=== PATIENT | female | born 1980 | race Caucasian/White ===

== ENCOUNTER → 2016-09-21 | Outpatient (CLI) | payer BC | LOC: MW.CHFP 14:59 | PROVIDERS: ATTEND Physician Assistant | DX: R10.9 Unspecified abdominal pain (principal) | CPT/HCPCS: 81001 ==

== ENCOUNTER 2017-01-11 02:44 | Emergency (ER) | payer BC, MEDICAID ==
--- NOTE | 2017-01-11 03:09 | EDM.PDOC ---
ED HPI GENERAL MEDICAL PROBLEM - General Chief Complaint: Chest Pain Stated Complaint: UNK Time Seen by Provider: 01/11/17 03:07 - History of Present Illness INITIAL COMMENTS - FREE TEXT/NARRATIVE: HISTORY AND PHYSICAL: History of present illness: Patient 36-year-old female presents with concern of chest pain and anxiety she denies associated shortness breath palpitations nausea vomiting or other complaints states she's been under a lot of personal stress lately Review of systems: As per history of present illness and below otherwise all systems reviewed and negative. Past medical history: As per history of present illness and as reviewed below otherwise noncontributory. Surgical history: As per history of present illness and as reviewed below otherwise noncontributory. Social history: No reported history of drug or alcohol abuse. Family history: As per history of present illness and as reviewed below otherwise noncontributory. Physical exam: HEENT: Atraumatic, normocephalic, pupils reactive, negative for conjunctival pallor or scleral icterus, mucous membranes moist, throat clear, neck supple, nontender, trachea midline. Lungs: Clear to auscultation, breath sounds equal bilaterally, chest nontender. Heart: S1S2, regular, negative for clicks, rubs, or JVD. Abdomen: Soft, nondistended, nontender. Negative for masses or hepatosplenomegaly. Negative for costovertebral tenderness. Pelvis: Stable nontender. Genitourinary: Deferred. Rectal: Deferred. Extremities: Atraumatic, negative for cords or calf pain. Neurovascular unremarkable. Neuro: Awake, alert, oriented. Cranial nerves II through XII unremarkable. Cerebellum unremarkable. Motor and sensory unremarkable throughout. Exam nonfocal. Diagnostics: CBC CMP troponin PT/INR chest x-ray EKG Therapeutics: IV O2 monitor Impression: #1 atypical chest pain #2 anxiety Definitive disposition and diagnosis as appropriate pending reevaluation and review of above. chest pain Pain Score (Numeric/FACES): 5 - Related Data Allergies Allergy/AdvReac Type Severity Reaction Status Date / Time diphenhydramine Allergy hard time Verified 01/11/17 02:50 [From Benadryl] breathing divalproex sodium Allergy Change Verified 01/11/17 02:50 [From Depakote] Mental Status fluoxetine HCl [From Prozac] Allergy Change Verified 01/11/17 02:50 Mental Status gabapentin [From Neurontin] Allergy Change Verified 01/11/17 02:50 Mental Status Penicillins Allergy Difficulty Verified 01/11/17 02:50 Breathing Dtp Shot Allergy Cannot Uncoded 01/11/17 02:50 Remember Home Meds: Home Meds Ascorbic Acid [Vitamin C] 2 tab PO DAILY 07/24/16 [History] Past Medical History - Past Health History Medical/Surgical History: Denies Medical/Surgical History HEENT History: Reports: None Cardiovascular History: Reports: Other (See Below) Other Cardiovascular History: palpitations Respiratory History: Reports: None, Other (See Below) Other Respiratory History: REports sleep apnea, "but not bad enough for a machine", Current cold symptoms "cough, runny nose, pushing fluids to releave symptoms" Gastrointestinal History: Reports: None Other Gastrointestinal History: REcent abodminal Pain Genitourinary History: Reports: None 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 OB/BYN History: cyst on right ovary Musculoskeletal History: Reports: None, Other (See Below) Other Musculoskeletal History: Raynauds Disease Neurological History: Reports: Seizure Psychiatric History: Reports: Anxiety, Depression Endocrine/Metabolic History: Reports: None Other Endocrine/Metabolic History: Have been checking and watching my Thyroid Hematologic History: Reports: None Immunologic History: Reports: None Oncologic (Cancer) History: Reports: None Dermatologic History: Reports: None, Other (See Below) Other Dermatologic History: Eczema - Infectious Disease History Infectious Disease History: Reports: Chicken Pox - Past Surgical History Head Surgeries/Procedures: Reports: None HEENT Surgical History: Reports: None GI Surgical History: Reports: None Female Surgical History: Reports: Section Neurological Surgical History: Reports: None Oncologic Surgical History: Reports: None Social & Family History - Family History Family Medical History: Unobtainable - Tobacco Use Smoking Status *Q: Current Every Day Smoker Years of Tobacco use: 13 Packs/Tins Daily: 0.5 Used Tobacco, but Quit: No Second Hand Smoke Exposure: Yes - Caffeine Use Caffeine Use: Reports: Energy Drinks - Alcohol Use Days Per Week of Alcohol Use: 0 - Recreational Drug Use Recreational Drug Use: No Drug Use in Last 12 Months: No ED ROS GENERAL - Review of Systems Review Of Systems: ROS reveals no pertinent complaints other than HPI. ED EXAM, GENERAL - Physical Exam Exam: See Below (See dictation) Course - Vital Signs Last Recorded V/S: Last Vital Signs Temp 36.9 C 01/11/17 02:50 Pulse 90 01/11/17 02:50 Resp 18 01/11/17 02:50 BP 130/96 H 01/11/17 02:50 Pulse Ox 100 01/11/17 02:50 - Orders/Labs/Meds Orders: Active Orders 24 hr Category Date Time Status EKG Documentation Completion [RC] STAT Care 01/11/17 03:00 Active Chest 1V Frontal [CR] Stat Exams 01/11/17 03:00 Ordered COMPREHENSIVE METABOLIC PN,CMP [CHEM] Stat Lab 01/11/17 02:50 Received INR,PT,PROTHROMBIN TIME [COAG] Stat Lab 01/11/17 02:50 Received TROPONIN I [CHEM] Stat Lab 01/11/17 02:50 Received Labs: Laboratory Tests 01/11/17 Range/Units 02:50 WBC 12.86 H (4.0-11.0) K/uL RBC 4.56 (4.30-5.90) M/uL Hgb 13.9 (12.0-16.0) g/dL Hct 40.8 (36.0-46.0) % MCV 89.5 (80.0-98.0) fL MCH 30.5 (27.0-32.0) pg MCHC 34.1 (31.0-37.0) g/dL RDW Std Deviation 42.9 (28.0-62.0) fl RDW Coeff of Arpit 13 (11.0-15.0) % Plt Count 446 H (150-400) K/uL MPV 10.30 (7.40-12.00) fL Neut % (Auto) 55.1 (48.0-80.0) % Lymph % (Auto) 34.0 (16.0-40.0) % Bladen % (Auto) 7.2 (0.0-15.0) % Eos % (Auto) 2.8 (0.0-7.0) % Baso % (Auto) 0.9 (0.0-1.5) % Neut # (Auto) 7.1 H (1.4-5.7) K/uL Lymph # (Auto) 4.4 H (0.6-2.4) K/uL Bladen # (Auto) 0.9 H (0.0-0.8) K/uL Eos # (Auto) 0.4 (0.0-0.7) K/uL Baso # (Auto) 0.1 (0.0-0.1) K/uL Nucleated RBC % 0.0 /100WBC Nucleated RBCs # 0 K/uL Departure - Departure Time of Disposition: 03:08 Disposition: Home, Self-Care 01 Condition: Good Clinical Impression: Atypical chest pain, Anxiety - Discharge Information Forms: ED Department Discharge Additional Instructions: The following information is given to patients seen in the emergency department who are being discharged to home. This information is to outline your options for follow-up care. We provide all patients seen in our emergency department with a follow-up referral. The need for follow-up, as well as the timing and circumstances, are variable depending upon the specifics of your emergency department visit. If you don't have a primary care physician on staff, we will provide you with a referral. We always advise you to contact your personal physician following an emergency department visit to inform them of the circumstance of the visit and for follow-up with them and/or the need for any referrals to a consulting specialist. The emergency department will also refer you to a specialist when appropriate. This referral assures that you have the opportunity for followup care with a specialist. All of these measure are taken in an effort to provide you with optimal care, which includes your followup. Under all circumstances we always encourage you to contact your private physician who remains a resource for coordinating your care. When calling for followup care, please make the office aware that this follow-up is from your recent emergency room visit. If for any reason you are refused follow-up, please contact the [facility] emergency department at and asked to speak to the emergency department charge nurse. Follow-up primary medical doctor 1-2 days continue current medications return as needed as discussed - My Orders Last 24 Hours: My Active Orders 01/11/17 02:50 COMPREHENSIVE METABOLIC PN,CMP [CHEM] Stat INR,PT,PROTHROMBIN TIME [COAG] Stat TROPONIN I [CHEM] Stat 01/11/17 03:00 EKG Documentation Completion [RC] STAT Chest 1V Frontal [CR] Stat - Assessment/Plan Last 24 Hours: My Active Orders 01/11/17 02:50 COMPREHENSIVE METABOLIC PN,CMP [CHEM] Stat INR,PT,PROTHROMBIN TIME [COAG] Stat TROPONIN I [CHEM] Stat 01/11/17 03:00 EKG Documentation Completion [RC] STAT Chest 1V Frontal [CR] Stat
[2017-01-11 03:25] LABS: CHLORIDE,CL 112 mmol/L (98-110); SODIUM,NA 143 mmol/L (136-146)
[2017-01-11 04:03] VITALS: BP 122/77
--- NOTE | 2017-01-11 16:52 | CR ---
EXAM DATE: 01/11/17 PATIENT'S AGE: 36 Patient: KULWANT BOWEN Facility: [place], [place] Site . Site : 1980 Study: XRay Chest [id number]/7/2017 3:14:57 AM Ordering Physician: Doctor Perez Final Report: INDICATION: chest pain TECHNIQUE: Chest radiograph 1 view COMPARISON: 11/25/15 FINDINGS: Cardiovascular and mediastinum: The cardiac silhouette is normal in appearance and size. Mediastinum is within normal limits. Lungs and pleural space: Both lungs are unremarkable in appearance. No sign of pleural effusion. No pneumothorax is seen. Bones and soft tissues: No significant findings. IMPRESSION: 1. No acute cardiopulmonary disease seen. Dictated by: Floyd Don MD @ 01/11/2017 03:15:38 (Electronic Signature) Report Signed by Proxy. JOAN
== END 2017-01-11 04:00 | disposition home or self-care (01) ==
LOC: MW.ED 02:44
DX: F41.9 Anxiety disorder, unspecified (principal); F17.210 Nicotine dependence, cigarettes, uncomplicated; Z88.0 Allergy status to penicillin; Z88.8 Allergy status to other drugs, medicaments and biological substances; Z79.899 Other long term (current) drug therapy
CPT/HCPCS: 36415; 71010; 71010-26; 80053; 84484; 85025; 85610; 93005; 99283; 99284-25

== ENCOUNTER 2017-01-21 14:52 | Emergency (ER) | payer SELFPAY ==
--- NOTE | 2017-01-21 15:14 | EDM.PDOC ---
ED HPI GENERAL MEDICAL PROBLEM - General Chief Complaint: General Stated Complaint: SWALLOWED GLASS Time Seen by Provider: 01/21/17 14:56 Source of Information: Reports: Patient History Limitations: Reports: No Limitations - History of Present Illness INITIAL COMMENTS - FREE TEXT/NARRATIVE: History of present illness: []Patient drank out of a glass coffee drink at 10 AM and felt like she swallowed some shards of glass. She's been reading on the Internet all day to see if she should come to the ED and decided to come in after feeling pain in her lower anterior neck and chest. Patient denies coughing up or vomiting any blood since. She normally has abdominal pain and has not had any change in her symptoms. Patient has difficulty focusing as she states when it gets hot her Raynaud's disease prohibits her from concentrating. Review of systems: As per history of present illness and below otherwise all systems reviewed and negative. Past medical history: As per history of present illness and as reviewed below otherwise noncontributory. Surgical history: As per history of present illness and as reviewed below otherwise noncontributory. Social history: No reported history of drug or alcohol abuse. Family history: As per history of present illness and as reviewed below otherwise noncontributory. Physical exam: General: Well developed, well nourished in NAD HEENT: Atraumatic, normocephalic, pupils reactive, negative for conjunctival pallor or scleral icterus, mucous membranes moist, throat clear, neck supple, nontender, trachea midline. Lungs: Clear to auscultation, breath sounds equal bilaterally, chest nontender. Heart: S1S2, regular, negative for clicks, rubs, or JVD. Abdomen: Soft, nondistended, nontender. Negative for masses or hepatosplenomegaly. Negative for costovertebral tenderness. Pelvis: Stable nontender. Genitourinary: Deferred. Rectal: Deferred. Extremities: Atraumatic, negative for cords or calf pain. Neurovascular unremarkable. Neuro: Awake, alert, oriented. Cranial nerves II through XII unremarkable. Cerebellum unremarkable. Motor and sensory unremarkable throughout. Exam nonfocal. Diagnostics: []Chest and soft tissue neck X-rays are negative. Therapeutics: []Discussed with Dr. Thomas from general surgery and since patient is greater than 6 hours post ingestion there is no treatment necessary. Patient is to observe stools for blood or to return to ED immediately if any abdominal pain and bloody stools vomiting fevers or any other concerns occur Impression: []Accidental Ingestion of glass approximately 1 cm. Plan: []Follow-up PMD as needed. Definitive disposition and diagnosis as appropriate pending reevaluation and review of above. - Related Data Allergies Allergy/AdvReac Type Severity Reaction Status Date / Time diphenhydramine Allergy hard time Verified 01/11/17 02:50 [From Benadryl] breathing divalproex sodium Allergy Change Verified 01/11/17 02:50 [From Depakote] Mental Status fluoxetine HCl [From Prozac] Allergy Change Verified 01/11/17 02:50 Mental Status gabapentin [From Neurontin] Allergy Change Verified 01/11/17 02:50 Mental Status Penicillins Allergy Difficulty Verified 01/11/17 02:50 Breathing Dtp Shot Allergy Cannot Uncoded 01/11/17 02:50 Remember Home Meds: Home Meds Ascorbic Acid [Vitamin C] 2 tab PO DAILY 07/24/16 [History] Beta Mini 01/21/17 [History] Past Medical History - Past Health History Medical/Surgical History: Denies Medical/Surgical History HEENT History: Reports: None Cardiovascular History: Reports: Other (See Below) Other Cardiovascular History: palpitations Respiratory History: Reports: None, Other (See Below) Other Respiratory History: REports sleep apnea, "but not bad enough for a machine", Current cold symptoms "cough, runny nose, pushing fluids to releave symptoms" Gastrointestinal History: Reports: None Other Gastrointestinal History: REcent abodminal Pain Genitourinary History: Reports: None 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 OB/BYN History: cyst on right ovary Musculoskeletal History: Reports: None, Other (See Below) Other Musculoskeletal History: Raynauds Disease Neurological History: Reports: Seizure Psychiatric History: Reports: Anxiety, Depression Endocrine/Metabolic History: Reports: None Other Endocrine/Metabolic History: Have been checking and watching my Thyroid Hematologic History: Reports: None Immunologic History: Reports: None Oncologic (Cancer) History: Reports: None Dermatologic History: Reports: None, Other (See Below) Other Dermatologic History: Eczema - Infectious Disease History Infectious Disease History: Reports: Chicken Pox - Past Surgical History Head Surgeries/Procedures: Reports: None HEENT Surgical History: Reports: None GI Surgical History: Reports: None Female Surgical History: Reports: Section Neurological Surgical History: Reports: None Oncologic Surgical History: Reports: None Social & Family History - Family History Family Medical History: Unobtainable - Tobacco Use Smoking Status *Q: Current Every Day Smoker Years of Tobacco use: 13 Packs/Tins Daily: 0.5 Used Tobacco, but Quit: No Second Hand Smoke Exposure: Yes - Caffeine Use Caffeine Use: Reports: Energy Drinks - Alcohol Use Days Per Week of Alcohol Use: 0 - Recreational Drug Use Recreational Drug Use: No Drug Use in Last 12 Months: No ED ROS GENERAL - Review of Systems Review Of Systems: See Below ED EXAM, GENERAL - Physical Exam Exam: See Below (See history of present illness) Course - Vital Signs Last Recorded V/S: Last Vital Signs Temp 36.9 C 01/21/17 15:06 Pulse 93 01/21/17 15:06 Resp 20 01/21/17 15:06 BP 138/66 01/21/17 15:06 Pulse Ox 97 01/21/17 15:06 Departure - Departure Time of Disposition: 16:14 Disposition: Home, Self-Care 01 Condition: Good Clinical Impression: Accidental ingestion of potentially harmful entity - Discharge Information Referrals: PCP,None [Primary Care Provider] - Forms: ED Department Discharge Additional Instructions: The following information is given to patients seen in the emergency department who are being discharged to home. This information is to outline your options for follow-up care. We provide all patients seen in our emergency department with a follow-up referral. The need for follow-up, as well as the timing and circumstances, are variable depending upon the specifics of your emergency department visit. If you don't have a primary care physician on staff, we will provide you with a referral. We always advise you to contact your personal physician following an emergency department visit to inform them of the circumstance of the visit and for follow-up with them and/or the need for any referrals to a consulting specialist. The emergency department will also refer you to a specialist when appropriate. This referral assures that you have the opportunity for follow-up care with a specialist. All of these measure are taken in an effort to provide you with optimal care, which includes your follow-up. Under all circumstances we always encourage you to contact your private physician who remains a resource for coordinating your care. When calling for follow-up care, please make the office aware that this follow-up is from your recent emergency room visit. If for any reason you are refused follow-up, please contact the [facility] Emergency Department at and asked to speak to the emergency department charge nurse. Return to ER if any abdominal pain, fevers, vomiting, bloody stools or abdominal distention occurs. Follow-up with PMD as needed [facility] [address] [place] [id number]
--- NOTE | 2017-01-21 15:57 | CR ---
EXAMINATION: Two-view chest (PA and Lateral views). HISTORY: Shortness of breath. FINDINGS: The trachea is midline. The cardiomediastinal silhouette is within normal limits. No pulmonary infil trates, effusions or pneumothorax. Osseous structures appear unremarkable. IMPRESSION: No acute cardiopulmonary process.
--- NOTE | 2017-01-21 15:58 | CR ---
EXAMINATION: Soft tissue neck HISTORY: Swallowed glass COMPARISON: None TECHNIQUE: AP and lateral views FINDINGS: There is a trace reversal of the normal cervical lordosis with mild marginal osteophyte fo rmation. The osseous structures otherwise appear normal. The epiglottis appears normal. The preverte bral soft tissues are within normal limits. The upper trachea appears normal in caliber. The lung ap ices are clear. IMPRESSION: Unremarkable soft tissue neck.
[2017-01-21 16:31] VITALS: BP 100/61
== END 2017-01-21 16:30 | disposition home or self-care (01) ==
LOC: MW.ED 14:52
DX: T18.0XXA Foreign body in mouth, initial encounter (principal); F17.210 Nicotine dependence, cigarettes, uncomplicated; Z88.0 Allergy status to penicillin; Z88.8 Allergy status to other drugs, medicaments and biological substances
CPT/HCPCS: 70360; 70360-26; 71020; 71020-26; 99283

== ENCOUNTER 2017-08-14 09:40 | Emergency (ER) | payer BC ==
[2017-08-14 10:01] VITALS: BP 138/83
--- NOTE | 2017-08-14 10:06 | EDM.PDOC ---
ED HPI GENERAL MEDICAL PROBLEM - General Chief Complaint: General Stated Complaint: CHEST PAIN Time Seen by Provider: 08/14/17 09:49 Source of Information: Reports: Patient History Limitations: Reports: No Limitations - History of Present Illness INITIAL COMMENTS - FREE TEXT/NARRATIVE: History of present illness: []Patient arrives complaining of feeling dizziness similar to being lightheaded. Patient states she woke up at 3 AM with watery diarrhea and has had 2 episodes. She is not vomiting denies any abdominal pain, fevers, chills or cough. Patient states 30 minutes prior to arrival she developed chest pain that she is unable to describe or locate. She denies being short of breath, sweating having any syncope. 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 Patient states that where she works there is black mold she is concerned that maybe he affecting her. Patient denies drinking much fluids and has decreased urine output. She was diagnosed with Raynauds syndrome and states it makes her feel similar to this when it occurs, however she denies having any Raynaud's episodes today. She denies any alcohol or drug use Review of systems: As per history of present illness and below otherwise all systems reviewed and negative. Past medical history: As per history of present illness and as reviewed below otherwise noncontributory. Surgical history: As per history of present illness and as reviewed below otherwise noncontributory. Social history: No reported history of drug or alcohol abuse. Family history: As per history of present illness and as reviewed below otherwise noncontributory. Physical exam: General: Well developed, well nourished in NAD HEENT: Atraumatic, normocephalic, pupils reactive, negative for conjunctival pallor or scleral icterus, mucous membranes moist, throat clear, neck supple, nontender, trachea midline. Lungs: Clear to auscultation, breath sounds equal bilaterally, chest nontender. Heart: S1S2, regular, negative for clicks, rubs, or JVD. Abdomen: Soft, nondistended, nontender. Negative for masses or hepatosplenomegaly. Negative for costovertebral tenderness. Pelvis: Stable nontender. Genitourinary: Deferred. Rectal: Deferred. Extremities: Atraumatic, negative for cords or calf pain. Neurovascular unremarkable. Neuro: Awake, alert, oriented. Cranial nerves II through XII unremarkable. Cerebellum unremarkable. Motor and sensory unremarkable throughout. Exam nonfocal. Diagnostics: []EKG no change no scheming changes Therapeutics: [] Impression: []Dizziness Plan: []Increase fluids follow-up with PMD Definitive disposition and diagnosis as appropriate pending reevaluation and review of above. - Related Data Allergies Allergy/AdvReac Type Severity Reaction Status Date / Time diphenhydramine Allergy hard time Verified 08/14/17 09:57 [From Benadryl] breathing divalproex sodium Allergy Change Verified 08/14/17 09:57 [From Depakote] Mental Status fluoxetine HCl [From Prozac] Allergy Change Verified 08/14/17 09:57 Mental Status gabapentin [From Neurontin] Allergy Change Verified 08/14/17 09:57 Mental Status Penicillins Allergy Difficulty Verified 08/14/17 09:57 Breathing Dtp Shot Allergy Cannot Uncoded 01/11/17 02:50 Remember Home Meds: Home Meds Ascorbic Acid [Vitamin C] 2 tab PO DAILY 07/24/16 [History] Beta Mini 01/21/17 [History] Past Medical History - Past Health History Medical/Surgical History: Denies Medical/Surgical History HEENT History: Reports: None Cardiovascular History: Reports: Other (See Below) Other Cardiovascular History: palpitations Respiratory History: Reports: None, Other (See Below) Other Respiratory History: REports sleep apnea, "but not bad enough for a machine", Current cold symptoms "cough, runny nose, pushing fluids to releave symptoms" Gastrointestinal History: Reports: None Other Gastrointestinal History: REcent abodminal Pain Genitourinary History: Reports: None 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 OB/BYN History: cyst on right ovary Musculoskeletal History: Reports: None, Other (See Below) Other Musculoskeletal History: Raynauds Disease Neurological History: Reports: Seizure Psychiatric History: Reports: Anxiety, Depression Endocrine/Metabolic History: Reports: None Other Endocrine/Metabolic History: Have been checking and watching my Thyroid Hematologic History: Reports: None Immunologic History: Reports: None Oncologic (Cancer) History: Reports: None Dermatologic History: Reports: None, Other (See Below) Other Dermatologic History: Eczema - Infectious Disease History Infectious Disease History: Reports: Chicken Pox - Past Surgical History Head Surgeries/Procedures: Reports: None HEENT Surgical History: Reports: None GI Surgical History: Reports: None Female Surgical History: Reports: Section Neurological Surgical History: Reports: None Oncologic Surgical History: Reports: None Social & Family History - Family History Family Medical History: Unobtainable - Tobacco Use Smoking Status *Q: Current Every Day Smoker Years of Tobacco use: 13 Packs/Tins Daily: 0.5 Used Tobacco, but Quit: No Second Hand Smoke Exposure: Yes - Caffeine Use Caffeine Use: Reports: Energy Drinks - Alcohol Use Days Per Week of Alcohol Use: 0 - Recreational Drug Use Recreational Drug Use: No Drug Use in Last 12 Months: No ED ROS GENERAL - Review of Systems Review Of Systems: See Below (See history of present illness) ED EXAM, GENERAL - Physical Exam Exam: See Below (See history of present illness) Course - Vital Signs Last Recorded V/S: Last Vital Signs Temp 97.7 F 08/14/17 09:52 Pulse 96 08/14/17 09:52 Resp 18 08/14/17 09:52 BP 138/83 08/14/17 09:52 Pulse Ox 98 08/14/17 09:52 - Orders/Labs/Meds Orders: Active Orders 24 hr Category Date Time Status EKG Documentation Completion [RC] STAT Care 08/14/17 09:59 Active Departure - Departure Time of Disposition: 10:14 Disposition: Home, Self-Care 01 Condition: Good Clinical Impression: Dehydration, Dizziness - Discharge Information Referrals: PCP,Unknown [Primary Care Provider] - Jayesh Lee MD [Resident] - Forms: ED Department Discharge Additional Instructions: The following information is given to patients seen in the emergency department who are being discharged to home. This information is to outline your options for follow-up care. We provide all patients seen in our emergency department with a follow-up referral. The need for follow-up, as well as the timing and circumstances, are variable depending upon the specifics of your emergency department visit. If you don't have a primary care physician on staff, we will provide you with a referral. We always advise you to contact your personal physician following an emergency department visit to inform them of the circumstance of the visit and for follow-up with them and/or the need for any referrals to a consulting specialist. The emergency department will also refer you to a specialist when appropriate. This referral assures that you have the opportunity for follow-up care with a specialist. All of these measure are taken in an effort to provide you with optimal care, which includes your follow-up. Under all circumstances we always encourage you to contact your private physician who remains a resource for coordinating your care. When calling for follow-up care, please make the office aware that this follow-up is from your recent emergency room visit. If for any reason you are refused follow-up, please contact the [facility] Emergency Department at and asked to speak to the emergency department charge nurse. [facility] [address] [place] [address] - My Orders Last 24 Hours: My Active Orders 08/14/17 09:59 EKG Documentation Completion [RC] STAT - Assessment/Plan Last 24 Hours: My Active Orders 08/14/17 09:59 EKG Documentation Completion [RC] STAT
== END 2017-08-14 10:15 | disposition home or self-care (01) ==
LOC: MW.ED 09:40
DX: E86.0 Dehydration (principal); F17.210 Nicotine dependence, cigarettes, uncomplicated; Z88.0 Allergy status to penicillin; Z88.8 Allergy status to other drugs, medicaments and biological substances; Z79.899 Other long term (current) drug therapy
CPT/HCPCS: 93005; 99283; 99283-25

== ENCOUNTER 2017-11-20 21:50 | Emergency (ER) | payer MEDICAID | END 2017-11-20 23:00 | disposition left against medical advice (07) | LOC: MW.ED 21:50 | DX: Z53.21 Procedure and treatment not carried out due to patient leaving prior to being seen by health care provider (principal) ==

== ENCOUNTER 2017-11-28 09:55 | Emergency (ER) | payer MEDICAID ==
[2017-11-28] MEDS ORDERED: Ondansetron 4 MG/2 ML SDV IVPUSH ONE (10:14)
[2017-11-28] MEDS ORDERED: Sodium Chloride 0.9% 1,000 ML IV ONE (10:14)
--- NOTE | 2017-11-28 10:28 | EDM.PDOC ---
ED HPI GENERAL MEDICAL PROBLEM - General Chief Complaint: Chest Pain Stated Complaint: CHEST PAIN Time Seen by Provider: 11/28/17 10:04 Source of Information: Reports: Patient History Limitations: Reports: No Limitations - History of Present Illness INITIAL COMMENTS - FREE TEXT/NARRATIVE: HISTORY AND PHYSICAL: History of present illness: Patient is a 37-year-old female who is brought to the emergency room with complaints of anxiety, nausea, chronic low back pain and epigastric pain that radiates up to her mid sternal chest. She states she tried to call to set up an appointment with her primary care provider but they requested she come here for an evaluation. Patient continues to discuss her symptoms and how she feels that it is all related to her increased anxiety and depression. Has increased stressors as her daughter has multiple mental health issues and she is having to work two jobs to support her family. She states she currently does not take any medications for her anxiety or depression. Denies any complications or problems related to ther Raynauds disease. Patient has a history of Raynaud's disease, chronic back pain, and palpitations. Review of systems: As per history of present illness and below otherwise all systems reviewed and negative. Past medical history: As per history of present illness and as reviewed below otherwise noncontributory. Surgical history: As per history of present illness and as reviewed below otherwise noncontributory. Social history: No reported history of drug or alcohol abuse. Family history: As per history of present illness and as reviewed below otherwise noncontributory. Physical exam: General: Well-developed and well-nourished 37-year-old female. Flat, alert and oriented. Nontoxic appearing and in no acute distress. HEENT: Atraumatic, normocephalic, pupils equal and reactive bilaterally, negative for conjunctival pallor or scleral icterus, mucous membranes moist, throat clear, neck supple, nontender, trachea midline. No drooling or trismus noted. No meningeal signs Lungs: Clear to auscultation, breath sounds equal bilaterally, chest tenderness to midsternum ("makes me feel nauseated"). Heart: S1S2, regular rate and rhythm without overt murmur Abdomen: Soft, nondistended, epigastric tenderness. Negative for masses or hepatosplenomegaly. Negative for costovertebral tenderness. Pelvis: Stable nontender. Genitourinary: Deferred. Rectal: Deferred. Skin: Intact, warm, dry. No lesions or rashes noted. Extremities: Atraumatic, negative for cords or calf pain. Neurovascular unremarkable. Neuro: Awake, alert, oriented. Cranial nerves II through XII unremarkable. Cerebellum unremarkable. Motor and sensory unremarkable throughout. Exam nonfocal. Notes: Initially the patient states that she has not been able to get into the clinic as they would not see her due to her complaints. Our nursing staff did call the clinic to set up a follow-up appointment for her, per the patient's request. Nursing staff found out that she has an appointment today at 10:45 AM, this is shared with the patient. Patient was surprised and did not remember making an appointment. She requested that we cancel her appointment today as she would like to continue to be seen in our emergency room. Patient reports she recently was seen by her PCP. Lab work showed she was deficient in Vitamin D. States she has been taking "overdosed amounts of Vitamin D" due to the research she did online about her chronic "bone pain'. She states, "I know this isn't my heart... but I want to be checked for sepsis... and get to the bottom of why I am deficient in vitamin D". She is aware of the limitations that the ED can offer as far as tests that should be done through PCP. Pain is gone, "I feel so much better" after the GI cocktail. + H.Pylori, otherwise lab work is unremarkable. Her EKG shows a normal sinus rhythm. X-ray shows no infiltrate or evidence of pneumonia. Vital signs are stable. She does voice multiple concerns about anxiety. I encouraged her to follow-up with her primary care provider for further evaluation and management of this. An appointment was made for her for December 09 at 3:15 PM at [facility] clinic. She voices understanding and is agreeable to plan of care. She denies any further questions at this time. Diagnostics: CBC, CMP, UA, troponin, EKG, one view chest x-ray, Heliobacter Pylori Therapeutics: GI cocktail, Zofran Impression: Anxiety H.Pylori Infection Plan: 1. You have an appointment made December 09, at 3:15pm with Rafi Billingsley at [facility]. 2. Decrease your stressors at home. Whether you want to incorporate deep breathing exercises, go for a 10 minute walk, etc... to try to minimize stress 3. + H.pylori infection which will require you to take 3 medications ( Eradication Therapy). Avoid alcohol while taking these medication. 4. Follow up with your primary care provider as you've had arranged for you, or sooner as needed. Return to the ED as needed as discussed. Definitive disposition and diagnosis as appropriate pending reevaluation and review of above. Onset: Today Middle Chest Pain Score (Numeric/FACES): 4 - Related Data Allergies Allergy/AdvReac Type Severity Reaction Status Date / Time diphenhydramine Allergy hard time Verified 11/28/17 10:04 [From Benadryl] breathing divalproex sodium Allergy Change Verified 11/28/17 10:04 [From Depakote] Mental Status fluoxetine HCl [From Prozac] Allergy Change Verified 11/28/17 10:04 Mental Status gabapentin [From Neurontin] Allergy Change Verified 11/28/17 10:04 Mental Status Penicillins Allergy Difficulty Verified 11/28/17 10:04 Breathing Dtp Shot Allergy Cannot Uncoded 11/28/17 10:04 Remember Home Meds: Home Meds Ascorbic Acid [Vitamin C] 2 tab PO DAILY 07/24/16 [History] Beta Mini 01/21/17 [History] Naproxen PO DAILY 11/28/17 [History] Past Medical History - Past Health History Medical/Surgical History: Denies Medical/Surgical History HEENT History: Reports: None Cardiovascular History: Reports: Other (See Below) Other Cardiovascular History: palpitations Respiratory History: Reports: None, Other (See Below) Other Respiratory History: Reports sleep apnea, "but not bad enough for a machine" Gastrointestinal History: Reports: None Other Gastrointestinal History: REcent abodminal Pain Genitourinary History: Reports: None 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 OB/BYN History: cyst on right ovary Musculoskeletal History: Reports: None, Back Pain, Chronic, Other (See Below) Other Musculoskeletal History: Raynauds Disease Neurological History: Reports: Seizure Psychiatric History: Reports: Anxiety, Depression Endocrine/Metabolic History: Reports: None Other Endocrine/Metabolic History: Have been checking and watching my Thyroid, "vitamin D3 deficit" Hematologic History: Reports: None Immunologic History: Reports: None Oncologic (Cancer) History: Reports: None Dermatologic History: Reports: None, Other (See Below) Other Dermatologic History: Eczema - Infectious Disease History Infectious Disease History: Reports: Chicken Pox - Past Surgical History Head Surgeries/Procedures: Reports: None HEENT Surgical History: Reports: None GI Surgical History: Reports: None Female Surgical History: Reports: Section, Other (See Below) Other Female Surgeries/Procedures: x2 Neurological Surgical History: Reports: None Oncologic Surgical History: Reports: None Social & Family History - Family History Family Medical History: Noncontributory - Tobacco Use Smoking Status *Q: Current Every Day Smoker Years of Tobacco use: 15 Packs/Tins Daily: 1 - Caffeine Use Caffeine Use: Reports: Coffee, Energy Drinks, Soda, Tea - Recreational Drug Use Recreational Drug Use: No ED ROS GENERAL - Review of Systems Review Of Systems: ROS reveals no pertinent complaints other than HPI. ED EXAM, GENERAL - Physical Exam Exam: See Below (See dictation) Course - Vital Signs Last Recorded V/S: Last Vital Signs Temp 96.8 F 11/28/17 10:00 Pulse 76 11/28/17 11:44 Resp 16 11/28/17 11:44 BP 132/71 11/28/17 11:44 Pulse Ox 98 11/28/17 11:44 - Orders/Labs/Meds Orders: Active Orders 24 hr Category Date Time Status EKG Documentation Completion [RC] STAT Care 11/28/17 10:05 Active UA W/MICROSCOPIC [URIN] Stat Lab 11/28/17 11:15 Ordered Labs: Laboratory Tests 11/28/17 11/28/17 11/28/17 Range/Units 10:17 10:17 10:17 WBC 9.50 (4.0-11.0) K/uL RBC 4.63 (4.30-5.90) M/uL Hgb 13.5 (12.0-16.0) g/dL Hct 40.2 (36.0-46.0) % MCV 86.8 (80.0-98.0) fL MCH 29.2 (27.0-32.0) pg MCHC 33.6 (31.0-37.0) g/dL RDW Std Deviation 42.9 (28.0-62.0) fl RDW Coeff of Arpit 14 (11.0-15.0) % Plt Count 401 H (150-400) K/uL MPV 10.60 (7.40-12.00) fL Neut % (Auto) 61.7 (48.0-80.0) % Lymph % (Auto) 26.8 (16.0-40.0) % Foster % (Auto) 7.5 (0.0-15.0) % Eos % (Auto) 3.3 (0.0-7.0) % Baso % (Auto) 0.7 (0.0-1.5) % Neut # (Auto) 5.9 H (1.4-5.7) K/uL Lymph # (Auto) 2.6 H (0.6-2.4) K/uL Foster # (Auto) 0.7 (0.0-0.8) K/uL Eos # (Auto) 0.3 (0.0-0.7) K/uL Baso # (Auto) 0.1 (0.0-0.1) K/uL Nucleated RBC % 0.0 /100WBC Nucleated RBCs # 0 K/uL Sodium 142 (136-145) mmol/L Potassium 4.0 (3.5-5.1) mmol/L Chloride 109 H (98-107) mmol/L Carbon Dioxide 23.8 (21.0-32.0) mmol/L BUN 17 (7.0-18.0) mg/dL Creatinine 0.8 (0.6-1.0) mg/dL Est Cr Clr Drug Dosing 91.88 mL/min Estimated GFR (MDRD) > 60.0 ml/min Glucose 119 H (74-106) mg/dL Calcium 9.1 (8.5-10.1) mg/dL Total Bilirubin 0.2 (0.2-1.0) mg/dL AST 17 (15-37) IU/L ALT 24 (14-63) IU/L Alkaline Phosphatase 39 L (46-116) U/L Troponin I < 0.050 (0.000-0.056) ng/mL Total Protein 7.0 (6.4-8.2) g/dL Albumin 3.3 L (3.4-5.0) g/dL Globulin 3.7 H (2.0-3.5) g/dL Albumin/Globulin Ratio 0.9 L (1.3-2.8) Urine Color Urine Appearance Urine pH (5.0-8.0) Ur Specific [place] (1.001-1.035) Urine Protein (NEGATIVE) mg/dL Urine Glucose (UA) (NEGATIVE) mg/dL Urine Ketones (NEGATIVE) mg/dL Urine Occult Blood (NEGATIVE) Urine Nitrite (NEGATIVE) Urine Bilirubin (NEGATIVE) Urine Urobilinogen (<2.0) EU/dL Ur Leukocyte Esterase (NEGATIVE) Urine RBC (0-2/HPF) Urine WBC (0-5/HPF) Ur Epithelial Cells (NONE-FEW) Urine Bacteria (NEGATIVE) Urine Mucus (NONE-MOD) H. pylori IgG Antibody POSITIVE H (NEG) 11/28/17 Range/Units 11:15 WBC (4.0-11.0) K/uL RBC (4.30-5.90) M/uL Hgb (12.0-16.0) g/dL Hct (36.0-46.0) % MCV (80.0-98.0) fL MCH (27.0-32.0) pg MCHC (31.0-37.0) g/dL RDW Std Deviation (28.0-62.0) fl RDW Coeff of Arpit (11.0-15.0) % Plt Count (150-400) K/uL MPV (7.40-12.00) fL Neut % (Auto) (48.0-80.0) % Lymph % (Auto) (16.0-40.0) % Foster % (Auto) (0.0-15.0) % Eos % (Auto) (0.0-7.0) % Baso % (Auto) (0.0-1.5) % Neut # (Auto) (1.4-5.7) K/uL Lymph # (Auto) (0.6-2.4) K/uL Foster # (Auto) (0.0-0.8) K/uL Eos # (Auto) (0.0-0.7) K/uL Baso # (Auto) (0.0-0.1) K/uL Nucleated RBC % /100WBC Nucleated RBCs # K/uL Sodium (136-145) mmol/L Potassium (3.5-5.1) mmol/L Chloride (98-107) mmol/L Carbon Dioxide (21.0-32.0) mmol/L BUN (7.0-18.0) mg/dL Creatinine (0.6-1.0) mg/dL Est Cr Clr Drug Dosing mL/min Estimated GFR (MDRD) ml/min Glucose (74-106) mg/dL Calcium (8.5-10.1) mg/dL Total Bilirubin (0.2-1.0) mg/dL AST (15-37) IU/L ALT (14-63) IU/L Alkaline Phosphatase (46-116) U/L Troponin I (0.000-0.056) ng/mL Total Protein (6.4-8.2) g/dL Albumin (3.4-5.0) g/dL Globulin (2.0-3.5) g/dL Albumin/Globulin Ratio (1.3-2.8) Urine Color YELLOW Urine Appearance CLEAR Urine pH 7.0 (5.0-8.0) Ur Specific [place] 1.015 (1.001-1.035) Urine Protein NEGATIVE (NEGATIVE) mg/dL Urine Glucose (UA) NEGATIVE (NEGATIVE) mg/dL Urine Ketones NEGATIVE (NEGATIVE) mg/dL Urine Occult Blood TRACE-LYSED (NEGATIVE) Urine Nitrite NEGATIVE (NEGATIVE) Urine Bilirubin NEGATIVE (NEGATIVE) Urine Urobilinogen 0.2 (<2.0) EU/dL Ur Leukocyte Esterase NEGATIVE (NEGATIVE) Urine RBC 0-1 (0-2/HPF) Urine WBC 1-3 (0-5/HPF) Ur Epithelial Cells FEW (NONE-FEW) Urine Bacteria FEW (NEGATIVE) Urine Mucus LIGHT (NONE-MOD) H. pylori IgG Antibody (NEG) Meds: Medications Discontinued Medications Generic Name Dose Route Start Last Admin Trade Name Freq PRN Reason Stop Dose Admin Al Hydroxide/Mg Hydroxide 15 0 ml 11/28/17 10:29 11/28/17 10:49 ml/ Metoclopramide HCl 5 mg/ PO 11/28/17 10:30 20 each Lidocaine HCl 5 ml ONETIME ONE Administration Sodium Chloride 1,000 mls @ 999 mls/hr 11/28/17 10:14 Normal Saline IV 11/28/17 11:14 STAT ONE Ondansetron HCl 4 mg 11/28/17 10:14 Zofran IVPUSH 11/28/17 10:15 ONETIME ONE Ondansetron HCl 4 mg 11/28/17 10:29 11/28/17 10:49 Zofran Odt PO 11/28/17 10:30 4 mg ONETIME ONE Administration Departure - Departure Time of Disposition: 11:27 Disposition: Home, Self-Care 01 Clinical Impression: Anxiety, Helicobacter pylori (H. pylori) infection Instructions: Helicobacter Pylori Infection, Living With Anxiety Referrals: PCP,None [Primary Care Provider] - Forms: ED Department Discharge Additional Instructions: The following information is given to patients seen in the emergency department who are being discharged to home. This information is to outline your options for follow-up care. We provide all patients seen in our emergency department with a follow-up referral. The need for follow-up, as well as the timing and circumstances, are variable depending upon the specifics of your emergency department visit. If you don't have a primary care physician on staff, we will provide you with a referral. We always advise you to contact your personal physician following an emergency department visit to inform them of the circumstance of the visit and for follow-up with them and/or the need for any referrals to a consulting specialist. The emergency department will also refer you to a specialist when appropriate. This referral assures that you have the opportunity for follow-up care with a specialist. All of these measure are taken in an effort to provide you with optimal care, which includes your follow-up. Under all circumstances we always encourage you to contact your private physician who remains a resource for coordinating your care. When calling for follow-up care, please make the office aware that this follow-up is from your recent emergency room visit. If for any reason you are refused follow-up, please contact the [facility] Emergency Department at and asked to speak to the emergency department charge nurse. [facility] [address] [place] [id number] 1. You have an appointment made December 09, at 3:15pm with Rafi Billingsley at [facility]. 2. Decrease your stressors at home. Whether you want to incorporate deep breathing exercises, go for a 10 minute walk, etc... to try to minimize stress 3. + H.pylori infection which will require you to take 3 medications ( Eradication Therapy). Avoid alcohol while taking these medication. 4. Follow up with your primary care provider as you've had arranged for you, or sooner as needed. Return to the ED as needed as discussed. - My Orders Last 24 Hours: My Active Orders 11/28/17 10:05 EKG Documentation Completion [RC] STAT 11/28/17 11:15 UA W/MICROSCOPIC [URIN] Stat - Assessment/Plan Last 24 Hours: My Active Orders 11/28/17 10:05 EKG Documentation Completion [RC] STAT 11/28/17 11:15 UA W/MICROSCOPIC [URIN] Stat
[2017-11-28] MEDS ORDERED: Ondansetron 4 MG Tab.DIS PO ONE (10:29)
[2017-11-28] MEDS ORDERED: Alum Hydrox/Mag Hydrox/Simeth 15 ML, Metoclopramide 5 MG, Lidocaine 2% 5 ML PO ONE ×3 (10:29)
[2017-11-28 11:04] LABS: CHLORIDE,CL 109 mmol/L (98-107); SODIUM,NA 142 mmol/L (136-145)
--- NOTE | 2017-11-28 11:14 | CR ---
EXAMINATION: Portable chest radiograph. HISTORY: Chest pain. FINDINGS: The trachea is midline. The cardiomediastinal silhouette is within normal limits. No pulmonary infilt rates, effusions or pneumothorax. Osseous structures appear unremarkable. IMPRESSION: No acute cardiopulmonary process.
[2017-11-28 11:46] VITALS: BP 132/71
== END 2017-11-28 12:06 | disposition home or self-care (01) ==
LOC: MW.ED 09:55
DX: A04.8 Other specified bacterial intestinal infections (principal); F41.9 Anxiety disorder, unspecified; F17.210 Nicotine dependence, cigarettes, uncomplicated; Z88.0 Allergy status to penicillin; Z88.8 Allergy status to other drugs, medicaments and biological substances; Z88.7 Allergy status to serum and vaccine; Z79.899 Other long term (current) drug therapy
CPT/HCPCS: 36415; 71045; 80053; 81001; 84484; 85025; 86677; 93005; 99285; A9270; 99283

== ENCOUNTER 2018-01-18 00:28 | Emergency (ER) | payer MEDICAID ==
[2018-01-18] MEDS ORDERED: Ketorolac 60 MG/2 ML SDV IM ONE (00:39)
--- NOTE | 2018-01-18 00:42 | EDM.PDOC ---
ED HPI GENERAL MEDICAL PROBLEM - General Chief Complaint: Back Pain or Injury Stated Complaint: SEVERE BACK PAIN Time Seen by Provider: 01/18/18 00:42 - History of Present Illness INITIAL COMMENTS - FREE TEXT/NARRATIVE: HISTORY AND PHYSICAL: History of present illness: Patient 37-year-old female presents with a concern of chronic back pain she is seen in our ER multiple times for a variety of different pain syndromes. There' s been no numbness weakness incontinence or retention bowel or bladder Review of systems: As per history of present illness and below otherwise all systems reviewed and negative. Past medical history: As per history of present illness and as reviewed below otherwise noncontributory. Surgical history: As per history of present illness and as reviewed below otherwise noncontributory. Social history: No reported history of drug or alcohol abuse. Family history: As per history of present illness and as reviewed below otherwise noncontributory. Physical exam: HEENT: Atraumatic, normocephalic, pupils reactive, negative for conjunctival pallor or scleral icterus, mucous membranes moist, throat clear, neck supple, nontender, trachea midline. Lungs: Clear to auscultation, breath sounds equal bilaterally, chest nontender. Heart: S1S2, regular, negative for clicks, rubs, or JVD. Abdomen: Soft, nondistended, nontender. Negative for masses or hepatosplenomegaly. Negative for costovertebral tenderness. Pelvis: Stable nontender. Genitourinary: Deferred. Rectal: Deferred. Extremities: Atraumatic, negative for cords or calf pain. Neurovascular unremarkable. Neuro: Awake, alert, oriented. Cranial nerves II through XII unremarkable. Cerebellum unremarkable. Motor and sensory unremarkable throughout. Exam nonfocal. Back: Patient has no vertebral body or point tenderness patient is able stand on her toes back on her heels motor and sensory are normal Diagnostics: None Therapeutics: Toradol 60 mg IM Impression: 1 chronic back pain Definitive disposition and diagnosis as appropriate pending reevaluation and review of above. lower back Pain Score (Numeric/FACES): 9 - Related Data Allergies Allergy/AdvReac Type Severity Reaction Status Date / Time diphenhydramine Allergy hard time Verified 01/18/18 00:37 [From Benadryl] breathing divalproex sodium Allergy Change Verified 01/18/18 00:37 [From Depakote] Mental Status fluoxetine HCl [From Prozac] Allergy Change Verified 01/18/18 00:37 Mental Status gabapentin [From Neurontin] Allergy Change Verified 01/18/18 00:37 Mental Status Penicillins Allergy Difficulty Verified 01/18/18 00:37 Breathing Dtp Shot Allergy Cannot Uncoded 01/18/18 00:37 Remember Home Meds: Home Meds Beta Mini 01/21/17 [History] Past Medical History - Past Health History Medical/Surgical History: Denies Medical/Surgical History HEENT History: Reports: None Cardiovascular History: Reports: Other (See Below) Other Cardiovascular History: palpitations Respiratory History: Reports: None, Other (See Below) Other Respiratory History: Reports sleep apnea, "but not bad enough for a machine" Gastrointestinal History: Reports: None Other Gastrointestinal History: REcent abodminal Pain Genitourinary History: Reports: None 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 Musculoskeletal History: Reports: None, Back Pain, Chronic, Other (See Below) Other Musculoskeletal History: Raynauds Disease Neurological History: Reports: Seizure Psychiatric History: Reports: Anxiety, Depression Endocrine/Metabolic History: Reports: None Other Endocrine/Metabolic History: Have been checking and watching my Thyroid, "vitamin D3 deficit" Hematologic History: Reports: None Immunologic History: Reports: None Oncologic (Cancer) History: Reports: None Dermatologic History: Reports: None, Other (See Below) Other Dermatologic History: Eczema - Infectious Disease History Infectious Disease History: Reports: Chicken Pox - Past Surgical History Head Surgeries/Procedures: Reports: None HEENT Surgical History: Reports: None GI Surgical History: Reports: None Female Surgical History: Reports: Section, Other (See Below) Other Female Surgeries/Procedures: x2 Neurological Surgical History: Reports: None Oncologic Surgical History: Reports: None Social & Family History - Family History Family Medical History: Noncontributory - Caffeine Use Caffeine Use: Reports: Coffee, Energy Drinks, Soda, Tea ED ROS GENERAL - Review of Systems Review Of Systems: ROS reveals no pertinent complaints other than HPI. ED EXAM, GENERAL - Physical Exam Exam: See Below (Dictation) Course - Vital Signs Last Recorded V/S: Last Vital Signs Temp 36.7 C 01/18/18 00:34 Pulse 107 H 01/18/18 00:34 Resp 20 01/18/18 00:34 BP 123/87 01/18/18 00:34 Pulse Ox 98 01/18/18 00:34 - Orders/Labs/Meds Orders: Active Orders 24 hr Category Date Time Status Ketorolac [Toradol] Med 01/18/18 00:39 Once 60 mg IM ONETIME ONE Medication Orders Ketorolac Tromethamine (Toradol) 60 mg IM ONETIME ONE Stop: 01/18/18 00:40 Meds: Medications Generic Name Dose Route Start Last Admin Trade Name Citlaly MORALES Reason Stop Dose Admin Ketorolac Tromethamine 60 mg 01/18/18 00:39 Toradol IM 01/18/18 00:40 ONETIME ONE Departure - Departure Time of Disposition: 00:41 Disposition: Home, Self-Care 01 Condition: Good Clinical Impression: Chronic back pain - Discharge Information Additional Instructions: The following information is given to patients seen in the emergency department who are being discharged to home. This information is to outline your options for follow-up care. We provide all patients seen in our emergency department with a follow-up referral. The need for follow-up, as well as the timing and circumstances, are variable depending upon the specifics of your emergency department visit. If you don't have a primary care physician on staff, we will provide you with a referral. We always advise you to contact your personal physician following an emergency department visit to inform them of the circumstance of the visit and for follow-up with them and/or the need for any referrals to a consulting specialist. The emergency department will also refer you to a specialist when appropriate. This referral assures that you have the opportunity for followup care with a specialist. All of these measure are taken in an effort to provide you with optimal care, which includes your followup. Under all circumstances we always encourage you to contact your private physician who remains a resource for coordinating your care. When calling for followup care, please make the office aware that this follow-up is from your recent emergency room visit. If for any reason you are refused follow-up, please contact the [facility] emergency department at and asked to speak to the emergency department charge nurse John is prescribed follow-up primary medical doctor. Return as needed as discussed [] - My Orders Last 24 Hours: My Active Orders 01/18/18 00:39 Ketorolac [Toradol] 60 mg IM ONETIME ONE - Assessment/Plan Last 24 Hours: My Active Orders 01/18/18 00:39 Ketorolac [Toradol] 60 mg IM ONETIME ONE
[2018-01-18 01:14] VITALS: BP 104/68
== END 2018-01-18 01:14 | disposition home or self-care (01) ==
LOC: MW.ED 00:28
DX: G89.29 Other chronic pain (principal); M54.5 Low back pain; Z88.8 Allergy status to other drugs, medicaments and biological substances; Z88.0 Allergy status to penicillin
CPT/HCPCS: 96372; 99283; J1885

== ENCOUNTER 2018-07-28 14:14 | Emergency (ER) | payer MEDICAID ==
[2018-07-28 14:37] VITALS: BP 118/65
[2018-07-28] MEDS ORDERED: methylPREDNISolone Sodium Succinate 125 MG/2 ML SDV IM ONE (15:41)
[2018-07-28] MEDS ORDERED: Ketorolac 60 MG/2 ML SDV IM ONE (15:41)
--- NOTE | 2018-07-28 15:41 | EDM.PDOC ---
ED HPI GENERAL MEDICAL PROBLEM - General Chief Complaint: Lower Extremity Injury/Pain Stated Complaint: PAIN IN LEG AND HIP Time Seen by Provider: 07/28/18 15:37 Source of Information: Reports: Patient History Limitations: Reports: No Limitations - History of Present Illness INITIAL COMMENTS - FREE TEXT/NARRATIVE: HISTORY AND PHYSICAL: History of present illness: Patient is a 38-year-old female who presents to the emergency room with complaints of chronic intermittent left hip pain. She states she does have arthritis and does have flare-ups of joint pain with weather changes.She sees her primary care provider routinely for these issues and was recently referred to a glass inserter. She has had past imaging and reportedly was normal. She has appointment next month for further evaluation and management. Prior she had taken anti-inflammatories, steroids and intra-articular cortisone injections. She denies any fever, chills, chest pain, shortness of breath or cough. Denies any abdominal pain, nausea, vomiting, diarrhea or constipation. She has been eating and drinking appropriately. No recent injury, trauma or falls. Review of systems: As per history of present illness and below otherwise all systems reviewed and negative. Past medical history: As per history of present illness and as reviewed below otherwise noncontributory. Surgical history: As per history of present illness and as reviewed below otherwise noncontributory. Social history: See social history for further information Family history: As per history of present illness and as reviewed below otherwise noncontributory. Physical exam: General: Well-developed and well-nourished 38 she'll female. Alert and oriented. Nontoxic appearing and in no acute distress HEENT: Atraumatic, normocephalic, pupils equal and reactive bilaterally, negative for conjunctival pallor or scleral icterus, mucous membranes moist, TMs normal bilaterally, throat clear, neck supple, nontender, trachea midline. No drooling or trismus noted. No meningeal signs. No hot potato voice noted. Lungs: Clear to auscultation, breath sounds equal bilaterally, chest nontender. Heart: S1S2, regular rate and rhythm without overt murmur Abdomen: Soft, nondistended, nontender. Negative for masses or hepatosplenomegaly. Negative for costovertebral tenderness. Pelvis: Stable nontender. Genitourinary: Deferred. Rectal: Deferred. Skin: Intact, warm, dry. No lesions or rashes noted. Extremities: Atraumatic, moves all extremities per self without difficulty or deficits. She has no bony tenderness when palpating the iliac crest, anterior hip and femur. Negative for cords or calf pain. Neurovascular unremarkable. C-spine/Back: No pinpoint vertebral tenderness upon palpation. No crepitus, step -offs or obvious deformities noted. She is ambulatory into the emergency room with a steady and even gait. Denies any urinary or fecal incontinence. Denies any distal extremity numbness or tingling. Neuro: Awake, alert, oriented. Cranial nerves II through XII unremarkable. Cerebellum unremarkable. Motor and sensory unremarkable throughout. Exam nonfocal. Notes: We discussed potential imaging, she declines. She is agreeable to receiving a Toradol and Solu-Medrol injection. Encouraged her to keep her appointment with her glass inserter a follow-up with her primary care provider in the next few days. She voices understanding and is agreeable to plan of care. Denies any further questions or concerns at this time. Diagnostics: None Therapeutics: Toradol and Solu-Medrol IM Prescription: Diclofenac and Medrol Dosepak Impression: Arthritis Plan: 1. Please take your medications as directed. You may use Tylenol for breakthrough pain. 2. Please keep your appointment with the glass inserter as as you already have arranged. Follow-up with your primary caregiver or the orthopedic provider in the next 1-2 days. Return to the ED as needed and as discussed. Definitive disposition and diagnosis as appropriate pending reevaluation and review of above. Left Hip Pain Score (Numeric/FACES): 4 - Related Data Allergies Allergy/AdvReac Type Severity Reaction Status Date / Time divalproex sodium Allergy Change Verified 07/28/18 14:38 [From Depakote] Mental Status fluoxetine HCl [From Prozac] Allergy Change Verified 07/28/18 14:38 Mental Status gabapentin [From Neurontin] Allergy Change Verified 07/28/18 14:38 Mental Status Penicillins Allergy Difficulty Verified 07/28/18 14:38 Breathing Dtp Shot Allergy Cannot Uncoded 07/28/18 14:38 Remember Home Meds: Home Meds Beta Mini 01/21/17 [History] Past Medical History - Past Health History Medical/Surgical History: Denies Medical/Surgical History HEENT History: Reports: None Cardiovascular History: Reports: Other (See Below) Other Cardiovascular History: palpitations Respiratory History: Reports: None, Other (See Below) Other Respiratory History: Reports sleep apnea, "but not bad enough for a machine" Gastrointestinal History: Reports: None Other Gastrointestinal History: REcent abodminal Pain Genitourinary History: Reports: None 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 Musculoskeletal History: Reports: None, Back Pain, Chronic, Other (See Below) Other Musculoskeletal History: Raynauds Disease Neurological History: Reports: Seizure Psychiatric History: Reports: Anxiety, Depression Endocrine/Metabolic History: Reports: None Other Endocrine/Metabolic History: Have been checking and watching my Thyroid, "vitamin D3 deficit" Hematologic History: Reports: None Immunologic History: Reports: None Oncologic (Cancer) History: Reports: None Dermatologic History: Reports: None, Other (See Below) Other Dermatologic History: Eczema - Infectious Disease History Infectious Disease History: Reports: Chicken Pox - Past Surgical History Head Surgeries/Procedures: Reports: None HEENT Surgical History: Reports: None GI Surgical History: Reports: None Female Surgical History: Reports: Section, Other (See Below) Other Female Surgeries/Procedures: x2 Neurological Surgical History: Reports: None Oncologic Surgical History: Reports: None Social & Family History - Family History Family Medical History: Noncontributory - Tobacco Use Smoking Status *Q: Former Smoker Years of Tobacco use: 15 Packs/Tins Daily: 1 Used Tobacco, but Quit: Yes Month/Year Tobacco Last Used: quit 5 days ago - Caffeine Use Caffeine Use: Reports: Coffee - Recreational Drug Use Recreational Drug Use: No Review of Systems - Review of Systems Review Of Systems: ROS reveals no pertinent complaints other than HPI. ED EXAM, GENERAL - Physical Exam Exam: See Below (See dictation) Course - Vital Signs Last Recorded V/S: Last Vital Signs Temp 98.2 F 07/28/18 14:33 Pulse 95 07/28/18 14:33 Resp 16 07/28/18 14:33 BP 118/65 07/28/18 14:33 Pulse Ox 97 07/28/18 14:33 - Orders/Labs/Meds Meds: Medications Discontinued Medications Generic Name Dose Route Start Last Admin Trade Name Freq PRN Reason Stop Dose Admin Ketorolac Tromethamine 60 mg 07/28/18 15:41 Toradol IM 07/28/18 15:42 ONETIME ONE Methylprednisolone Sodium Succinate 125 mg 07/28/18 15:41 Solu-Medrol IM 07/28/18 15:42 ONETIME ONE Departure - Departure Time of Disposition: 15:51 Disposition: Home, Self-Care 01 Clinical Impression: Arthritis - Discharge Information Instructions: Arthritis, [id number] Referrals: PCP,Unknown [Primary Care Provider] - Forms: ED Department Discharge Additional Instructions: The following information is given to patients seen in the emergency department who are being discharged to home. This information is to outline your options for follow-up care. We provide all patients seen in our emergency department with a follow-up referral. The need for follow-up, as well as the timing and circumstances, are variable depending upon the specifics of your emergency department visit. If you don't have a primary care physician on staff, we will provide you with a referral. We always advise you to contact your personal physician following an emergency department visit to inform them of the circumstance of the visit and for follow-up with them and/or the need for any referrals to a consulting specialist. The emergency department will also refer you to a specialist when appropriate. This referral assures that you have the opportunity for follow-up care with a specialist. All of these measure are taken in an effort to provide you with optimal care, which includes your follow-up. Under all circumstances we always encourage you to contact your private physician who remains a resource for coordinating your care. When calling for follow-up care, please make the office aware that this follow-up is from your recent emergency room visit. If for any reason you are refused follow-up, please contact the [facility] Emergency Department at and asked to speak to the emergency department charge nurse. [facility] [address] [place] [id number] [id number] 1. Please take your medications as directed. You may use Tylenol for breakthrough pain. 2. Please keep your appointment with the glass inserter as as you already have arranged. Follow-up with your primary caregiver or the orthopedic provider in the next 1-2 days. Return to the ED as needed and as discussed.
== END 2018-07-28 16:33 | disposition home or self-care (01) ==
LOC: MW.ED 14:14
DX: M19.90 Unspecified osteoarthritis, unspecified site (principal); Z88.0 Allergy status to penicillin; Z88.7 Allergy status to serum and vaccine; Z88.8 Allergy status to other drugs, medicaments and biological substances; Z87.891 Personal history of nicotine dependence
CPT/HCPCS: 96372; 99283; J1885; J2930

== ENCOUNTER 2018-08-05 17:00 | Emergency (ER) | payer MEDICAID ==
--- NOTE | 2018-08-05 17:14 | EDM.PDOC ---
ED HPI GENERAL MEDICAL PROBLEM - General Chief Complaint: General Stated Complaint: LEFT LEG PAIN AND SWELLING; "SHOCKS" TO BRAIN Time Seen by Provider: 08/05/18 17:05 Source of Information: Reports: Patient History Limitations: Reports: No Limitations - History of Present Illness INITIAL COMMENTS - FREE TEXT/NARRATIVE: HISTORY AND PHYSICAL: History of present illness: Patient is a 38 year old female who presents to the emergency room with complaints of chronic leg pain. She has been seen multiple times by the emergency room, Dr. Solano and neurology for this chronic left leg pain that radiates into her thoracic spine. She states that she intermittently gets put on steroids, anti-inflammatories and pain medication which seems to help alleviate her symptoms but "they always return". She states that she just finished a Medrol Dosepak and has been taking diclofenac but today her symptoms "flared up". She was walking to use the bathroom when she felt she was unable to use her left leg because the pain was so severe. This pain sent "shock waves up to my brain" and states it felt like pulsing electricity. She states this pain is mostly to the thoracic spine and left lower extremity. She denies any headache, change in vision, neck pain, light or noise sensitivity. Reports she is supposed to see a sand filler specialist in [place] but has been canceling her appointments as the pain has been too severe to travel in a vehicle for long periods of time. She denies any new injury, trauma surgery falls. Denies any numbness or tingling to the distal extremities. Review of systems: As per history of present illness and below otherwise all systems reviewed and negative. Past medical history: As per history of present illness and as reviewed below otherwise noncontributory. Surgical history: As per history of present illness and as reviewed below otherwise noncontributory. Social history: See social history for further information Family history: As per history of present illness and as reviewed below otherwise noncontributory. Physical exam: General: Well-developed and well-nourished 38 year old female. Alert and oriented. Nontoxic appearing and in no acute distress. HEENT: Atraumatic, normocephalic, pupils equal and reactive bilaterally, negative for conjunctival pallor or scleral icterus, mucous membranes moist, TMs normal bilaterally, throat clear, neck supple, nontender, trachea midline. No drooling or trismus noted. No meningeal signs. No hot potato voice noted. Lungs: Clear to auscultation, breath sounds equal bilaterally, chest nontender. Heart: S1S2, regular rate and rhythm without overt murmur Abdomen: Soft, nondistended, obese, nontender. Negative for masses. Negative for costovertebral tenderness. Pelvis: Stable nontender. Genitourinary: Deferred. Rectal: Deferred. Skin: Intact, warm, dry. No lesions or rashes noted. Extremities: Atraumatic, moves all extremities per self, negative for cords or calf pain. Neurovascular unremarkable. Neuro: Awake, alert, oriented. Cranial nerves II through XII unremarkable. Cerebellum unremarkable. Motor and sensory unremarkable throughout. Exam nonfocal. Notes: No neurological deficits on physical exam. We discussed doing diagnostics which she declines. She states she has had multiple x-rays, CTs and MRI of the thoracic spine and other extremities. She declines the need for any lab work at this time. I will give her some Toradol while here. We did discuss possibly doing some amitriptyline or Cymbalta through her primary care provider. I encouraged her to follow-up with them within the next few days to discuss further management options. She voices understanding and is agreeable to plan of care. Denies any further questions or concerns at this time. Diagnostics: Declined Therapeutics: Declined Prescription: Ultracet (#20) Impression: Chronic back pain Plan: 1. As we discussed its imperative that you follow-up with the specialist in [place] as you already have arranged. 2. Please Ultracet and use as needed. Continue using the anti-inflammatories you already have available to you. You'll need to follow-up with your primary care provider for further refill and adjustment of this medication as needed. 3. May want to consider physical therapy. 4. Please follow-up with Dr. Solano, your primary care provider in the next few days. Return to the ED as needed and as discussed. Definitive disposition and diagnosis as appropriate pending reevaluation and review of above. Duration: Chronic left leg Pain Score (Numeric/FACES): 8 - Related Data Allergies Allergy/AdvReac Type Severity Reaction Status Date / Time divalproex sodium Allergy Change Verified 08/05/18 17:16 [From Depakote] Mental Status fluoxetine HCl [From Prozac] Allergy Change Verified 08/05/18 17:16 Mental Status gabapentin [From Neurontin] Allergy Change Verified 08/05/18 17:16 Mental Status Penicillins Allergy Difficulty Verified 08/05/18 17:16 Breathing Dtp Shot Allergy Cannot Uncoded 08/05/18 17:16 Remember Home Meds: Home Meds Beta Mini 01/21/17 [History] Anti-Inflamatory Meds 08/05/18 [History] Past Medical History - Past Health History Medical/Surgical History: Denies Medical/Surgical History HEENT History: Reports: None Cardiovascular History: Reports: Other (See Below) Other Cardiovascular History: palpitations Respiratory History: Reports: None, Other (See Below) Other Respiratory History: Reports sleep apnea, "but not bad enough for a machine" Gastrointestinal History: Reports: None Other Gastrointestinal History: REcent abodminal Pain Genitourinary History: Reports: None COPS History: Reports: Other COPS History: cyst on right ovary Musculoskeletal History: Reports: None, Back Pain, Chronic, Other (See Below) Other Musculoskeletal History: Raynauds Disease Neurological History: Reports: Seizure Psychiatric History: Reports: Anxiety, Depression Endocrine/Metabolic History: Reports: None Other Endocrine/Metabolic History: Have been checking and watching my Thyroid, "vitamin D3 deficit" Hematologic History: Reports: None Immunologic History: Reports: None Oncologic (Cancer) History: Reports: None Dermatologic History: Reports: None, Other (See Below) Other Dermatologic History: Eczema - Infectious Disease History Infectious Disease History: Reports: Chicken Pox - Past Surgical History Head Surgeries/Procedures: Reports: None HEENT Surgical History: Reports: None GI Surgical History: Reports: None Female Surgical History: Reports: Section, Other (See Below) Other Female Surgeries/Procedures: x2 Neurological Surgical History: Reports: None Oncologic Surgical History: Reports: None Social & Family History - Family History Family Medical History: Noncontributory - Caffeine Use Caffeine Use: Reports: Coffee ED ROS GENERAL - Review of Systems Review Of Systems: ROS reveals no pertinent complaints other than HPI. ED EXAM, GENERAL - Physical Exam Exam: See Below (See dictation) Course - Vital Signs Last Recorded V/S: Last Vital Signs Temp 97.1 F 08/05/18 17:12 Pulse 113 H 08/05/18 17:12 Resp 20 08/05/18 17:12 BP 134/77 08/05/18 17:12 Pulse Ox 98 08/05/18 17:12 - Orders/Labs/Meds Meds: Medications Discontinued Medications Generic Name Dose Route Start Last Admin Trade Name Citlaly PRN Reason Stop Dose Admin Ketorolac Tromethamine 60 mg 08/05/18 17:35 08/05/18 17:42 Toradol IM 08/05/18 17:36 60 mg ONETIME ONE Administration Departure - Departure Time of Disposition: 17:46 Disposition: Home, Self-Care 01 Clinical Impression: Chronic back pain Qualifiers: Back pain location: thoracic back pain Back pain laterality: left Qualified Code(s): M54.6 - Pain in thoracic spine - Discharge Information Instructions: Chronic Pain, Adult Referrals: Elaine Solano MD [Primary Care Provider] - Forms: ED Department Discharge Additional Instructions: The following information is given to patients seen in the emergency department who are being discharged to home. This information is to outline your options for follow-up care. We provide all patients seen in our emergency department with a follow-up referral. The need for follow-up, as well as the timing and circumstances, are variable depending upon the specifics of your emergency department visit. If you don't have a primary care physician on staff, we will provide you with a referral. We always advise you to contact your personal physician following an emergency department visit to inform them of the circumstance of the visit and for follow-up with them and/or the need for any referrals to a consulting specialist. The emergency department will also refer you to a specialist when appropriate. This referral assures that you have the opportunity for follow-up care with a specialist. All of these measure are taken in an effort to provide you with optimal care, which includes your follow-up. Under all circumstances we always encourage you to contact your private physician who remains a resource for coordinating your care. When calling for follow-up care, please make the office aware that this follow-up is from your recent emergency room visit. If for any reason you are refused follow-up, please contact the [facility] Emergency Department at and asked to speak to the emergency department charge nurse. [facility] [address] [place] [id number] [facility] [address] [place] [address] 1. As we discussed its imperative that you follow-up with the specialist in [place] as you already have arranged. 2. Please Ultracet and use as needed. Continue using the anti-inflammatories you already have available to you. You'll need to follow-up with your primary care provider for further refill and adjustment of this medication as needed. 3. May want to consider physical therapy. 4. Please follow-up with Dr. Solano, your primary care provider in the next few days. Return to the ED as needed and as discussed.
[2018-08-05] MEDS ORDERED: Ketorolac 60 MG/2 ML SDV IM ONE (17:35)
[2018-08-05 18:11] VITALS: BP 122/56
== END 2018-08-05 18:11 | disposition home or self-care (01) ==
LOC: MW.ED 17:00
DX: G89.29 Other chronic pain (principal); M54.6 Pain in thoracic spine; Z88.8 Allergy status to other drugs, medicaments and biological substances; Z88.0 Allergy status to penicillin; Z79.899 Other long term (current) drug therapy
CPT/HCPCS: 96372; 99283; J1885

== ENCOUNTER 2018-08-19 23:38 | Emergency (ER) | payer MEDICAID ==
--- NOTE | 2018-08-20 00:23 | EDM.PDOC ---
ED HPI GENERAL MEDICAL PROBLEM - General Chief Complaint: Back Pain or Injury Stated Complaint: PT HAS BACK PAINS Time Seen by Provider: 08/20/18 00:08 - History of Present Illness INITIAL COMMENTS - FREE TEXT/NARRATIVE: HISTORY AND PHYSICAL: History of present illness: The patient is a 38 y/o female who has had back and hip pain since May and is following with Dr. Solano in the clinic and has 3 different medications for pain that she is taking and presents via EMS for exacerbation of the same pain. 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 She had no bowel or bladder disturbances and she says the pain is exactly the same as she has had before. She tells me that she stopped taking the medications that the provider gave her a few days ago but she did not think that they were working and she has not contacted the parts data writer to discuss options and further treatment plans. She arrives via EMS and received Zofran in route as well as 100 g of fentanyl. Here she is drowsy but is able to answer questions and provide information. Review of systems: As per history of present illness and below otherwise all systems reviewed and negative. Past medical history: As per history of present illness and as reviewed below otherwise noncontributory. Surgical history: As per history of present illness and as reviewed below otherwise noncontributory. Social history: No reported history of drug or alcohol abuse. Family history: As per history of present illness and as reviewed below otherwise noncontributory. Physical exam: General: Well-developed well-nourished overweight female who is in the recliner in the ED and sound asleep. Vital signs are noted by me and they are normal. HEENT: Atraumatic, normocephalic, negative for conjunctival pallor or scleral icterus, mucous membranes moist, throat clear, neck supple, nontender, trachea midline. Lungs: Clear to auscultation, breath sounds equal bilaterally, chest nontender. No work of breathing Heart: S1S2, regular, negative for clicks, rubs, or JVD. Abdomen: Soft, nondistended, nontender. Negative for masses or hepatosplenomegaly. NABS Pelvis: Stable nontender. Genitourinary: Deferred. Rectal: Deferred. Extremities: Atraumatic, negative for cords or calf pain. Neurovascular unremarkable. Neuro: Awake, alert, oriented. Cranial nerves II through XII unremarkable. Cerebellum unremarkable. Motor and sensory unremarkable throughout. Exam nonfocal. Diagnostics: [] Therapeutics: Discussed with the patient that she is very drowsy and very relaxed on the medications given to her by EMS and that we would not do any more medications. I also discussed with her further evaluation and care and she says at this point she would like to go home and go to sleep and follow-up with her provider in the clinic as she did not have any trauma and doesn't need x-rays and she has no other systemic complaints. I strongly advised her to call her provider in the clinic in the morning to discuss her pain medication and adjust her regimen as needed. We will help her contact a ride Impression: Back and hip pain acute on chronic Definitive disposition and diagnosis as appropriate pending reevaluation and review of above. Treatments EXERCISE INSTRUCT: Reports: IV/IO back pain Pain Score (Numeric/FACES): 2 - Related Data Allergies Allergy/AdvReac Type Severity Reaction Status Date / Time divalproex sodium Allergy Change Verified 08/19/18 23:41 [From Depakote] Mental Status fluoxetine HCl [From Prozac] Allergy Change Verified 08/19/18 23:41 Mental Status gabapentin [From Neurontin] Allergy Change Verified 08/19/18 23:41 Mental Status Penicillins Allergy Difficulty Verified 08/19/18 23:41 Breathing Dtp Shot Allergy Cannot Uncoded 08/19/18 23:41 Remember Home Meds: Home Meds Beta Mini 01/21/17 [History] Anti-Inflamatory Meds 08/05/18 [History] Past Medical History - Past Health History Medical/Surgical History: Denies Medical/Surgical History HEENT History: Reports: None Cardiovascular History: Reports: Other (See Below) Other Cardiovascular History: palpitations Respiratory History: Reports: None, Other (See Below) Other Respiratory History: Reports sleep apnea, "but not bad enough for a machine" Gastrointestinal History: Reports: None Other Gastrointestinal History: REcent abodminal Pain Genitourinary History: Reports: None 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 on right ovary Musculoskeletal History: Reports: None, Back Pain, Chronic, Other (See Below) Other Musculoskeletal History: Raynauds Disease Neurological History: Reports: Seizure Psychiatric History: Reports: Anxiety, Depression Endocrine/Metabolic History: Reports: None Other Endocrine/Metabolic History: Have been checking and watching my Thyroid, "vitamin D3 deficit" Hematologic History: Reports: None Immunologic History: Reports: None Oncologic (Cancer) History: Reports: None Dermatologic History: Reports: None, Other (See Below) Other Dermatologic History: Eczema - Infectious Disease History Infectious Disease History: Reports: Chicken Pox - Past Surgical History Head Surgeries/Procedures: Reports: None HEENT Surgical History: Reports: None GI Surgical History: Reports: None Female Surgical History: Reports: Section, Other (See Below) Other Female Surgeries/Procedures: x2 Neurological Surgical History: Reports: None Oncologic Surgical History: Reports: None Social & Family History - Family History Family Medical History: Noncontributory - Tobacco Use Smoking Status *Q: Current Every Day Smoker Years of Tobacco use: 15 Packs/Tins Daily: 1 - Caffeine Use Caffeine Use: Reports: Coffee, Soda - Recreational Drug Use Recreational Drug Use: No ED ROS GENERAL - Review of Systems Review Of Systems: ROS reveals no pertinent complaints other than HPI. ED EXAM, GENERAL - Physical Exam Exam: See Below (See dictation) Course - Vital Signs Last Recorded V/S: Last Vital Signs Temp 36.6 C 08/19/18 23:40 Pulse 112 H 08/19/18 23:40 Resp 18 08/19/18 23:40 BP 132/75 08/19/18 23:40 Pulse Ox 97 08/19/18 23:40 Departure - Departure Time of Disposition: 00:25 Disposition: Home, Self-Care 01 Condition: Good Clinical Impression: Acute exacerbation of chronic low back pain - Discharge Information Forms: ED Department Discharge Additional Instructions: The following information is given to patients seen in the emergency department who are being discharged to home. This information is to outline your options for follow-up care. We provide all patients seen in our emergency department with a follow-up referral. The need for follow-up, as well as the timing and circumstances, are variable depending upon the specifics of your emergency department visit. If you don't have a primary care physician on staff, we will provide you with a referral. We always advise you to contact your personal physician following an emergency department visit to inform them of the circumstance of the visit and for follow-up with them and/or the need for any referrals to a consulting specialist. The emergency department will also refer you to a specialist when appropriate. This referral assures that you have the opportunity for followup care with a specialist. All of these measure are taken in an effort to provide you with optimal care, which includes your followup. Under all circumstances we always encourage you to contact your private physician who remains a resource for coordinating your care. When calling for followup care, please make the office aware that this follow-up is from your recent emergency room visit. If for any reason you are refused follow-up, please contact the [facility] emergency department at and ask to speak to the emergency department charge nurse. [facility] Primary care- Internal Medicine and Family [address] [id number] Please contact your provider in the clinic this morning and discuss tonight ER visit as well as future care options. Return to ER as needed and as discussed
[2018-08-20 04:59] VITALS: BP 115/55
== END 2018-08-20 00:50 | disposition home or self-care (01) ==
LOC: MW.ED 23:38
DX: M54.5 Low back pain (principal); G89.29 Other chronic pain; M25.559 Pain in unspecified hip; F17.210 Nicotine dependence, cigarettes, uncomplicated; Z88.0 Allergy status to penicillin; Z88.7 Allergy status to serum and vaccine; Z88.8 Allergy status to other drugs, medicaments and biological substances
CPT/HCPCS: 99283; 99284

== ENCOUNTER 2018-08-24 02:06 | Emergency (ER) | payer MEDICAID ==
--- NOTE | 2018-08-24 02:47 | EDM.PDOC ---
ED HPI GENERAL MEDICAL PROBLEM - General Chief Complaint: General Stated Complaint: pain everywhere Time Seen by Provider: 08/24/18 02:46 Source of Information: Reports: Patient - History of Present Illness INITIAL COMMENTS - FREE TEXT/NARRATIVE: HISTORY AND PHYSICAL: History of present illness: [Patient presents with headache tonight frontal again 30 minutes prior] to arrival, she describes light sensitivity photophobia and nausea no vomiting no chills sweats no fever She also complains of intermittent hip and knee pain which is not active at current Her primary care Dr. Solano is had her on 3 different medications, she states she does not know what the medication is, however, she stopped them 3 days prior to arrival She states she "wants tests " She has negative KAYLEN and rheumatoid factor file After extended ER stay patient was in room to did listen to her and her daughter talking and laughing watching TV no pain behavior, after entering the room and discussing the patient is symptoms/headache had resolved shortly thereafter she started to complain of migraine again although pain is now rated as 0 out of 10 prior was a 10 out of 10. Also of note patient had not taken her medications over the last 3 days, she feels they have not been working, however she has been in the ER twice for pain in the last 3 days and has not had many ER visits prior Review of systems: As per history of present illness and below otherwise all systems reviewed and negative. Past medical history: As per history of present illness and as reviewed below otherwise noncontributory. Surgical history: As per history of present illness and as reviewed below otherwise noncontributory. Social history: No reported history of drug or alcohol abuse. Family history: As per history of present illness and as reviewed below otherwise noncontributory. Physical exam: HEENT: Atraumatic, normocephalic, pupils reactive, negative for conjunctival pallor or scleral icterus, mucous membranes moist, throat clear, neck supple, nontender, trachea midline. Lungs: Clear to auscultation, breath sounds equal bilaterally, chest nontender. Heart: S1S2, regular, negative for clicks, rubs, or JVD. Abdomen: Soft, nondistended, nontender. Negative for masses or hepatosplenomegaly. Negative for costovertebral tenderness. Pelvis: Stable nontender. Genitourinary: Deferred. Rectal: Deferred. Extremities: Atraumatic, negative for cords or calf pain. Neurovascular unremarkable. Neuro: Awake, alert, oriented. Cranial nerves II through XII unremarkable. Cerebellum unremarkable. Motor and sensory unremarkable throughout. Exam nonfocal. Diagnostics: see lab from previous on file Head CT no contrast ] Therapeutics: [Renal saline Zofran Toradol ] Impression: [ headache-resolved chronic pain Cannot rule out psychosomatic source ] Definitive disposition and diagnosis as appropriate pending reevaluation and review of above. low back;hips;knees Pain Score (Numeric/FACES): 8 - Related Data Allergies Allergy/AdvReac Type Severity Reaction Status Date / Time divalproex sodium Allergy Change Verified 08/24/18 02:20 [From Depakote] Mental Status fluoxetine HCl [From Prozac] Allergy Change Verified 08/24/18 02:20 Mental Status gabapentin [From Neurontin] Allergy Change Verified 08/24/18 02:20 Mental Status Penicillins Allergy Difficulty Verified 08/24/18 02:20 Breathing Dtp Shot Allergy Cannot Uncoded 08/24/18 02:20 Remember Home Meds: Home Meds Beta Mini 01/21/17 [History] Anti-Inflamatory Meds 08/05/18 [History] Past Medical History - Past Health History Medical/Surgical History: Denies Medical/Surgical History HEENT History: Reports: None Cardiovascular History: Reports: Other (See Below) Other Cardiovascular History: palpitations Respiratory History: Reports: Other (See Below) Other Respiratory History: Reports sleep apnea, "but not bad enough for a machine" Gastrointestinal History: Reports: None Other Gastrointestinal History: REcent abodminal Pain Genitourinary History: Reports: None 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: cyst on right ovary Musculoskeletal History: Reports: Back Pain, Chronic, Other (See Below) Other Musculoskeletal History: Raynauds Disease Neurological History: Reports: Seizure Psychiatric History: Reports: Anxiety, Depression Endocrine/Metabolic History: Reports: None Other Endocrine/Metabolic History: Have been checking and watching my Thyroid, "vitamin D3 deficit" Hematologic History: Reports: None Immunologic History: Reports: None Oncologic (Cancer) History: Reports: None Dermatologic History: Reports: Other (See Below) Other Dermatologic History: Eczema - Infectious Disease History Infectious Disease History: Reports: Chicken Pox - Past Surgical History Head Surgeries/Procedures: Reports: None HEENT Surgical History: Reports: None GI Surgical History: Reports: None Female Surgical History: Reports: Section, Other (See Below) Other Female Surgeries/Procedures: x2 Neurological Surgical History: Reports: None Oncologic Surgical History: Reports: None Social & Family History - Family History Family Medical History: Noncontributory - Tobacco Use Smoking Status *Q: Current Every Day Smoker Years of Tobacco use: 15 Packs/Tins Daily: 1 - Caffeine Use Caffeine Use: Reports: Coffee - Recreational Drug Use Recreational Drug Use: No ED ROS GENERAL - Review of Systems Review Of Systems: See Below ED EXAM, GENERAL - Physical Exam Exam: See Below Course - Vital Signs Last Recorded V/S: Last Vital Signs Temp 96.5 F 08/24/18 02:10 Pulse 96 08/24/18 04:07 Resp 18 08/24/18 04:07 BP 109/65 08/24/18 04:07 Pulse Ox 97 08/24/18 04:07 - Orders/Labs/Meds Meds: Medications Discontinued Medications Generic Name Dose Route Start Last Admin Trade Name Citlaly PRN Reason Stop Dose Admin Sodium Chloride 1,000 mls @ 999 mls/hr 08/24/18 03:03 08/24/18 03:23 Normal Saline IV 08/24/18 04:03 999 mls/hr STAT ONE Administration Ketorolac Tromethamine 30 mg 08/24/18 03:03 08/24/18 03:25 Toradol IVPUSH 08/24/18 03:04 30 mg ONETIME ONE Administration Ondansetron HCl 8 mg 08/24/18 03:03 08/24/18 03:24 Zofran IVPUSH 08/24/18 03:04 8 mg ONETIME ONE Administration Departure - Departure Time of Disposition: 04:20 Disposition: Home, Self-Care 01 Condition: Good Clinical Impression: Headache - Discharge Information Referrals: Elaine Solano MD [Primary Care Provider] - Forms: ED Department Discharge Additional Instructions: The following information is given to patients seen in the emergency department who are being discharged to home. This information is to outline your options for follow-up care. We provide all patients seen in our emergency department with a follow-up referral. The need for follow-up, as well as the timing and circumstances, are variable depending upon the specifics of your emergency department visit. If you don't have a primary care physician on staff, we will provide you with a referral. We always advise you to contact your personal physician following an emergency department visit to inform them of the circumstance of the visit and for follow-up with them and/or the need for any referrals to a consulting specialist. The emergency department will also refer you to a specialist when appropriate. This referral assures that you have the opportunity for follow-up care with a specialist. All of these measure are taken in an effort to provide you with optimal care, which includes your follow-up. Under all circumstances we always encourage you to contact your private physician who remains a resource for coordinating your care. When calling for follow-up care, please make the office aware that this follow-up is from your recent emergency room visit. If for any reason you are refused follow-up, please contact the [facility] emergency department at and asked to speak to the emergency department charge nurse.
[2018-08-24] MEDS ORDERED: Ketorolac 30 MG/ML SDV IVPUSH ONE (03:03)
[2018-08-24] MEDS ORDERED: Ondansetron 4 MG/2 ML SDV IVPUSH ONE (03:03)
[2018-08-24] MEDS ORDERED: Sodium Chloride 0.9% 1,000 ML IV ONE (03:03)
--- NOTE | 2018-08-24 04:08 | CT ---
INDICATION: Headache TECHNIQUE: CT Head without i.v. contrast. COMPARISON: None FINDINGS: CSF space: The ventricles are normal for age. Brain: No evidence of mass, acute infarction or hemorrhage is seen. No mass-effect or midline shift is seen. The brain parenchyma is otherwise normal in appearance with preservation of the vega-white matter junction. Calvarium: The visualized paranasal sinuses are well aerated. The mastoid air cells are clear. The visualized orbits are grossly unremarkable. The calvarium is unremarkable in appearance with no fractures identified. IMPRESSION: 1. No evidence of acute infarction, intracranial hemorrhage, or mass-effect seen. Please note that all CT scans at this facility use dose modulation, iterative reconstruction, and/or weight-based dosing when appropriate to reduce radiation dose to as low as reasonably achievable. Dictated by: Floyd Don MD @ 08/24/2018 04:06:17 (Electronically Signed)
[2018-08-24 04:10] VITALS: BP 109/65
== END 2018-08-24 04:30 | disposition home or self-care (01) ==
LOC: MW.ED 02:06
DX: R51 Headache (principal); F17.210 Nicotine dependence, cigarettes, uncomplicated; Z88.8 Allergy status to other drugs, medicaments and biological substances; Z88.0 Allergy status to penicillin
CPT/HCPCS: 70450; 96361; 96374; 96375; 99284; J1885; J2405; J7040; 99283

== ENCOUNTER 2018-12-03 02:14 | Emergency (ER) | payer SELFPAY ==
[2018-12-03] MEDS ORDERED: Ondansetron 4 MG/2 ML SDV ONE (02:28)
[2018-12-03] MEDS ORDERED: Ketorolac 30 MG/ML SDV ONE (02:28)
[2018-12-03 07:45] LABS: CHLORIDE,CL 104 mmol/L (98-107); SODIUM,NA 140 mmol/L (136-145)
--- NOTE | 2018-12-03 17:19 | CT ---
EXAM DATE: 12/03/18 PATIENT'S AGE: 38 Patient: KULWANT BOWEN Facility: [facility] Site : 1980 Study: CT-Abdomen/Pelvis w/o-12/03/2018 4:16:06 AM Ordering Physician: Valeria Final Report: INDICATION: Right lower quadrant pain TECHNIQUE: CT Abdomen and pelvis without i.v. contrast. Coronal and sagittal reformats were obtained. COMPARISON: None FINDINGS: Lower chest: Unremarkable. Liver: Moderate diffuse fatty infiltration of the liver is present with focal fatty sparing near the gallbladder fossa. Spleen: Unremarkable. Pancreas: Unremarkable. Gallbladder: Unremarkable. Kidney: Unremarkable. No kidney or ureteral stones or obstruction seen. Adrenal: Unremarkable. Bowel: There are areas of segmental narrowing present in the rectosigmoid colon , likely due to peristalsis. The appendix is normal in appearance and size. Vascular: Unremarkable. Lymph: Several ileocolic lymph nodes are present measuring up to 1.3 cm. Peritoneum: Unremarkable. No pneumoperitoneum is seen. No significant ascites is noted. Pelvis: Unremarkable. Soft tissue: Unremarkable. Bone: Unremarkable for age. IMPRESSION: 1. Several ileocolic lymph nodes are present measuring up to 1.3 cm. Clinical correlation is recommended to exclude mesenteric adenitis. Dictated by Floyd Don MD @ 12/03/2018 4:41:39 AM Please note that all CT scans at this facility use dose modulation, iterative reconstruction, and/or weight-based dosing when appropriate to reduce radiation dose to as low as reasonably achievable. Dictated by: Floyd Don MD @ 12/03/2018 04:41:45 Signed by: Floyd Don MD @12/03/2018 4:41:45 AM (Electronic Signature) Report Signed by Proxy. [facility]
[2018-12-03 21:30] VITALS: BP 127/63
== END 2018-12-03 05:15 | disposition home or self-care (01) ==
LOC: MW.ED 02:14
DX: K52.9 Noninfective gastroenteritis and colitis, unspecified (principal); I88.0 Nonspecific mesenteric lymphadenitis
CPT/HCPCS: 36415; 74176; 74176-26; 80053; 81001; 83690; 84703; 85025; 96360; 96374; 99284; 99284-25

== ENCOUNTER 2019-01-06 20:26 | Emergency (ER) | payer SELFPAY ==
[2019-01-06] MEDS ORDERED: Sodium Chloride 0.9% 1,000 ML IV ONE (20:41)
[2019-01-06] MEDS ORDERED: Ondansetron 4 MG/2 ML SDV IVPUSH ONE (20:41)
--- NOTE | 2019-01-06 20:42 | EDM.PDOC ---
ED HPI GENERAL MEDICAL PROBLEM - General Chief Complaint: Abdominal Pain Stated Complaint: BACK AND LEG PAIN Time Seen by Provider: 01/06/19 20:42 Source of Information: Reports: Patient - History of Present Illness INITIAL COMMENTS - FREE TEXT/NARRATIVE: HISTORY AND PHYSICAL: History of present illness: [Patient presents with abdominal pain right sided 8 out of 10 nonradiating increasing in severity, recent diagnosis of mesenteric adenitis There seems to be a food association the patient is changing her diet due to the discomfort/pain no fever nausea vomiting chills sweats no chest pain shortness breath headache dizziness palpitation no urine symptoms] Review of systems: As per history of present illness and below otherwise all systems reviewed and negative. Past medical history: As per history of present illness and as reviewed below otherwise noncontributory. Surgical history: As per history of present illness and as reviewed below otherwise noncontributory. Social history: No reported history of drug or alcohol abuse. Family history: As per history of present illness and as reviewed below otherwise noncontributory. Physical exam: HEENT: Atraumatic, normocephalic, pupils reactive, negative for conjunctival pallor or scleral icterus, mucous membranes moist, throat clear, neck supple, nontender, trachea midline. Lungs: Clear to auscultation, breath sounds equal bilaterally, chest nontender. Heart: S1S2, regular, negative for clicks, rubs, or JVD. Abdomen: Soft, nondistended, nontender. Negative for masses or hepatosplenomegaly. Negative for costovertebral tenderness. Pelvis: Stable nontender. Genitourinary: Deferred. Rectal: Deferred. Extremities: Atraumatic, negative for cords or calf pain. Neurovascular unremarkable. Neuro: Awake, alert, oriented. Cranial nerves II through XII unremarkable. Cerebellum unremarkable. Motor and sensory unremarkable throughout. Exam nonfocal. Diagnostics: [CBC CMP UA hCG lipase CT abdomen pelvis with and without contrast ] Therapeutics: [Normal saline Toradol Zofran ] Impression: [ abdominal pain -resolved] Definitive disposition and diagnosis as appropriate pending reevaluation and review of above. Right Lower Abdominal Pain Score (Numeric/FACES): 8 - Related Data Allergies Allergy/AdvReac Type Severity Reaction Status Date / Time divalproex sodium Allergy Change Verified 01/06/19 20:39 [From Depakote] Mental Status fluoxetine HCl [From Prozac] Allergy Change Verified 01/06/19 20:39 Mental Status gabapentin [From Neurontin] Allergy Change Verified 01/06/19 20:39 Mental Status Penicillins Allergy Difficulty Verified 01/06/19 20:39 Breathing Dtp Shot Allergy Cannot Uncoded 01/06/19 20:39 Remember Home Meds: Home Meds Beta Mini 01/21/17 [History] Anti-Inflamatory Meds 08/05/18 [History] Past Medical History - Past Health History Medical/Surgical History: Denies Medical/Surgical History HEENT History: Reports: None Cardiovascular History: Reports: Other (See Below) Other Cardiovascular History: palpitations Respiratory History: Reports: Other (See Below) Other Respiratory History: Reports sleep apnea, "but not bad enough for a machine" Gastrointestinal History: Reports: None Other Gastrointestinal History: REcent abodminal Pain Genitourinary History: Reports: None 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: cyst on right ovary Musculoskeletal History: Reports: Back Pain, Chronic, Other (See Below) Other Musculoskeletal History: Raynauds Disease Neurological History: Reports: Seizure Psychiatric History: Reports: Anxiety, Depression Endocrine/Metabolic History: Reports: None Other Endocrine/Metabolic History: Have been checking and watching my Thyroid, "vitamin D3 deficit" Hematologic History: Reports: None Immunologic History: Reports: None Oncologic (Cancer) History: Reports: None Dermatologic History: Reports: Other (See Below) Other Dermatologic History: Eczema - Infectious Disease History Infectious Disease History: Reports: Chicken Pox - Past Surgical History Head Surgeries/Procedures: Reports: None HEENT Surgical History: Reports: None GI Surgical History: Reports: None Female Surgical History: Reports: Section, Other (See Below) Other Female Surgeries/Procedures: x2 Neurological Surgical History: Reports: None Oncologic Surgical History: Reports: None Social & Family History - Family History Family Medical History: Noncontributory - Caffeine Use Caffeine Use: Reports: Coffee ED ROS GENERAL - Review of Systems Review Of Systems: See Below ED EXAM, GENERAL - Physical Exam Exam: See Below Course - Vital Signs Last Recorded V/S: Last Vital Signs Temp 96.6 F 01/06/19 22:56 Pulse 82 01/06/19 22:56 Resp 14 01/06/19 22:56 BP 125/81 01/06/19 22:56 Pulse Ox 98 01/06/19 22:56 - Orders/Labs/Meds Labs: Laboratory Tests 01/06/19 01/06/19 01/06/19 Range/Units 20:50 20:50 20:50 WBC 12.96 H (4.0-11.0) K/uL RBC 4.48 (4.30-5.90) M/uL Hgb 13.2 (12.0-16.0) g/dL Hct 39.2 (36.0-46.0) % MCV 87.5 (80.0-98.0) fL MCH 29.5 (27.0-32.0) pg MCHC 33.7 (31.0-37.0) g/dL RDW Std Deviation 43.5 (28.0-62.0) fl RDW Coeff of Arpit 14 (11.0-15.0) % Plt Count 442 H (150-400) K/uL MPV 10.40 (7.40-12.00) fL Neut % (Auto) 61.5 (48.0-80.0) % Lymph % (Auto) 28.5 (16.0-40.0) % Coffey % (Auto) 7.3 (0.0-15.0) % Eos % (Auto) 2.4 (0.0-7.0) % Baso % (Auto) 0.3 (0.0-1.5) % Neut # (Auto) 8.0 H (1.4-5.7) K/uL Lymph # (Auto) 3.7 H (0.6-2.4) K/uL Coffey # (Auto) 0.9 H (0.0-0.8) K/uL Eos # (Auto) 0.3 (0.0-0.7) K/uL Baso # (Auto) 0.0 (0.0-0.1) K/uL Nucleated RBC % 0.0 /100WBC Nucleated RBCs # 0 K/uL Sodium (136-145) mmol/L Potassium (3.5-5.1) mmol/L Chloride (98-107) mmol/L Carbon Dioxide (21.0-32.0) mmol/L BUN (7.0-18.0) mg/dL Creatinine (0.6-1.0) mg/dL Est Cr Clr Drug Dosing mL/min Estimated GFR (MDRD) ml/min Glucose (74-106) mg/dL Calcium (8.5-10.1) mg/dL Total Bilirubin (0.2-1.0) mg/dL AST (15-37) IU/L ALT (14-63) IU/L Alkaline Phosphatase (46-116) U/L Total Protein (6.4-8.2) g/dL Albumin (3.4-5.0) g/dL Globulin (2.6-4.0) g/dL Albumin/Globulin Ratio (0.9-1.6) Lipase (73-393) U/L Urine Color YELLOW Urine Appearance CLEAR Urine pH 5.0 (5.0-8.0) Ur Specific Wilson >= 1.030 (1.001-1.035) Urine Protein NEGATIVE (NEGATIVE) mg/dL Urine Glucose (UA) NEGATIVE (NEGATIVE) mg/dL Urine Ketones NEGATIVE (NEGATIVE) mg/dL Urine Occult Blood SMALL H (NEGATIVE) Urine Nitrite NEGATIVE (NEGATIVE) Urine Bilirubin NEGATIVE (NEGATIVE) Urine Urobilinogen 0.2 (<2.0) EU/dL Ur Leukocyte Esterase NEGATIVE (NEGATIVE) Urine RBC 1-3 (0-2/HPF) Urine WBC 0-2 (0-5/HPF) Ur Epithelial Cells FEW (NONE-FEW) Urine Bacteria RARE (NEGATIVE) Urine HCG, Qual NEGATIVE (NEGATIVE) 01/06/19 Range/Units 20:50 WBC (4.0-11.0) K/uL RBC (4.30-5.90) M/uL Hgb (12.0-16.0) g/dL Hct (36.0-46.0) % MCV (80.0-98.0) fL MCH (27.0-32.0) pg MCHC (31.0-37.0) g/dL RDW Std Deviation (28.0-62.0) fl RDW Coeff of Arpit (11.0-15.0) % Plt Count (150-400) K/uL MPV (7.40-12.00) fL Neut % (Auto) (48.0-80.0) % Lymph % (Auto) (16.0-40.0) % Coffey % (Auto) (0.0-15.0) % Eos % (Auto) (0.0-7.0) % Baso % (Auto) (0.0-1.5) % Neut # (Auto) (1.4-5.7) K/uL Lymph # (Auto) (0.6-2.4) K/uL Coffey # (Auto) (0.0-0.8) K/uL Eos # (Auto) (0.0-0.7) K/uL Baso # (Auto) (0.0-0.1) K/uL Nucleated RBC % /100WBC Nucleated RBCs # K/uL Sodium 142 (136-145) mmol/L Potassium 4.4 (3.5-5.1) mmol/L Chloride 108 H (98-107) mmol/L Carbon Dioxide 23.1 (21.0-32.0) mmol/L BUN 14 (7.0-18.0) mg/dL Creatinine 0.8 (0.6-1.0) mg/dL Est Cr Clr Drug Dosing 91.01 mL/min Estimated GFR (MDRD) > 60.0 ml/min Glucose 106 (74-106) mg/dL Calcium 9.3 (8.5-10.1) mg/dL Total Bilirubin 0.2 (0.2-1.0) mg/dL AST 18 (15-37) IU/L ALT 26 (14-63) IU/L Alkaline Phosphatase 48 (46-116) U/L Total Protein 7.6 (6.4-8.2) g/dL Albumin 3.8 (3.4-5.0) g/dL Globulin 3.8 (2.6-4.0) g/dL Albumin/Globulin Ratio 1.0 (0.9-1.6) Lipase 268 (73-393) U/L Urine Color Urine Appearance Urine pH (5.0-8.0) Ur Specific Wilson (1.001-1.035) Urine Protein (NEGATIVE) mg/dL Urine Glucose (UA) (NEGATIVE) mg/dL Urine Ketones (NEGATIVE) mg/dL Urine Occult Blood (NEGATIVE) Urine Nitrite (NEGATIVE) Urine Bilirubin (NEGATIVE) Urine Urobilinogen (<2.0) EU/dL Ur Leukocyte Esterase (NEGATIVE) Urine RBC (0-2/HPF) Urine WBC (0-5/HPF) Ur Epithelial Cells (NONE-FEW) Urine Bacteria (NEGATIVE) Urine HCG, Qual (NEGATIVE) Meds: Medications Discontinued Medications Generic Name Dose Route Start Last Admin Trade Name Citlaly PRN Reason Stop Dose Admin Sodium Chloride 1,000 mls @ 999 mls/hr 01/06/19 20:41 01/06/19 21:14 Normal Saline IV 01/06/19 21:41 999 mls/hr STAT ONE Administration Iopamidol 100 ml 01/06/19 21:44 01/06/19 21:45 Isovue Multipack-370 (76%) IVPUSH 01/06/19 21:45 100 ml ONETIME ONE Administration Ketorolac Tromethamine 30 mg 01/06/19 21:37 01/06/19 22:08 Toradol IVPUSH 01/06/19 21:38 30 mg ONETIME ONE Administration Ondansetron HCl 8 mg 01/06/19 20:41 01/06/19 21:14 Zofran IVPUSH 01/06/19 20:42 8 mg ONETIME ONE Administration Departure - Departure Time of Disposition: 23:20 Disposition: Home, Self-Care 01 Condition: Good Clinical Impression: Abdominal pain - Discharge Information Referrals: PCP,None [Primary Care Provider] - Forms: ED Department Discharge Additional Instructions: Follow-up with primary care as scheduled consider ultrasound right upper quadrant to rule out gallbladder involvement HIDA scan would also be a consideration all with your primary care in [facility] as discussed Return if symptoms persist or worsen The following information is given to patients seen in the emergency department who are being discharged to home. This information is to outline your options for follow-up care. We provide all patients seen in our emergency department with a follow-up referral. The need for follow-up, as well as the timing and circumstances, are variable depending upon the specifics of your emergency department visit. If you don't have a primary care physician on staff, we will provide you with a referral. We always advise you to contact your personal physician following an emergency department visit to inform them of the circumstance of the visit and for follow-up with them and/or the need for any referrals to a consulting specialist. The emergency department will also refer you to a specialist when appropriate. This referral assures that you have the opportunity for follow-up care with a specialist. All of these measure are taken in an effort to provide you with optimal care, which includes your follow-up. Under all circumstances we always encourage you to contact your private physician who remains a resource for coordinating your care. When calling for follow-up care, please make the office aware that this follow-up is from your recent emergency room visit. If for any reason you are refused follow-up, please contact the [facility] emergency department at and asked to speak to the emergency department charge nurse.
[2019-01-06 21:24] LABS: CHLORIDE,CL 108 mmol/L (98-107); SODIUM,NA 142 mmol/L (136-145)
[2019-01-06] MEDS ORDERED: Ketorolac 30 MG/ML SDV IVPUSH ONE (21:37)
[2019-01-06] MEDS ORDERED: Iopamidol 755 MG/ML 500 ML Multipack Bottle IVPUSH ONE (21:44)
--- NOTE | 2019-01-06 23:04 | CT ---
INDICATION: Left-sided abdominal pain. TECHNIQUE: Noncontrast and post contrast axial images of the abdomen pelvis with sagittal and coronal reconstructions. COMPARISON: 12/03/2018. FINDINGS: Lower chest: Normal heart size. No pericardial effusion. Lung bases are clear. Abdomen and pelvis: Fatty liver. No appreciable intrahepatic lesions. Benign calcifications are seen in the normal sized spleen. Pancreas appears unremarkable. No calcified stones are seen in the gallbladder. No bile duct dilatation. Adrenal glands are normal. Small nonobstructing stone superior pole of the left kidney is unchanged. No obstructing urinary tract stones or hydroureteronephrosis. Subtle area of slightly decreased parenchymal attenuation is seen in the midportion of the left kidney posteriorly no perinephric fat stranding. Normal caliber abdominal aorta. There is no abnormally dilated bowel to suggest obstruction. Normal appendix. No free air. No free fluid. No lymphadenopathy by size criteria. Unremarkable urinary bladder. Uterus is present. No suspicious adnexal mass. Bones: Degenerative changes are seen in the spine, and both sacroiliac joints and hips, left worse than right. IMPRESSION: 1. Subtle area of slightly decreased parenchymal attenuation is seen in the mid left kidney. This could represent early pyelonephritis. Correlate with UA. 2. Nonacute findings as noted. Please note that all CT scans at this facility use dose modulation, iterative reconstruction, and/or weight-based dosing when appropriate to reduce radiation dose to as low as reasonably achievable. Dictated by Sam Negron MD @ Jan 07 2019 11:41AM Signed by Dr. Sam Negron @ Jan 07 2019 11:52AM
[2019-01-06 23:33] VITALS: BP 133/71
== END 2019-01-06 23:25 | disposition home or self-care (01) ==
LOC: MW.ED 20:26
DX: R10.31 Right lower quadrant pain (principal); Z88.0 Allergy status to penicillin; Z88.8 Allergy status to other drugs, medicaments and biological substances
CPT/HCPCS: 36415; 74178; 80053; 81001; 81025; 83690; 85025; 96361; 96374; 96375; 99284; J1885; J2405; J7040; Q9967

== ENCOUNTER 2019-01-31 00:46 | Emergency (ER) | payer MEDICAID ==
[2019-01-31 01:00] VITALS: BP 123/75
--- NOTE | 2019-01-31 01:13 | EDM.PDOC ---
ED HPI GENERAL MEDICAL PROBLEM - General Chief Complaint: General Stated Complaint: LOWER RIGHT ABDOMINAL PAIN, UNEXPLAINED BRUISING Time Seen by Provider: 01/31/19 01:04 - History of Present Illness INITIAL COMMENTS - FREE TEXT/NARRATIVE: HISTORY AND PHYSICAL: History of present illness: Patient 38 year old female presents with a concern of chronic right lower extremity pain. She denies trauma or other concern Review of systems: As per history of present illness and below otherwise all systems reviewed and negative. Past medical history: As per history of present illness and as reviewed below otherwise noncontributory. Surgical history: As per history of present illness and as reviewed below otherwise noncontributory. Social history: No reported history of drug or alcohol abuse. Family history: As per history of present illness and as reviewed below otherwise noncontributory. Physical exam: HEENT: Atraumatic, normocephalic, pupils reactive, negative for conjunctival pallor or scleral icterus, mucous membranes moist, throat clear, neck supple, nontender, trachea midline. Lungs: Clear to auscultation, breath sounds equal bilaterally, chest nontender. Heart: S1S2, regular, negative for clicks, rubs, or JVD. Abdomen: Soft, nondistended, nontender. Negative for masses or hepatosplenomegaly. Negative for costovertebral tenderness. Pelvis: Stable nontender. Genitourinary: Deferred. Rectal: Deferred. Extremities: Atraumatic, negative for cords or calf pain. Neurovascular unremarkable. Neuro: Awake, alert, oriented. Cranial nerves II through XII unremarkable. Cerebellum unremarkable. Motor and sensory unremarkable throughout. Exam nonfocal. Diagnostics: CBC CMP UA Therapeutics: None Impression: #1 chronic lower extremity pain etiology be determined Definitive disposition and diagnosis as appropriate pending reevaluation and review of above. right inguinal area Pain Score (Numeric/FACES): 5 - Related Data Allergies Allergy/AdvReac Type Severity Reaction Status Date / Time divalproex sodium Allergy Change Verified 01/31/19 00:56 [From Depakote] Mental Status fluoxetine HCl [From Prozac] Allergy Change Verified 01/31/19 00:56 Mental Status gabapentin [From Neurontin] Allergy Change Verified 01/31/19 00:56 Mental Status Penicillins Allergy Difficulty Verified 01/31/19 00:56 Breathing Dtp Shot Allergy Cannot Uncoded 01/31/19 00:56 Remember Home Meds: Home Meds Beta Mini 01/21/17 [History] Anti-Inflamatory Meds 08/05/18 [History] Past Medical History - Past Health History Medical/Surgical History: Denies Medical/Surgical History HEENT History: Reports: None Cardiovascular History: Reports: Arrhythmia Other Cardiovascular History: palpitations Respiratory History: Reports: Other (See Below) Other Respiratory History: Reports sleep apnea, "but not bad enough for a machine" Gastrointestinal History: Reports: None Other Gastrointestinal History: REcent abodminal Pain Genitourinary History: Reports: None 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: Other COATER BRAKE LININGS History: cyst on right ovary Musculoskeletal History: Reports: Back Pain, Chronic, Other (See Below) Other Musculoskeletal History: Raynauds Disease Neurological History: Reports: Seizure Psychiatric History: Reports: Anxiety, Depression Endocrine/Metabolic History: Reports: None Other Endocrine/Metabolic History: Have been checking and watching my Thyroid, "vitamin D3 deficit" Hematologic History: Reports: None Immunologic History: Reports: None Oncologic (Cancer) History: Reports: None Dermatologic History: Reports: Other (See Below) Other Dermatologic History: Eczema - Infectious Disease History Infectious Disease History: Reports: None - Past Surgical History Head Surgeries/Procedures: Reports: None HEENT Surgical History: Reports: None GI Surgical History: Reports: None Female Surgical History: Reports: Section Neurological Surgical History: Reports: None Oncologic Surgical History: Reports: None Social & Family History - Family History Family Medical History: Noncontributory - Tobacco Use Smoking Status *Q: Current Every Day Smoker Years of Tobacco use: 15 Packs/Tins Daily: 0.5 - Caffeine Use Caffeine Use: Reports: Coffee - Recreational Drug Use Recreational Drug Use: No ED ROS GENERAL - Review of Systems Review Of Systems: ROS reveals no pertinent complaints other than HPI. ED EXAM, GENERAL - Physical Exam Exam: See Below (See dictation) Course - Vital Signs Last Recorded V/S: Last Vital Signs Temp 36.4 C 01/31/19 00:55 Pulse 92 01/31/19 00:55 Resp 18 01/31/19 00:55 BP 123/75 01/31/19 00:55 Pulse Ox 97 01/31/19 00:55 - Orders/Labs/Meds Orders: Active Orders 24 hr Category Date Time Status CBC WITH AUTO DIFF [HEME] Stat Lab 01/31/19 01:09 Ordered CMP [COMPREHENSIVE METABOLIC PN,CMP] [CHEM] Stat Lab 01/31/19 01:09 Ordered UA RFX CONSTANCE AND CULT IF INDIC [URIN] Stat Lab 01/31/19 01:00 Received Departure - Departure Time of Disposition: 01:12 Disposition: Home, Self-Care 01 Condition: Good Clinical Impression: Chronic lower limb pain - Discharge Information Referrals: Juan Carlos Manuel MD [Primary Care Provider] - Additional Instructions: The following information is given to patients seen in the emergency department who are being discharged to home. This information is to outline your options for follow-up care. We provide all patients seen in our emergency department with a follow-up referral. The need for follow-up, as well as the timing and circumstances, are variable depending upon the specifics of your emergency department visit. If you don't have a primary care physician on staff, we will provide you with a referral. We always advise you to contact your personal physician following an emergency department visit to inform them of the circumstance of the visit and for follow-up with them and/or the need for any referrals to a consulting specialist. The emergency department will also refer you to a specialist when appropriate. This referral assures that you have the opportunity for followup care with a specialist. All of these measure are taken in an effort to provide you with optimal care, which includes your followup. Under all circumstances we always encourage you to contact your private physician who remains a resource for coordinating your care. When calling for followup care, please make the office aware that this follow-up is from your recent emergency room visit. If for any reason you are refused follow-up, please contact the [facility] emergency department at and asked to speak to the emergency department charge nurse. Follow-up primary medical doctor return as needed as discussed - My Orders Last 24 Hours: My Active Orders 01/31/19 01:00 UA RFX CONSTANCE AND CULT IF INDIC [URIN] Stat 01/31/19 01:09 CBC WITH AUTO DIFF [HEME] Stat CMP [COMPREHENSIVE METABOLIC PN,CMP] [CHEM] Stat - Assessment/Plan Last 24 Hours: My Active Orders 01/31/19 01:00 UA RFX CONSTANCE AND CULT IF INDIC [URIN] Stat 01/31/19 01:09 CBC WITH AUTO DIFF [HEME] Stat CMP [COMPREHENSIVE METABOLIC PN,CMP] [CHEM] Stat
[2019-01-31 01:40] LABS: CHLORIDE,CL 108 mmol/L (98-107); SODIUM,NA 143 mmol/L (136-145)
== END 2019-01-31 01:26 | disposition home or self-care (01) ==
LOC: MW.ED 00:46
DX: M79.604 Pain in right leg (principal); R10.31 Right lower quadrant pain; F17.210 Nicotine dependence, cigarettes, uncomplicated; Z88.0 Allergy status to penicillin; Z88.8 Allergy status to other drugs, medicaments and biological substances
CPT/HCPCS: 36415; 80053; 81001; 85025; 99284

== ENCOUNTER 2019-06-04 18:59 | Emergency (ER) | payer MEDICAID ==
--- NOTE | 2019-06-04 19:32 | EDM.PDOC ---
ED HPI GENERAL MEDICAL PROBLEM - General Chief Complaint: Upper Extremity Injury/Pain Stated Complaint: LOSS OF FEELING IN HANDS Time Seen by Provider: 06/04/19 20:13 - History of Present Illness INITIAL COMMENTS - FREE TEXT/NARRATIVE: HISTORY AND PHYSICAL: History of present illness: Patient 39-year-old white female who presents with a concern of discomfort in her hands bilaterally over last 3-4 days she denies neck pain denies any other paresthesia or any other weakness denies chest pain shortness breath nausea vomiting or other concern. Patient is well-known to the emergency department is been seen many times for a variety of different nonspecific complaints Review of systems: As per history of present illness and below otherwise all systems reviewed and negative. Past medical history: As per history of present illness and as reviewed below otherwise noncontributory. Surgical history: As per history of present illness and as reviewed below otherwise noncontributory. Social history: No reported history of drug or alcohol abuse. Family history: As per history of present illness and as reviewed below otherwise noncontributory. Physical exam: HEENT: Atraumatic, normocephalic, pupils reactive, negative for conjunctival pallor or scleral icterus, mucous membranes moist, throat clear, neck supple, nontender, trachea midline. Lungs: Clear to auscultation, breath sounds equal bilaterally, chest nontender. Heart: S1S2, regular, negative for clicks, rubs, or JVD. Abdomen: Soft, nondistended, nontender. Negative for masses or hepatosplenomegaly. Negative for costovertebral tenderness. Pelvis: Stable nontender. Genitourinary: Deferred. Rectal: Deferred. Extremities: Atraumatic, negative for cords or calf pain. Neurovascular unremarkable. Neuro: Awake, alert, oriented. Cranial nerves II through XII unremarkable. Cerebellum unremarkable. Motor and sensory unremarkable throughout. Exam nonfocal. Diagnostics: X-ray cervical spine CBC CMP EKG Therapeutics: None Impression: #1 medical screening exam Definitive disposition and diagnosis as appropriate pending reevaluation and review of above. bilateral arms Pain Score (Numeric/FACES): 6 - Related Data Allergies Allergy/AdvReac Type Severity Reaction Status Date / Time divalproex sodium Allergy Change Verified 06/04/19 19:17 [From Depakote] Mental Status fluoxetine HCl [From Prozac] Allergy Change Verified 06/04/19 19:17 Mental Status gabapentin [From Neurontin] Allergy Change Verified 06/04/19 19:17 Mental Status Penicillins Allergy Difficulty Verified 06/04/19 19:17 Breathing Dtp Shot Allergy Cannot Uncoded 06/04/19 19:17 Remember Home Meds: Home Meds Beta Mini 01/21/17 [History] Anti-Inflamatory Meds 08/05/18 [History] Past Medical History - Past Health History Medical/Surgical History: Denies Medical/Surgical History HEENT History: Reports: None Cardiovascular History: Reports: Arrhythmia Other Cardiovascular History: palpitations Respiratory History: Reports: Other (See Below) Other Respiratory History: Reports sleep apnea, "but not bad enough for a machine" Gastrointestinal History: Reports: None Other Gastrointestinal History: REcent abodminal Pain Genitourinary History: Reports: None 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: cyst on right ovary Musculoskeletal History: Reports: Back Pain, Chronic, Other (See Below) Other Musculoskeletal History: Raynauds Disease Neurological History: Reports: Seizure Psychiatric History: Reports: Anxiety, Depression Endocrine/Metabolic History: Reports: None Other Endocrine/Metabolic History: Have been checking and watching my Thyroid, "vitamin D3 deficit" Hematologic History: Reports: None Immunologic History: Reports: None Oncologic (Cancer) History: Reports: None Dermatologic History: Reports: Other (See Below) Other Dermatologic History: Eczema - Infectious Disease History Infectious Disease History: Reports: None - Past Surgical History Head Surgeries/Procedures: Reports: None HEENT Surgical History: Reports: None GI Surgical History: Reports: None Female Surgical History: Reports: Section Neurological Surgical History: Reports: None Oncologic Surgical History: Reports: None Social & Family History - Family History Family Medical History: Noncontributory - Tobacco Use Smoking Status *Q: Current Every Day Smoker Years of Tobacco use: 15 Packs/Tins Daily: 0.5 - Caffeine Use Caffeine Use: Reports: Coffee - Recreational Drug Use Recreational Drug Use: No Review of Systems - Review of Systems Review Of Systems: Comprehensive ROS is negative, except as noted in HPI. ED EXAM, GENERAL - Physical Exam Exam: See Below (See dictation) Course - Vital Signs Last Recorded V/S: Last Vital Signs Temp 35.6 C 06/04/19 19:14 Pulse 89 06/04/19 19:14 Resp 18 06/04/19 19:14 BP 145/94 H 06/04/19 19:14 Pulse Ox 98 06/04/19 19:14 - Orders/Labs/Meds Orders: Active Orders 24 hr Category Date Time Status EKG 12 Lead [EKG Documentation Completion] [RC] STAT Care 06/04/19 19:31 Active COMPREHENSIVE METABOLIC PN,CMP [CHEM] Stat Lab 06/04/19 19:40 Received Labs: Laboratory Tests 06/04/19 Range/Units 19:40 WBC 8.73 (4.0-11.0) K/uL RBC 4.45 (4.30-5.90) M/uL Hgb 12.8 (12.0-16.0) g/dL Hct 39.1 (36.0-46.0) % MCV 87.9 (80.0-98.0) fL MCH 28.8 (27.0-32.0) pg MCHC 32.7 (31.0-37.0) g/dL RDW Std Deviation 45.4 (28.0-62.0) fl RDW Coeff of Arpit 14 (11.0-15.0) % Plt Count 417 H (150-400) K/uL MPV 10.70 (7.40-12.00) fL Neut % (Auto) 59.3 (48.0-80.0) % Lymph % (Auto) 29.7 (16.0-40.0) % Traverse % (Auto) 5.7 (0.0-15.0) % Eos % (Auto) 4.4 (0.0-7.0) % Baso % (Auto) 0.9 (0.0-1.5) % Neut # (Auto) 5.2 (1.4-5.7) K/uL Lymph # (Auto) 2.6 H (0.6-2.4) K/uL Traverse # (Auto) 0.5 (0.0-0.8) K/uL Eos # (Auto) 0.4 (0.0-0.7) K/uL Baso # (Auto) 0.1 (0.0-0.1) K/uL Nucleated RBC % 0.0 /100WBC Nucleated RBCs # 0 K/uL Departure - Departure Time of Disposition: 19:32 Disposition: Home, Self-Care 01 Condition: Good Clinical Impression: Encounter for medical screening examination - Discharge Information Referrals: Juan Carlos Manuel MD [Primary Care Provider] - Forms: ED Department Discharge Additional Instructions: The following information is given to patients seen in the emergency department who are being discharged to home. This information is to outline your options for follow-up care. We provide all patients seen in our emergency department with a follow-up referral. The need for follow-up, as well as the timing and circumstances, are variable depending upon the specifics of your emergency department visit. If you don't have a primary care physician on staff, we will provide you with a referral. We always advise you to contact your personal physician following an emergency department visit to inform them of the circumstance of the visit and for follow-up with them and/or the need for any referrals to a consulting specialist. The emergency department will also refer you to a specialist when appropriate. This referral assures that you have the opportunity for followup care with a specialist. All of these measure are taken in an effort to provide you with optimal care, which includes your followup. Under all circumstances we always encourage you to contact your private physician who remains a resource for coordinating your care. When calling for followup care, please make the office aware that this follow-up is from your recent emergency room visit. If for any reason you are refused follow-up, please contact the [facility] emergency department at and asked to speak to the emergency department charge nurse. Follow-up primary medical doctor return as needed as discussed - My Orders Last 24 Hours: My Active Orders 06/04/19 19:31 EKG 12 Lead [EKG Documentation Completion] [RC] STAT 06/04/19 19:40 COMPREHENSIVE METABOLIC PN,CMP [CHEM] Stat - Assessment/Plan Last 24 Hours: My Active Orders 06/04/19 19:31 EKG 12 Lead [EKG Documentation Completion] [RC] STAT 06/04/19 19:40 COMPREHENSIVE METABOLIC PN,CMP [CHEM] Stat
--- NOTE | 2019-06-04 20:05 | CR ---
HISTORY: Upper extremity pain. COMPARISON: 04/24/2018. FINDINGS: Vertebral body and disc heights are preserved. No evidence for acute fracture or dislocation. Prevertebral soft tissues are within normal. Dictated by Stacey Ibanez MD @ Jun 04 2019 8:04PM Signed by Dr. Stacey Ibanez @ Jun 04 2019 8:04PM
[2019-06-04 20:12] LABS: BLOOD UREA NITROGEN,BUN 17 mg/dL (7.0-18.0); CARBON DIOXIDE,CO2 24.5 mmol/L (21.0-32.0); CHLORIDE,CL 108 mmol/L (98-107); GLUCOSE RANDOM 122 mg/dL (74-106); SODIUM,NA 143 mmol/L (136-145)
[2019-06-04 20:30] VITALS: BP 136/61; PULSE 79
== END 2019-06-04 20:30 | disposition home or self-care (01) ==
LOC: MW.ED 18:59
DX: Z00.01 Encounter for general adult medical examination with abnormal findings (principal); F17.210 Nicotine dependence, cigarettes, uncomplicated; Z88.0 Allergy status to penicillin; Z88.7 Allergy status to serum and vaccine; Z88.8 Allergy status to other drugs, medicaments and biological substances
CPT/HCPCS: 36415; 72040; 72040-26; 80053; 85025; 93005; 99284-25

== ENCOUNTER 2019-06-25 15:10 | Emergency (ER) | payer MEDICAID ==
[2019-06-25 15:57] VITALS: PULSE 97
[2019-06-25] MEDS ORDERED: Ketorolac 60 MG/2 ML SDV IM ONE (16:13)
--- NOTE | 2019-06-25 16:24 | EDM.PDOC ---
ED HPI GENERAL MEDICAL PROBLEM - General Chief Complaint: Back Pain or Injury Stated Complaint: LOW BACK AND HIP PAIN Time Seen by Provider: 06/25/19 15:33 Source of Information: Reports: Patient History Limitations: Reports: No Limitations - History of Present Illness INITIAL COMMENTS - FREE TEXT/NARRATIVE: HISTORY AND PHYSICAL: History of present illness: Patient is a 39-year-old female who presents to the ED today for concern of low back pain and right hip pain after a fall that occurred at work earlier this morning. 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 Patient states that the wire had caught the leaking of her pants and she did not realize it and when she started walking she fell. Patient states she landed on her left hip and since then has had low back pain and left hip pain. Patient states she did not hit her head or lose consciousness. Patient states she has a history of tubal ligation. Patient denies saddle anesthesia or loss or retention of bowel bladder function. Patient denies fever, chills, chest pain, shortness of breath, or cough. Denies headache, neck stiff ness, change in vision, syncope, or near syncope. Denies nausea, vomiting, abdominal pain, diarrhea, constipation, or dysuria. Has not noted any blood in urine or stool. Patient has been eating and drinking appropriately. Review of systems: As per history of present illness and below otherwise all systems reviewed and negative. Past medical history: As per history of present illness and as reviewed below otherwise noncontributory. Surgical history: As per history of present illness and as reviewed below otherwise noncontributory. Social history: See social history for further information Family history: As per history of present illness and as reviewed below otherwise noncontributory. Physical exam: General: Patient is alert, oriented, and in no acute distress. Patient sitting comfortably on exam table. HEENT: Atraumatic, normocephalic, pupils equal and reactive bilaterally, negative for conjunctival pallor or scleral icterus, mucous membranes moist, TMs normal bilaterally, throat clear, neck supple, nontender, trachea midline. No drooling or trismus noted. No meningeal signs. No hot potato voice noted. Lungs: Clear to auscultation, breath sounds equal bilaterally, chest nontender. Heart: S1S2, regular rate and rhythm without overt murmur Abdomen: Soft, nondistended, nontender. Negative for masses or hepatosplenomegaly. Negative for costovertebral tenderness. Pelvis: Stable nontender. Genitourinary: Deferred. Rectal: Deferred. Skin: Intact, warm, dry. No lesions or rashes noted. Extremities: Atraumatic, negative for cords or calf pain. Neurovascular unremarkable. No obvious deformity of the complete spine. No step-offs, crepitus, or point tenderness to palpation of the complete spine. Patient does have mild pain with palpation of the paraspinous muscles of the lumbar spine but does have full ROM of bilateral lower extremities without pain or difficulty. Patient does have mild to moderate pain with range of motion of the lumbar spine but does have full range of motion of the complete spine. Heel/ Toe gait intact. Patellar reflex intact bilateral. SLR intact bilaterally. Neuro: Awake, alert, oriented. Cranial nerves II through XII unremarkable. Cerebellum unremarkable. Motor and sensory unremarkable throughout. Exam nonfocal. Notes: Discussed importance for follow-up with primary care provider. Voices understanding and is agreeable to plan of care. Denies any further questions or concerns at this time. Diagnostics: Lumbar x-ray, pelvic with hip x-ray Therapeutics: Toradol Prescription: Diclofenac, Flexeril Impression: Low back pain Right hip pain H/O fall Plan: 1. Medication as prescribed. You can also use Tylenol as directed for pain and discomfort. 2. Ice and/or heat the affected areas for 15 minutes on 15 minutes off over the next 24 to 48 hours for pain and discomfort. 3. Follow-up with your primary care provider as discussed. Return to the ED as needed and as discussed. Definitive disposition and diagnosis as appropriate pending reevaluation and review of above. Lower Back Pain Score (Numeric/FACES): 6 - Related Data Allergies Allergy/AdvReac Type Severity Reaction Status Date / Time divalproex sodium Allergy Change Verified 06/25/19 15:54 [From Depakote] Mental Status fluoxetine HCl [From Prozac] Allergy Change Verified 06/25/19 15:54 Mental Status gabapentin [From Neurontin] Allergy Change Verified 06/25/19 15:54 Mental Status Penicillins Allergy Difficulty Verified 06/25/19 15:54 Breathing Dtp Shot Allergy Cannot Uncoded 06/25/19 15:54 Remember Home Meds: Home Meds Beta Mini 01/21/17 [History] Anti-Inflamatory Meds 08/05/18 [History] Cyclobenzaprine [Flexeril] 10 mg PO TID PRN #9 tab 06/25/19 [Rx] Diclofenac Sodium [Voltaren] 75 mg PO BIDMEALS PRN #15 tab.cr 06/25/19 [Rx] Past Medical History - Past Health History Medical/Surgical History: Denies Medical/Surgical History HEENT History: Reports: None Cardiovascular History: Reports: Arrhythmia Other Cardiovascular History: palpitations Respiratory History: Reports: Other (See Below) Other Respiratory History: Reports sleep apnea, "but not bad enough for a machine" Gastrointestinal History: Reports: None Other Gastrointestinal History: REcent abodminal Pain Genitourinary History: Reports: None 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 ACCOUNT SUPERVISOR History: cyst on right ovary Musculoskeletal History: Reports: Back Pain, Chronic, Other (See Below) Other Musculoskeletal History: Raynauds Disease Neurological History: Reports: Seizure Psychiatric History: Reports: Anxiety, Depression Endocrine/Metabolic History: Reports: None Other Endocrine/Metabolic History: Have been checking and watching my Thyroid, "vitamin D3 deficit" Hematologic History: Reports: None Immunologic History: Reports: None Oncologic (Cancer) History: Reports: None Dermatologic History: Reports: Other (See Below) Other Dermatologic History: Eczema - Infectious Disease History Infectious Disease History: Reports: Chicken Pox - Past Surgical History Head Surgeries/Procedures: Reports: None HEENT Surgical History: Reports: None GI Surgical History: Reports: None Female Surgical History: Reports: Section Neurological Surgical History: Reports: None Oncologic Surgical History: Reports: None Social & Family History - Family History Family Medical History: Noncontributory - Tobacco Use Smoking Status *Q: Former Smoker Years of Tobacco use: 15 Packs/Tins Daily: 0.5 Used Tobacco, but Quit: Yes Month/Year Tobacco Last Used: 3weeks - Caffeine Use Caffeine Use: Reports: Coffee - Recreational Drug Use Recreational Drug Use: No ED ROS GENERAL - Review of Systems Review Of Systems: Comprehensive ROS is negative, except as noted in HPI. ED EXAM, GENERAL - Physical Exam Exam: See Below (see dictation) Course - Vital Signs Last Recorded V/S: Last Vital Signs Temp 98.6 F 06/25/19 15:55 Pulse 97 06/25/19 15:55 Resp 20 06/25/19 15:55 BP 136/69 06/25/19 15:55 Pulse Ox 96 06/25/19 15:55 - Orders/Labs/Meds Meds: Medications Discontinued Medications Generic Name Dose Route Start Last Admin Trade Name Freq PRN Reason Stop Dose Admin Ketorolac Tromethamine 60 mg 06/25/19 16:13 06/25/19 17:08 Toradol IM 06/25/19 16:14 60 mg ONETIME ONE Administration Departure - Departure Time of Disposition: 17:11 Disposition: Home, Self-Care 01 Clinical Impression: Right hip pain, History of fall Low back pain Qualifiers: Back pain laterality: midline Sciatica presence: without sciatica Qualified Code(s): M54.5 - Low back pain - Discharge Information Prescriptions: Cyclobenzaprine [Flexeril] 10 mg PO TID PRN #9 tab PRN Reason: Spasms Diclofenac Sodium [Voltaren] 75 mg PO BIDMEALS PRN #15 tab.cr PRN Reason: Pain Referrals: Juan Carlos Manuel MD [Primary Care Provider] - Forms: ED Department Discharge Additional Instructions: The following information is given to patients seen in the emergency department who are being discharged to home. This information is to outline your options for follow-up care. We provide all patients seen in our emergency department with a follow-up referral. The need for follow-up, as well as the timing and circumstances, are variable depending upon the specifics of your emergency department visit. If you don't have a primary care physician on staff, we will provide you with a referral. We always advise you to contact your personal physician following an emergency department visit to inform them of the circumstance of the visit and for follow-up with them and/or the need for any referrals to a consulting specialist. The emergency department will also refer you to a specialist when appropriate. This referral assures that you have the opportunity for follow-up care with a specialist. All of these measure are taken in an effort to provide you with optimal care, which includes your follow-up. Under all circumstances we always encourage you to contact your private physician who remains a resource for coordinating your care. When calling for follow-up care, please make the office aware that this follow-up is from your recent emergency room visit. If for any reason you are refused follow-up, please contact the [facility] Emergency Department at and asked to speak to the emergency department charge nurse. [facility] [address] [place] [address] [address] 1. Take medication as prescribed. You can also use Tylenol as directed for pain and discomfort. 2. Ice and/or heat the affected areas for 15 minutes on 15 minutes off over the next 24 to 48 hours for pain and discomfort. 3. Follow-up with your primary care provider as discussed. Return to the ED as needed and as discussed. Sepsis Event Note - Evaluation Sepsis Screening Result: No Definite Risk - Focused Exam Vital Signs: Vital Signs Temp Pulse Resp BP Pulse Ox 06/25/19 15:55 98.6 F 97 20 136/69 96 Date Exam was Performed: 06/25/19 Time Exam was Performed: 17:11
--- NOTE | 2019-06-25 16:51 | CR ---
Indication: Fall and pain Technique: Pelvis and right hip 3 views Comparison: Right hip 04/24/2018 Findings: Bones: Alignment is normal. No fractures or bone lesions. Joint spaces: No dislocation. Hip joint space narrowing on the left with exuberant osteophytes which can be seen in pincer type femoral acetabular impingement. Disc space narrowing lower lumbar spine with lateral osteophytes. Soft tissues: Unremarkable. Impression: 1. No evidence of fracture or dislocation. 2. Moderate left hip osteoarthritis. Dictated by Jose Elias Luna MD @ Jun 25 2019 4:47PM Signed by Dr. Jose Elias Luna @ Jun 25 2019 4:50PM
--- NOTE | 2019-06-25 16:55 | CR ---
INDICATION: Pain after fall TECHNIQUE: Lumbar spine 3 view COMPARISON: Lumbar spine 04/24/2018 FINDINGS: Bones: Mild rightward curvature lumbar spine. No evidence of fracture. Joints: Disc space narrowing L3-4, L4-5 and L5-S1 with small osteophytes. Soft tissues: Unremarkable. 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 Dictated by Jose Elias Luna MD @ Jun 25 2019 4:47PM Signed by Dr. Jose Elias Luna @ Jun 25 2019 4:54PM
[2019-06-25 17:26] VITALS: BP 119/66
== END 2019-06-25 17:24 | disposition home or self-care (01) ==
LOC: MW.ED 15:10
DX: M54.5 Low back pain (principal); M25.551 Pain in right hip; Z88.0 Allergy status to penicillin; Z88.8 Allergy status to other drugs, medicaments and biological substances; Z87.891 Personal history of nicotine dependence
CPT/HCPCS: 72100; 73502; 96372; 99283; J1885

== ENCOUNTER 2019-10-05 23:02 | Emergency (ER) | payer MEDICAID ==
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
--- NOTE | 2019-10-05 23:50 | CR ---
INDICATION: Shortness of breath. CHEST, ONE VIEW An AP radiograph of the chest was performed. Comparison: 11/28/2017. The lungs appear clear and no pleural effusions are identified. The cardiomediastinal silhouette and pulmonary vasculature appear normal, as do the visualized bones. IMPRESSION: No acute intrathoracic abnormality identified. SURY ARREDONDO MD [facility] Dictated by: Yasmany Arredondo MD @ 10/05/2019 23:49:34 (Electronically Signed)
[2019-10-06] MEDS ORDERED: LORazepam 1 MG Tab PO ONE (00:01)
[2019-10-06 01:32] VITALS: BP 132/83; PULSE 95
== END 2019-10-06 01:05 | disposition home or self-care (01) ==
LOC: MW.ED 23:02
DX: F41.9 Anxiety disorder, unspecified (principal); Z87.891 Personal history of nicotine dependence; Z88.8 Allergy status to other drugs, medicaments and biological substances; Z88.0 Allergy status to penicillin; Z88.7 Allergy status to serum and vaccine
CPT/HCPCS: 71045; 71045-26; 93005; 99285-25; A9270-GY

== ENCOUNTER → 2019-10-22 | Day surgery (SDC) | payer MEDICAID ==
[~2019-10-22] MED LIST: Acetaminophen 1,000 MG in Premix Bag 1 BAG IV ONE; Fluorescein 5 ML Vial ONE; Furosemide 40 MG/4 ML VIAL ONE; HYDROmorphone 2 MG/ML Syringe IVPUSH PRN; Ketorolac 30 MG/ML SDV IVPUSH ONE; Ketorolac 30 MG/ML SDV ONE; Lactated Ringers 1,000 ML IV SCH; Midazolam 1 MG/ML 2 ML SDV ONE; Octyl 2-Cyanoacrylate 1 Tube ONE; Propofol 200 MG/20 ML SDV ONE; Rocuronium 100 MG/10 ML Syringe ONE; Sodium Chloride 0.9% 20 ML ONE; Succinylcholine/Sod PF 100 MG/5 ML SYRINGE IV ONE; ceFAZolin/Dextrose,Iso-Osmotic 2 GM/50 ML Duplex Bag IV ONE; ePHEDrine 50 MG/ML SDV ONE; fentaNYL 100 MCG/2 ML SDV IVPUSH PRN; fentaNYL 250 MCG/5 ML SDV ONE; oxyCODONE 5 MG Tab PO ONE
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
--- NOTE | 2019-10-22 10:43 | PCM.OPNOTE ---
- General Post-Op/Procedure Note Date of Surgery/Procedure: 10/22/19 Operative Procedure(s): Dignostic laparoscopy Post-Op Diagnosis: Same Anesthesia Technique: General ET Tube EBL in mLs: 25 Complications: None Condition: Good
[2019-10-22] MEDS: fentaNYL 100 MCG/2 ML SDV IVPUSH PRN ×2 (10:57→11:03)
--- NOTE | 2019-10-22 12:03 | PCM.POSTAN ---
POST ANESTHESIA ASSESSMENT - MENTAL STATUS Mental Status: Alert, Oriented - VITAL SIGNS Vital Signs: Last Vital Signs Temp 36.5 C 10/22/19 10:43 Pulse 76 10/22/19 11:23 Resp 20 10/22/19 11:23 BP 135/66 10/22/19 11:23 Pulse Ox 96 10/22/19 11:23 - RESPIRATORY Respiratory Status: Respiratory Rate WNL, Airway Patent, O2 Saturation Stable - CARDIOVASCULAR CV Status: Pulse Rate WNL, Blood Pressure Stable - GASTROINTESTINAL GI Status: No Symptoms - PAIN Pain Score: 4 - POST OP HYDRATION Hydration Status: Adequate & Stable - OBSERVATIONS Free Text/Narrative:: No anesthesia problems
[2019-10-22 12:55] VITALS: BP 136/74; PULSE 72
--- NOTE | 2019-10-22 13:27 | PCM48HPAN ---
Post Anesthesia Note - EVALUATION WITHIN 48HRS OF ANESTHETIC Vital Signs in Normal Range: Yes Patient Participated in Evaluation: Yes Respiratory Function Stable: Yes Airway Patent: Yes Cardiovascular Function Stable: Yes Hydration Status Stable: Yes Pain Control Satisfactory: Yes Nausea and Vomiting Control Satisfactory: Yes Mental Status Recovered: Yes Vital Signs: Last Vital Signs Temp 37.1 C 10/22/19 11:30 Pulse 72 10/22/19 12:15 Resp 16 10/22/19 12:15 BP 136/74 10/22/19 12:15 Pulse Ox 96 10/22/19 12:15 - COMMENTS/OBSERVATIONS Free Text/Narrative:: No anesthesia problems
--- NOTE | 2019-10-23 14:16 | OR ---
SURGEON: Jeronimo Willis MD DATE OF PROCEDURE: 10/22/2019 PREOPERATIVE DIAGNOSIS: Pelvic pain. POSTOPERATIVE DIAGNOSIS: Pelvic pain. OPERATION PERFORMED: Diagnostic laparoscopy. 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 ANESTHESIA: General endotracheal intubation. ESTIMATED BLOOD LOSS: Less than 50 mL. COMPLICATIONS: None. FINDINGS: Normal uterus, tubes, and ovaries. INDICATION FOR SURGERY: This patient is 39 years old. She is para 2-0-0-2. She is status post tubal ligation. She was treated in the emergency room and in the office for pelvic pain. The patient continued to have this issue of pelvic pain, keeping her away from going to work, so we decided to do a diagnostic laparoscopy with the possibility of doing hysterectomy if needed. PROCEDURE IN DETAIL: The patient was brought to the OR, properly identified, and after adequate level of anesthesia, the patient was placed in lithotomy position, prepped and draped in sterile fashion as usual, and Delgadillo catheter was placed in the bladder for drainage and the manipulator placed in the uterus for manipulation and then operation shifted abdominally. Stab wound done beneath the umbilicus. A Veress needle was placed in the peritoneal cavity and that cavity insufflated with 3.5 L of carbon dioxide, and 5 mm trocar with the scope in it entered the peritoneal cavity, utilizing the Visiport technique. Once we were in the peritoneal cavity, placed the patient in Trendelenburg, and inspection of her pelvis showed that the uterus was small and normal. Both ovaries were visualized and normal. There was no cyst. There was no adhesion and there was no evidence of endometriosis. It became apparent that the patient does not need to have a hysterectomy, based on the laparoscopic findings, so with that in mind, the procedure ended. Instrument and sponge count was correct. The laparoscopic incisions, 2 of them, were closed with 3-0 Vicryl without any problem and the patient tolerated the procedure well, went to recovery room in stable general condition. MARTHA / BONILLA /[id number]
== END ==
LOC: MW.SDS 08:03
PROVIDERS: ATTEND Obstetrics & Gynecology
DX: R10.2 Pelvic and perineal pain (principal); F41.9 Anxiety disorder, unspecified; E03.9 Hypothyroidism, unspecified; E66.01 Morbid (severe) obesity due to excess calories; Z68.41 Body mass index [BMI] 40.0-44.9, adult; Z88.0 Allergy status to penicillin; Z88.8 Allergy status to other drugs, medicaments and biological substances; Z79.899 Other long term (current) drug therapy; Z87.891 Personal history of nicotine dependence; Z98.51 Tubal ligation status
CPT/HCPCS: 36415; 49320; 85027; 86850; 86900; 86901; A9270; J0131; J0330; J0690; J1170; J1885; J1940; J2250; J2704; J3010; J7120

== ENCOUNTER 2019-11-09 19:53 | Emergency (ER) | payer MEDICAID ==
[2019-11-09] MEDS ORDERED: Sodium Chloride 0.9% 10 ML Syringe FLUSH PRN (20:37)
[2019-11-09] MEDS ORDERED: Sodium Chloride 0.9% 1,000 ML IV ONE (20:37)
[2019-11-09] MEDS ORDERED: Ketorolac 30 MG/ML SDV IVPUSH ONE (20:37)
[2019-11-09] MEDS ORDERED: Sodium Chloride 0.9% 2.5 ML Syringe FLUSH PRN (20:37)
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
--- NOTE | 2019-11-09 21:19 | CR ---
Pelvis: AP portable view of the pelvis was obtainedw as well as AP and frog-leg lateral views left hip. Artifact is noted presumably from patient body habitus. Comparison: Previous pelvis and hips study of 04/24/18. Moderate to severe joint space narrowing noted within the left hip. Over coverage of the left femoral head is noted due to prominent bone within the superior acetabulum. Prominent bone within the superior right acetabulum also noted causing over coverage of the femoral head. Mild joint space narrowing noted within the medial right hip. Sacroiliac joint shows mild degenerative change. Mild osteophytes noted off the left femoral head. Mild degenerative endplate spurring seen within the spine. No acute abnormality is seen. Impression: 1. Moderate to severe degenerative change with left hip. 2. Mild degenerative change within the right hip. 3. Mild degenerative change within the sacroiliac joints. 4. Nothing acute is seen. Diagnostic code #3 This report was dictated in MDT
[2019-11-09 21:44] LABS: BLOOD UREA NITROGEN,BUN 18 mg/dL (7.0-18.0); CARBON DIOXIDE,CO2 23.8 mmol/L (21.0-32.0); CHLORIDE,CL 106 mmol/L (98-107); GLUCOSE RANDOM 119 mg/dL (74-106); POTASSIUM,K 3.6 mmol/L (3.5-5.1); SODIUM,NA 141 mmol/L (136-145)
[2019-11-09 23:38] VITALS: BP 116/89; PULSE 84
== END 2019-11-09 22:25 | disposition home or self-care (01) ==
LOC: MW.ED 19:53
DX: M25.552 Pain in left hip (principal); F03.90 Unspecified dementia, unspecified severity, without behavioral disturbance, psychotic disturbance, mood disturbance, and anxiety; E66.9 Obesity, unspecified; Z68.37 Body mass index [BMI] 37.0-37.9, adult; Z88.0 Allergy status to penicillin; Z88.8 Allergy status to other drugs, medicaments and biological substances
CPT/HCPCS: 36415; 73502; 80053; 85025; 96374; 99284; J1885; J7030; 99283

== ENCOUNTER 2019-12-25 03:03 | Emergency (ER) | payer MEDICAID ==
[2019-12-25 03:20] VITALS: BP 97/71; PULSE 107
[2019-12-25] MEDS ORDERED: Acetaminophen 500 MG Tab PO ONE (03:32)
[2019-12-25] MEDS ORDERED: Ketorolac 60 MG/2 ML SDV IM ONE (03:32)
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
== END 2019-12-25 04:08 | disposition home or self-care (01) ==
LOC: MW.ED 03:03
DX: M54.16 Radiculopathy, lumbar region (principal); F41.9 Anxiety disorder, unspecified; F32.9 Major depressive disorder, single episode, unspecified; E66.9 Obesity, unspecified; Z68.41 Body mass index [BMI] 40.0-44.9, adult; F17.210 Nicotine dependence, cigarettes, uncomplicated; Z88.8 Allergy status to other drugs, medicaments and biological substances; Z88.0 Allergy status to penicillin; Z88.7 Allergy status to serum and vaccine; Z79.899 Other long term (current) drug therapy
CPT/HCPCS: 96372; 99283; A9270; J1885; 99282

== ENCOUNTER 2020-01-02 13:25 | Emergency (ER) | payer MEDICAID ==
[2020-01-02] MEDS ORDERED: Sodium Chloride 0.9% 2.5 ML Syringe FLUSH PRN ×2 (13:50)
[2020-01-02] MEDS ORDERED: Aspirin 81 MG Tab.Chew PO ONE (13:50)
[2020-01-02] MEDS ORDERED: Sodium Chloride 0.9% 10 ML Syringe FLUSH PRN (13:50)
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
[2020-01-02 14:14] LABS: BLOOD UREA NITROGEN,BUN 14 mg/dL (7.0-18.0); CHLORIDE,CL 106 mmol/L (98-107); GLUCOSE RANDOM 117 mg/dL (74-106); POTASSIUM,K 4.1 mmol/L (3.5-5.1); SODIUM,NA 138 mmol/L (136-145)
--- NOTE | 2020-01-02 14:31 | CR ---
INDICATION: Chest pain TECHNIQUE: Chest 1 view COMPARISON: None FINDINGS: Cardiovascular and mediastinum: Heart size and vasculature are normal in caliber and appearance. Lungs and pleural spaces: Lungs are clear. No sign of infiltrate or mass. No sign of pleural effusion. No pneumothorax. Bones and soft tissues: No significant findings. IMPRESSION: No acute or significant findings. Dictated by Kali Julien MD @ Jan 02 2020 2:29PM Signed by Dr. Kali Julien @ Jan 02 2020 2:29PM
[2020-01-02 14:55] VITALS: BP 118/70; PULSE 95
== END 2020-01-02 14:56 | disposition home or self-care (01) ==
LOC: MW.ED 13:25
DX: R07.9 Chest pain, unspecified (principal); E66.9 Obesity, unspecified; Z68.36 Body mass index [BMI] 36.0-36.9, adult; F41.9 Anxiety disorder, unspecified; F32.9 Major depressive disorder, single episode, unspecified; F17.210 Nicotine dependence, cigarettes, uncomplicated; Z88.8 Allergy status to other drugs, medicaments and biological substances; Z88.0 Allergy status to penicillin; Z79.899 Other long term (current) drug therapy
CPT/HCPCS: 36415; 71045; 80053; 84484; 85025; 93005; 99285; A9270; 99283

== ENCOUNTER 2020-01-27 17:46 | Emergency (ER) | payer MEDICAID ==
[2020-01-27 18:05] VITALS: BP 126/65; PULSE 102
[2020-01-27] MEDS ORDERED: Ketorolac 15 MG/ML SDV IVPUSH ONE (19:05)
[2020-01-27] MEDS ORDERED: Sodium Chloride 0.9% 10 ML Syringe FLUSH PRN (19:05)
[2020-01-27] MEDS ORDERED: Sodium Chloride 0.9% 2.5 ML Syringe FLUSH PRN (19:05)
[2020-01-27] MEDS ORDERED: Lactated Ringers 1,000 ML IV ONE (19:05)
[2020-01-27] MEDS ORDERED: Ondansetron 4 MG Tab.DIS PO ONE (19:05)
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
[2020-01-27 19:57] LABS: BLOOD UREA NITROGEN,BUN 18 mg/dL (7.0-18.0); CARBON DIOXIDE,CO2 19.9 mmol/L (21.0-32.0); CHLORIDE,CL 103 mmol/L (98-107); GLUCOSE RANDOM 94 mg/dL (74-106); POTASSIUM,K 4.1 mmol/L (3.5-5.1); SODIUM,NA 135 mmol/L (136-145)
[2020-01-27] MEDS ORDERED: Morphine 4 MG/ML Syringe IVPUSH ONE (20:13)
[2020-01-27] MEDS ORDERED: Acetaminophen 500 MG Tab PO ONE (20:46)
== END 2020-01-27 21:01 | disposition home or self-care (01) ==
LOC: MW.ED 17:46
DX: T67.5XXA Heat exhaustion, unspecified, initial encounter (principal); M54.5 Low back pain; R10.9 Unspecified abdominal pain; F17.210 Nicotine dependence, cigarettes, uncomplicated; E86.0 Dehydration; E66.9 Obesity, unspecified; Z68.37 Body mass index [BMI] 37.0-37.9, adult; Z88.8 Allergy status to other drugs, medicaments and biological substances; Z88.0 Allergy status to penicillin; Z88.7 Allergy status to serum and vaccine
CPT/HCPCS: 80053; 81001; 81025; 85025; 96361; 96374; 99284; A9270; J1885; J7120; 99283

== ENCOUNTER 2020-01-29 09:39 | Emergency (ER) | payer MEDICAID ==
[2020-01-29] MEDS ORDERED: Lactated Ringers 1,000 ML IV ONE (10:29)
[2020-01-29] MEDS ORDERED: Sodium Chloride 0.9% 10 ML Syringe FLUSH PRN (10:29)
[2020-01-29] MEDS ORDERED: Sodium Chloride 0.9% 2.5 ML Syringe FLUSH PRN (10:29)
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
--- NOTE | 2020-01-29 10:56 | CR ---
Chest: Portable view of the chest was obtained. Comparison: Prior chest x-ray of 01/02/20. Heart size and mediastinum are normal. Lungs are clear with no acute parenchymal change. Scattered degenerative spurring is noted within the spine. Impression: 1. Nothing acute is seen on portable chest x-ray. Diagnostic code #1 This report was dictated in MDT
[2020-01-29] MEDS ORDERED: Gadobenate Dimeglumine 529 MG/ML 20 ML SDV IVPUSH STA (11:41)
[2020-01-29 12:05] LABS: BLOOD UREA NITROGEN,BUN 14 mg/dL (7.0-18.0); CARBON DIOXIDE,CO2 22.5 mmol/L (21.0-32.0); CHLORIDE,CL 105 mmol/L (98-107); GLUCOSE RANDOM 86 mg/dL (74-106); POTASSIUM,K 4.5 mmol/L (3.5-5.1); SODIUM,NA 139 mmol/L (136-145)
--- NOTE | 2020-01-29 12:35 | MR ---
MRI lumbar spine (without and with intravenous contrast) Technique: T1, T2 and T1 fat-suppressed postcontrast axial images were obtained from the mid disc level at T11-12 through the L5-S1 disc. T1, T2, fat suppressed inversion recovery and T1 fat-suppressed postcontrast sagittal images were obtained. Comparison: No prior lumbar spine imaging is available. Findings: T11-12: Posterior disc is preserved. No central canal stenosis or neural foraminal stenosis is seen. T12-L1: Posterior disc is preserved. No central canal stenosis or neural foraminal stenosis is seen. L1-2: Slight circumferential disc bulge is seen. Posterior disc maintains a concave margin. No central canal stenosis or neural foraminal stenosis is seen. Slight degenerative endplate signal change is noted. L2-3: Posterior disc maintains a concave margin. No central canal stenosis or neural foraminal stenosis is seen. Very minimal degenerative apophyseal change is noted. L3-4: Moderate disc space narrowing noted. Mild circumferential disc bulge is present. Posterior disc maintains a concave margin. No central canal stenosis or neural foraminal stenosis is seen. L4-5: Minimal circumferential disc bulge is seen. Posterior disc maintains a concave margin. No central canal stenosis is seen. Disc bulging is noted into the left neural foramina inferiorly. Nerve roots appear to exit without compromise. Minimal degenerative apophyseal change is seen. Mild degenerative endplate signal change is noted. L5-S1: Asymmetric disc protrusion is seen posterolaterally into the right neural foramina causing right-sided neural foraminal stenosis. Left neural foramina is patent where the nerve root exits. No central canal stenosis is seen. Conus medullaris and cauda equina shows no abnormal signal or mass. No abnormal enhancement is appreciated. Impression: 1. Degenerative change as noted above. Most prominent findings are a disc protrusion into the right neural foramina causing compromise of the exiting right L5 nerve root. Diagnostic code #3 This report was dictated in MDT
[2020-01-29 13:34] VITALS: BP 130/61; PULSE 87
== END 2020-01-29 13:32 | disposition home or self-care (01) ==
LOC: MW.ED 09:39
DX: T67.5XXA Heat exhaustion, unspecified, initial encounter (principal); E66.9 Obesity, unspecified; F41.9 Anxiety disorder, unspecified; F32.9 Major depressive disorder, single episode, unspecified; F17.210 Nicotine dependence, cigarettes, uncomplicated; Z88.0 Allergy status to penicillin; Z88.8 Allergy status to other drugs, medicaments and biological substances; Z88.7 Allergy status to serum and vaccine; Z98.890 Other specified postprocedural states; Z79.899 Other long term (current) drug therapy; Z68.41 Body mass index [BMI] 40.0-44.9, adult
CPT/HCPCS: 36415; 71045; 72158; 80053; 80305; 81001; 81025; 82550; 83735; 84100; 84439; 84443; 84484; 85025; 85652; 86140; 87040; 93005; 96361; 96374; 99284; A9577; J7120; 99283

== ENCOUNTER 2020-03-03 00:05 | Emergency (ER) | payer MEDICAID | END 2020-03-03 00:30 | disposition left against medical advice (07) | LOC: MW.ED 00:05 | DX: Z53.21 Procedure and treatment not carried out due to patient leaving prior to being seen by health care provider (principal) ==

== ENCOUNTER 2020-03-05 15:01 | Emergency (ER) | payer MEDICAID ==
[2020-03-05] MEDS ORDERED: cefTRIAXone 2 GM in Premix Bag 1 BAG IV ONE (16:36)
[2020-03-05] MEDS ORDERED: Sodium Chloride 0.9% 10 ML Syringe FLUSH PRN (16:36)
[2020-03-05] MEDS ORDERED: HYDROmorphone 1 MG/ML Syringe IVPUSH ONE (16:36)
[2020-03-05] MEDS ORDERED: Ketorolac 15 MG/ML SDV IVPUSH ONE (16:36)
[2020-03-05] MEDS ORDERED: Prochlorperazine 10 MG/2 ML SDV IVPUSH ONE (16:36)
[2020-03-05] MEDS ORDERED: Sodium Chloride 0.9% 2.5 ML Syringe FLUSH PRN (16:36)
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
--- NOTE | 2020-03-05 17:30 | CT ---
INDICATION: Left flank pain. Possible urolithiasis. COMPARISON: CT of the abdomen and pelvis with and without contrast from 01/06/2019 TECHNIQUE: CT examination of the abdomen and pelvis was performed without contrast enhancement using 3 mm thick axial sections from the lung bases through the pubic symphysis. Oral contrast was not administered. Please note that all CT scans at this facility use dose modulation, iterative reconstruction, and/or weight-based dosing when appropriate to reduce radiation dose to as low as reasonably achievable. FINDINGS: In the abdomen, the liver remains low in density, representing fatty infiltration. There is no sign of mass. The liver remains mildly enlarged, measuring 24.3 centimeters in length, previously 23.6 centimeters. The spleen is again seen to have a calcified granuloma in the anterior lower pole. Again seen are tiny low-density regions in the midbody of the spleen as well as a tiny punctate calcified granuloma. The spleen is otherwise normal in appearance. The pancreas and adrenals are normal in appearance. The previously seen 2 millimeter nonobstructive calculus in the upper pole of the left kidney is no longer present. There is a new 5 millimeter nonobstructive calculus in the lower pole of the left kidney. There is no sign of left hydronephrosis or hydroureter. There is no sign of left ureterolithiasis. There is no sign of right-sided calculus or obstruction. The right kidney is normal in appearance. The gallbladder is normal in appearance. The abdominal aorta is normal in caliber with no sign of dilatation. There is no sign of retroperitoneal mass or adenopathy. The stomach, loops of small bowel, and colon in the abdomen are normal in appearance. In the pelvis, the appendix is normal in appearance with no sign of inflammatory process. The loops of small bowel and colon in the pelvis are normal in appearance. The uterus and adnexal regions are normal in appearance. The urinary bladder is normal in appearance. There is no sign of pelvic or inguinal mass or adenopathy. There is no sign of free air or free fluid in the abdomen or pelvis. The lung bases are clear. Again seen is mild scoliosis of the lumbar spine convex towards the right. Again seen is moderate L3-4 and L5-S1 disc degenerative disease. Again seen is moderate right lateral L5-S1 disc bulging into the neural foramina with posterior osteophytic ridging, probably resulting in moderate compression of the right L5 nerve root. IMPRESSION: CT of the abdomen shows a new 5 millimeter nonobstructive calculus in the lower pole of the left kidney. The previously seen nonobstructive 2 millimeter calculus in the upper pole of the left kidney is no longer present. No sign of left hydronephrosis, hydroureter, or ureterolithiasis. Stable mild enlargement of the liver with diffuse fatty infiltration. Normal CT of the pelvis without contrast. No change in moderate right lateral L5-S1 disc bulging with posterior osteophytic ridging which probably results in moderate compression of the right L5 nerve root in the neural foramina. Please note that all CT scans at this facility use dose modulation, iterative reconstruction, and/or weight-based dosing when appropriate to reduce radiation dose to as low as reasonably achievable. Dictated by Darrell Villeda MD @ Mar 05 2020 5:20PM Signed by Dr. Darrell Villeda @ Mar 05 2020 5:29PM
[2020-03-05] MEDS ORDERED: diphenhydrAMINE 50 MG/ML SDV IVPUSH ONE (17:31)
[2020-03-05 17:33] LABS: BLOOD UREA NITROGEN,BUN 10 mg/dL (7.0-18.0); CARBON DIOXIDE,CO2 23.9 mmol/L (21.0-32.0); CHLORIDE,CL 107 mmol/L (98-107); GLUCOSE RANDOM 129 mg/dL (74-106); POTASSIUM,K 3.8 mmol/L (3.5-5.1); SODIUM,NA 141 mmol/L (136-145)
[2020-03-05 18:31] VITALS: BP 143/70; PULSE 75
== END 2020-03-05 18:03 | disposition home or self-care (01) ==
LOC: MW.ED 15:01
DX: N12 Tubulo-interstitial nephritis, not specified as acute or chronic (principal); E66.9 Obesity, unspecified; Z68.36 Body mass index [BMI] 36.0-36.9, adult; Z88.0 Allergy status to penicillin; Z88.3 Allergy status to other anti-infective agents; Z88.7 Allergy status to serum and vaccine; Z88.8 Allergy status to other drugs, medicaments and biological substances; Z79.899 Other long term (current) drug therapy; Z98.51 Tubal ligation status; T67.5XXA Heat exhaustion, unspecified, initial encounter
CPT/HCPCS: 36415; 74176; 80048; 81001; 81025; 82550; 83605; 84703; 85025; 87040; 96365; 96375; 99284; J0696; J0780; J1200; J1885; 99283

== ENCOUNTER 2020-03-07 21:24 | Emergency (ER) | payer MEDICAID ==
[2020-03-07] MEDS ORDERED: Ketorolac 30 MG/ML SDV IVPUSH ONE (21:45)
[2020-03-07] MEDS ORDERED: Sodium Chloride 0.9% 10 ML Syringe FLUSH PRN (21:47)
[2020-03-07] MEDS ORDERED: Sodium Chloride 0.9% 2.5 ML Syringe FLUSH PRN (21:47)
[2020-03-07] MEDS ORDERED: Lactated Ringers 1,000 ML IV ONE (21:48)
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
[2020-03-07 22:37] LABS: BLOOD UREA NITROGEN,BUN 16 mg/dL (7.0-18.0); CHLORIDE,CL 104 mmol/L (98-107); GLUCOSE RANDOM 119 mg/dL (74-106); POTASSIUM,K 3.6 mmol/L (3.5-5.1); SODIUM,NA 138 mmol/L (136-145)
[2020-03-07] MEDS ORDERED: Iopamidol 755 Mg/ML 100 ML Bottle IVPUSH STA (23:57)
--- NOTE | 2020-03-08 00:37 | CT ---
INDICATION: Left lower quadrant pain and tenderness. Leukocytosis. TECHNIQUE: CT abdomen and pelvis acquired with IV contrast. 100 mL of Isovue 370 administered. COMPARISON: 03/05/2020 FINDINGS: Lower chest: Asymmetrical right breast densities could be related to glandular tissue. Liver: Hepatomegaly and hepatic steatosis. Spleen: Calcified splenic granulomas again seen. A small curvilinear low attenuations central splenic focus could be related to invaginated splenic hilar fat. Pancreas: Unremarkable. Gallbladder and bile ducts: Unremarkable. Adrenal glands: Unremarkable. Kidneys: No hydronephrosis. A 5 mm nonobstructive left renal lower pole calculus again seen. GI tract: No bowel obstruction. Normal appendix. No significant pericolonic changes. Vascular structures: Unremarkable. Lymph nodes: A mildly prominent portacaval lymph node again seen which could be reactive in the setting of hepatic steatosis. Miscellaneous: No significant free fluid or free air. Pelvic Organs: Unremarkable. Bones: Degenerative changes in the spine and left hip. IMPRESSION: No evidence of an acute process in the abdomen or pelvis. Hepatomegaly and hepatic steatosis. Nonobstructive left renal calculus again seen. Old granulomatous disease. Dictated by Miguel Avendaño MD @ 03/08/2020 12:33:09 AM Please note that all CT scans at this facility use dose modulation, iterative reconstruction, and/or weight-based dosing when appropriate to reduce radiation dose to as low as reasonably achievable. Dictated by: Miguel Avendaño MD @ 03/08/2020 00:35:46 (Electronically Signed)
[2020-03-08 03:41] VITALS: BP 136/74; PULSE 97
== END 2020-03-08 00:51 | disposition home or self-care (01) ==
LOC: MW.ED 21:24
DX: M54.16 Radiculopathy, lumbar region (principal); F17.210 Nicotine dependence, cigarettes, uncomplicated; E66.9 Obesity, unspecified; Z88.0 Allergy status to penicillin; Z88.8 Allergy status to other drugs, medicaments and biological substances; Z88.7 Allergy status to serum and vaccine; Z68.35 Body mass index [BMI] 35.0-35.9, adult
CPT/HCPCS: 36415; 74177; 80053; 81001; 81025; 83605; 85025; 96361; 96374; 99284; J1885; J7120; Q9967; 99283

== ENCOUNTER 2020-03-21 20:11 | Emergency (ER) | payer MEDICAID ==
[2020-03-21] MEDS ORDERED: Ketorolac 60 MG/2 ML SDV IM ONE (20:43)
[2020-03-21] MEDS ORDERED: Acetaminophen/HYDROcodone 325-5 MG Tab PO ONE ×2 (20:43→22:01)
[2020-03-21] MEDS ORDERED: Cyclobenzaprine 10 MG Tab PO ONE (20:43)
[2020-03-21] MEDS ORDERED: Lidocaine 5% 700 MG Patch TOP ONE (20:44)
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
[2020-03-21] MEDS ORDERED: predniSONE 20 MG Tab PO ONE (22:02)
[2020-03-21 23:02] VITALS: BP 120/59; PULSE 96
== END 2020-03-21 23:05 | disposition home or self-care (01) ==
LOC: MW.ED 20:11
DX: M54.5 Low back pain (principal); G89.29 Other chronic pain; E66.9 Obesity, unspecified; Z68.37 Body mass index [BMI] 37.0-37.9, adult; Z88.0 Allergy status to penicillin; Z88.8 Allergy status to other drugs, medicaments and biological substances; Z88.7 Allergy status to serum and vaccine; Z79.899 Other long term (current) drug therapy
CPT/HCPCS: 96372; 99284; A9270; J1885; 99283

== ENCOUNTER 2020-04-10 15:57 | Emergency (ER) | payer MEDICAID, OTHER ==
[2020-04-10 16:17] VITALS: PULSE 118
[2020-04-10] MEDS ORDERED: Sodium Chloride 0.9% 10 ML Syringe FLUSH PRN (16:20)
[2020-04-10] MEDS ORDERED: Sodium Chloride 0.9% 2.5 ML Syringe FLUSH PRN (16:20)
[2020-04-10 16:23] VITALS: BP 150/88
[2020-04-10] MEDS ORDERED: Sodium Chloride 0.9% 1,000 ML IV ONE (16:24)
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
[2020-04-10 17:19] LABS: BLOOD UREA NITROGEN,BUN 13 mg/dL (7.0-18.0); CARBON DIOXIDE,CO2 23.4 mmol/L (21.0-32.0); CHLORIDE,CL 108 mmol/L (98-107); GLUCOSE RANDOM 157 mg/dL (74-106); POTASSIUM,K 3.7 mmol/L (3.5-5.1); SODIUM,NA 142 mmol/L (136-145)
--- NOTE | 2020-04-10 17:22 | CR ---
INDICATION: Shortness of breath. TECHNIQUE: Chest 1 view. COMPARISON: 01/29/2020 FINDINGS: Cardiovascular and mediastinum: Heart size and vasculature are normal in caliber and appearance. Mediastinum is within normal limits. Lungs and pleural space: Lungs are clear. No pleural effusion. No pneumothorax. Bones and soft tissues: No acute findings. IMPRESSION: No acute pulmonary process. Dictated by Rohan Andres MD @ Apr 10 2020 5:20PM Signed by Dr. Rohan Andres @ Apr 10 2020 5:22PM
[2020-04-10] MEDS ORDERED: Alum Hydrox/Mag Hydrox/Simeth 15 ML, Metoclopramide 5 MG, Lidocaine 2% 5 ML PO ONE ×3 (17:51)
[2020-04-10] MEDS ORDERED: Albuterol/Ipratropium 3.0-0.5 MG/3 ML Neb Soln NEB ONE (17:51)
--- NOTE | 2020-04-10 18:19 | PCM.SN.2 ---
EKG INTERPRETATION EKG Date: 04/10/20 Time: 16:35 Rhythm: NSR Rate (Beats/Min): 107 [place]: Normal P-Wave: Present QRS: Normal ST-T: Normal QT: Normal Comparison: NA - No Prior EKG
[2020-04-10] MEDS ORDERED: Albuterol 8 GM Inhaler INH ONE (18:56)
[2020-04-10] MEDS ORDERED: Albuterol HFA 18 Gm Inhaler ONE (19:05)
== END 2020-04-10 19:10 | disposition home or self-care (01) ==
LOC: MW.ED 15:57
DX: B34.9 Viral infection, unspecified (principal); E66.9 Obesity, unspecified; Z98.51 Tubal ligation status; Z88.8 Allergy status to other drugs, medicaments and biological substances; Z88.0 Allergy status to penicillin; Z88.7 Allergy status to serum and vaccine; Z79.899 Other long term (current) drug therapy; Z68.37 Body mass index [BMI] 37.0-37.9, adult; Z87.891 Personal history of nicotine dependence; Z20.828 Contact with and (suspected) exposure to other viral communicable diseases
CPT/HCPCS: 36415; 71045; 80053; 81001; 84484; 85025; 87635; 93005; 94640; 96360; 99284; A9270; J7030; 93010; 99283; J3535-GY; J7620-GY; U0002

== ENCOUNTER 2020-04-17 19:31 | Emergency (ER) | payer MEDICAID ==
[2020-04-17] MEDS ORDERED: Ketorolac 60 MG/2 ML SDV IM ONE (20:59)
[2020-04-17] MEDS ORDERED: Cyclobenzaprine 10 MG Tab PO ONE (20:59)
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
[2020-04-17 21:29] VITALS: BP 110/80; PULSE 110
== END 2020-04-17 21:34 | disposition home or self-care (01) ==
LOC: MW.ED 19:31
DX: M54.5 Low back pain (principal); E66.9 Obesity, unspecified; Z68.37 Body mass index [BMI] 37.0-37.9, adult; Z88.8 Allergy status to other drugs, medicaments and biological substances; Z88.0 Allergy status to penicillin; Z88.7 Allergy status to serum and vaccine; Z79.899 Other long term (current) drug therapy; Z87.891 Personal history of nicotine dependence
CPT/HCPCS: 81001; 81025; 96372; 99283; A9270; J1885

== ENCOUNTER 2020-04-22 20:25 | Emergency (ER) | payer MEDICAID ==
[2020-04-22] MEDS ORDERED: Sodium Chloride 0.9% 2.5 ML Syringe FLUSH PRN (21:33)
[2020-04-22] MEDS ORDERED: Sodium Chloride 0.9% 10 ML Syringe FLUSH PRN (21:33)
[2020-04-22] MEDS ORDERED: Ketorolac 30 MG/ML SDV IVPUSH ONE (22:00)
[2020-04-22] MEDS ORDERED: Ondansetron 4 MG/2 ML SDV IVPUSH ONE (22:00)
[2020-04-22] MEDS ORDERED: Sodium Chloride 0.9% 1,000 ML IV ONE (22:00)
[2020-04-22 22:14] LABS: BLOOD UREA NITROGEN,BUN 17 mg/dL (7.0-18.0); CARBON DIOXIDE,CO2 23.7 mmol/L (21.0-32.0); CHLORIDE,CL 105 mmol/L (98-107); GLUCOSE RANDOM 103 mg/dL (74-106); LIPASE 214 U/L (73-393); SODIUM,NA 140 mmol/L (136-145)
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
--- NOTE | 2020-04-22 23:37 | CT ---
INDICATION: Left flank pain COMPARISON: 03/07/2020 TECHNIQUE: CT examination of the abdomen and pelvis was performed without contrast enhancement using 3 mm thick axial sections from the lung bases through the pubic symphysis. Oral contrast was not administered. Please note that all CT scans at this facility use dose modulation, iterative reconstruction, and/or weight-based dosing when appropriate to reduce radiation dose to as low as reasonably achievable. FINDINGS: In the abdomen, the unenhanced liver is again seen to be fatty infiltrated and moderately enlarged, measuring 24.2 centimeters in length, no sign of any mass. The spleen remains top normal in size, measuring 11.9 centimeters in length. A few calcified granulomata are seen in the spleen. The pancreas and adrenals are normal in appearance. There is a nonobstructive 6 millimeter calculus in the lower pole of the left kidney, unchanged compared to the previous study. There is no sign of any additional renal or ureteral calculi. There is no sign of hydroureter. The gallbladder is collapsed and is otherwise normal in appearance. The abdominal aorta is normal in caliber with no sign of dilatation. There is no sign of retroperitoneal mass or adenopathy. The stomach, loops of small bowel, and colon in the abdomen are normal in appearance. In the pelvis, the appendix is normal in appearance with no sign of inflammatory process. The loops of small bowel and colon in the pelvis are normal in appearance. The uterus and adnexal regions are normal in appearance. The urinary bladder is normal in appearance. There is no sign of pelvic or inguinal mass or adenopathy. There is no sign of free air or free fluid in the abdomen or pelvis. The lung bases are clear. There is no change and moderate L3-4 and L5-S1 disc degenerative disease. Again seen is moderate right lateral L5-S1 disc bulging and posterior osteophytic ridging extending into the neural foramina, probably resulting in prominent compression of the right L5 nerve root. Again seen is mild scoliosis of the lumbar spine convex towards the right. 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 IMPRESSION: Nothing seen that would explain the patient`s left flank pain. Stable appearance of a 6 millimeter nonobstructive calculus in the lower pole of the left kidney, with no sign of hydronephrosis, hydroureter, or ureterolithiasis. No sign of diverticulitis or diverticulosis. CT of the abdomen shows no change in moderate enlargement of the liver with fatty infiltration. The spleen remains top-normal in size. Normal CT of the pelvis without contrast. Please note that all CT scans at this facility use dose modulation, iterative reconstruction, and/or weight-based dosing when appropriate to reduce radiation dose to as low as reasonably achievable. Dictated by Darrell Villeda MD @ Apr 22 2020 11:24PM Signed by Dr. Darrell Villeda @ Apr 22 2020 11:35PM
[2020-04-23 02:29] VITALS: BP 123/74; PULSE 96
== END 2020-04-23 01:01 | disposition home or self-care (01) ==
LOC: MW.ED 20:25
DX: R10.32 Left lower quadrant pain (principal); R11.0 Nausea; E66.9 Obesity, unspecified; Z68.41 Body mass index [BMI] 40.0-44.9, adult; Z88.8 Allergy status to other drugs, medicaments and biological substances; Z88.0 Allergy status to penicillin; Z88.7 Allergy status to serum and vaccine; Z79.899 Other long term (current) drug therapy
CPT/HCPCS: 36415; 74176; 80053; 81003; 83690; 84703; 85025; 96374; 96375; 99284; J1885; J2405; J7030; 99283

== ENCOUNTER 2020-05-14 00:39 | Emergency (ER) | payer MEDICAID ==
[2020-05-14] MEDS ORDERED: traMADol 50 MG Tab PO ONE (01:23)
[2020-05-14] MEDS ORDERED: Cyclobenzaprine 10 MG Tab PO ONE (01:23)
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
[2020-05-14 02:42] VITALS: BP 101/55; PULSE 71
== END 2020-05-14 01:55 | disposition home or self-care (01) ==
LOC: MW.ED 00:39
DX: M54.5 Low back pain (principal); E66.9 Obesity, unspecified; Z68.37 Body mass index [BMI] 37.0-37.9, adult; Z88.8 Allergy status to other drugs, medicaments and biological substances; Z88.0 Allergy status to penicillin; Z88.7 Allergy status to serum and vaccine; Z79.899 Other long term (current) drug therapy
CPT/HCPCS: 99283; A9270

== ENCOUNTER 2020-07-02 16:50 | Emergency (ER) | payer MEDICAID ==
[2020-07-02 17:06] VITALS: BP 118/77; PULSE 95
[2020-07-02] MEDS ORDERED: LORazepam 2 MG/ML SDV IM ONE (17:26)
[2020-07-02] MEDS ORDERED: Ketorolac 15 MG/ML SDV IM ONE (17:26)
[2020-07-02] MEDS ORDERED: Acetaminophen/HYDROcodone 325-10 MG Tab PO ONE (18:20)
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
== END 2020-07-02 18:55 | disposition left against medical advice (07) ==
LOC: MW.ED 16:50
DX: G89.29 Other chronic pain (principal); M25.552 Pain in left hip; R56.9 Unspecified convulsions; F17.210 Nicotine dependence, cigarettes, uncomplicated; E66.9 Obesity, unspecified; Z68.39 Body mass index [BMI] 39.0-39.9, adult; Z88.8 Allergy status to other drugs, medicaments and biological substances; Z88.0 Allergy status to penicillin; Z88.7 Allergy status to serum and vaccine; Z79.899 Other long term (current) drug therapy
CPT/HCPCS: 96372; 99283; A9270; J1885; J2060

== ENCOUNTER 2020-07-08 01:21 | Emergency (ER) | payer MEDICAID ==
[2020-07-08 01:34] VITALS: BP 142/90; PULSE 114
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
== END 2020-07-08 02:30 | disposition left against medical advice (07) ==
LOC: MW.ED 01:21
DX: M25.552 Pain in left hip (principal); E66.9 Obesity, unspecified; Z68.41 Body mass index [BMI] 40.0-44.9, adult; Z88.8 Allergy status to other drugs, medicaments and biological substances; Z88.0 Allergy status to penicillin; Z88.7 Allergy status to serum and vaccine; Z79.899 Other long term (current) drug therapy
CPT/HCPCS: 99283

== ENCOUNTER 2020-10-25 09:19 | Day surgery (SDC) | payer MEDICAID ==
[~2020-10-25 09:19] MED LIST changes: -Acetaminophen 1,000 MG in Premix Bag 1 BAG IV ONE; +Clindamycin Phosphate in D5W 600 MG in Premix Bag 1 BAG IV ONE; -Fluorescein 5 ML Vial ONE; -Furosemide 40 MG/4 ML VIAL ONE; -HYDROmorphone 2 MG/ML Syringe IVPUSH PRN; -Ketorolac 30 MG/ML SDV IVPUSH ONE; -Ketorolac 30 MG/ML SDV ONE; -Midazolam 1 MG/ML 2 ML SDV ONE; -Octyl 2-Cyanoacrylate 1 Tube ONE; -Propofol 200 MG/20 ML SDV ONE; -Rocuronium 100 MG/10 ML Syringe ONE; +Sodium Chloride 0.9% 10 ML SDV IV PRN; +Sodium Chloride 0.9% 10 ML Syringe FLUSH PRN; +Sodium Chloride 0.9% 2.5 ML Syringe FLUSH PRN; -Sodium Chloride 0.9% 20 ML ONE; -Succinylcholine/Sod PF 100 MG/5 ML SYRINGE IV ONE; -ceFAZolin/Dextrose,Iso-Osmotic 2 GM/50 ML Duplex Bag IV ONE; -ePHEDrine 50 MG/ML SDV ONE; -fentaNYL 100 MCG/2 ML SDV IVPUSH PRN; -fentaNYL 250 MCG/5 ML SDV ONE; -oxyCODONE 5 MG Tab PO ONE
[2020-10-25] MEDS ORDERED: Clindamycin Phosphate in D5W 50 ML ONE (10:28)
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
[2020-10-25] MEDS ORDERED: Ketorolac 30 MG/ML SDV ONE (11:12)
[2020-10-25] MEDS ORDERED: fentaNYL 100 MCG/2 ML SDV ONE (11:12)
[2020-10-25] MEDS ORDERED: Propofol 200 MG/20 ML SDV ONE (11:12)
[2020-10-25] MEDS ORDERED: Lidocaine 2% 5 ML SDV ONE (11:12)
[2020-10-25] MEDS ORDERED: Midazolam 1 MG/ML 2 ML SDV ONE (11:12)
[2020-10-25] MEDS ORDERED: Ondansetron 4 MG/2 ML SDV ONE (11:12)
[2020-10-25] MEDS ORDERED: Glycopyrrolate 0.2 MG/ML SDV ONE (11:12)
[2020-10-25] MEDS ORDERED: Famotidine 20 MG/2 ML SDV ONE (12:15)
[2020-10-25] MEDS ORDERED: Lidocaine 1% 20 ML MDV ONE (12:24)
[2020-10-25] MEDS ORDERED: Bupivacaine 0.5% 30 ML SDV ONE (12:24)
[2020-10-25] MEDS ORDERED: Clindamycin Phosphate in D5W 600 MG in Premix Bag 1 BAG IV ONE ×2 (12:45)
--- NOTE | 2020-10-25 13:14 | PCM.OPNOTE ---
<Cas Boo - Last Filed: 10/25/20 13:15> - General Post-Op/Procedure Note Date of Surgery/Procedure: 10/25/20 Pre Op Diagnosis: Right groin skin abscess Post-Op Diagnosis: Right groin skin lesion Anesthesia Technique: General LMA, Local Primary Surgeon: Marquita Hawkins Fluid Replacement, Intraop: 200 EBL in mLs: 2 Condition: Good Free Text/Narrative:: Excision of right groin skin lesion measuring 1cm X 1cm X 0.8cm <Marquita Hawkins - Last Filed: 10/25/20 13:19> - General Post-Op/Procedure Note Free Text/Narrative:: Intake & Output 10/24/20 10/25/20 10/25/20 22:59 06:59 14:59 Intake Total 400 Balance 400
--- NOTE | 2020-10-25 13:19 | PCM.OPNOTE ---
- General Post-Op/Procedure Note Date of Surgery/Procedure: 10/25/20 Operative Procedure(s): Excision right groin skin lesion Findings: Right groin skin lesion which could be a chronically infected hair follicle or cyst. Skin lesion excised was 1 cm x 1cm x 8mm and lesion itself measured ~ 8 x 6 mm. No margins associated with case. Pre Op Diagnosis: RIght groin skin lesion Post-Op Diagnosis: same Anesthesia Technique: General LMA, MAC Primary Surgeon: Marquita Hawkins Fluid Replacement, Intraop: 200 EBL in mLs: 2 Condition: Good Free Text/Narrative:: Intake & Output 10/24/20 10/25/20 10/25/20 22:59 06:59 14:59 Intake Total 200 Balance 200
--- NOTE | 2020-10-25 13:52 | PCM.POSTAN ---
POST ANESTHESIA ASSESSMENT - MENTAL STATUS Mental Status: Alert - VITAL SIGNS Vital Signs: Last Vital Signs Temp 36.0 C L 10/25/20 13:11 Pulse 58 L 10/25/20 13:42 Resp 18 10/25/20 13:42 BP 104/55 L 10/25/20 13:42 Pulse Ox 96 10/25/20 13:42 - RESPIRATORY Respiratory Status: Respiratory Rate WNL, Supplemental Oxygen - CARDIOVASCULAR CV Status: Pulse Rate WNL - GASTROINTESTINAL GI Status: No Symptoms - POST OP HYDRATION Hydration Status: Adequate & Stable
--- NOTE | 2020-10-25 14:18 | PCM48HPAN ---
Post Anesthesia Note - EVALUATION WITHIN 48HRS OF ANESTHETIC Vital Signs in Normal Range: Yes Patient Participated in Evaluation: Yes Respiratory Function Stable: Yes Airway Patent: Yes Cardiovascular Function Stable: Yes Hydration Status Stable: Yes Pain Control Satisfactory: Yes Nausea and Vomiting Control Satisfactory: Yes Mental Status Recovered: Yes Vital Signs: Last Vital Signs Temp 36.0 C L 10/25/20 13:11 Pulse 58 L 10/25/20 13:42 Resp 18 10/25/20 13:42 BP 104/55 L 10/25/20 13:42 Pulse Ox 96 10/25/20 13:42
--- NOTE | 2020-10-25 14:19 | OR ---
SURGEON: MARQUITA HAWKINS MD DATE OF PROCEDURE: 10/25/2020 PREOPERATIVE DIAGNOSIS: Right groin skin abscess-skin lesion. POSTOPERATIVE DIAGNOSIS: Right groin skin abscess-skin lesion. PROCEDURE PERFORMED: Excision of right groin skin lesion. PRIMARY SURGEON: Marquita Hawkins MD ANESTHESIA: General LMA, local. FLUIDS: 200 mL of crystalloid. ESTIMATED BLOOD LOSS: 2 mL. FINDINGS: 1 cm x 1 cm x 0.8 cm thickened skin lesion in the right groin. COMPLICATIONS: None. INDICATIONS: The patient is a 40-year-old female who presented to my clinic with a chronically infected and/or inflamed lesion in her right groin. She has been on antibiotics before, but as soon as she stops the antibiotics, the lesion becomes inflamed and painful again. On physical exam, she had a hard nodular area in the right groin. It is unclear if this was a skin lesion versus edema versus a skin cyst. The decision was made to excise this skin lesion and leave the area open for packing. I explained the procedure, expected perioperative course, and the risks. She verbalized understanding and wishes to proceed. PROCEDURE IN DETAIL: The patient was brought to the OR and placed on the OR table in supine position. A time-out was completed verifying the patient's name, age, date of , allergies, and procedure to be performed. General LMA anesthesia was induced. The patient's groin and genitalia were then prepped and draped in usual standard fashion. I measured the area of thickness on the skin. It measured approximately 8 x 6 mm in size. I anesthetized the area with a combination of 1% lidocaine plain and 0.5% Marcaine plain. An elliptical incision was made around the skin lesion using a 15 blade. Electrocautery was used to dissect down to the level of subcutaneous fat. I elevated the skin lesion and undermined it. I made sure to take a layer of fat with the ellipse of skin. The tissue was then placed on the back table and measured. This measured 1 cm x 1 cm x 0.8 mm. It was sent to Pathology, labeled as right groin skin lesion. Hemostasis was achieved with electrocautery, and the area was irrigated with normal saline. It was packed with quarter-inch packing strip and covered with dry 4 x 4 piece of gauze. It was then secured in place with tape. The patient tolerated the procedure well and was transferred to the PACU in stable condition. All counts were complete and correct at the end of the case. BEVERLY CRYSTAL /[id number]
[2020-10-25 15:59] VITALS: BP 109/54; PULSE 84
== END 2020-10-25 14:43 | disposition home or self-care (01) ==
LOC: MW.SDS 09:19
PROVIDERS: ATTEND Surgery
DX: L72.0 Epidermal cyst (principal); G89.29 Other chronic pain; D50.9 Iron deficiency anemia, unspecified; E66.01 Morbid (severe) obesity due to excess calories; E03.9 Hypothyroidism, unspecified; G47.30 Sleep apnea, unspecified; F17.210 Nicotine dependence, cigarettes, uncomplicated; Z88.0 Allergy status to penicillin; Z88.8 Allergy status to other drugs, medicaments and biological substances; Z79.899 Other long term (current) drug therapy; Z98.890 Other specified postprocedural states; Z68.41 Body mass index [BMI] 40.0-44.9, adult
CPT/HCPCS: 11401; 81025; 88304; J1885; J2250; J2405; J2704; J3010; J3490; J7120; 00400

== ENCOUNTER 2020-11-07 19:28 | Emergency (ER) | payer MEDICAID ==
[2020-11-07] MEDS ORDERED: Metoclopramide 10 MG/2 ML SDV IVPUSH ONE (19:58)
[2020-11-07] MEDS ORDERED: diphenhydrAMINE 50 MG/ML SDV IVPUSH ONE ×2 (19:58→20:44)
--- NOTE | 2020-11-07 20:05 | EDM.PDOC ---
ED HPI GENERAL MEDICAL PROBLEM - General Chief Complaint: General Stated Complaint: SEIZURES Time Seen by Provider: 11/07/20 19:30 - History of Present Illness INITIAL COMMENTS - FREE TEXT/NARRATIVE: 40-year-old female with a history of nonepileptic seizure, conversion disorder, PTSD who is presenting with severe bilateral frontal and right temporal headache associated with bilateral ear pressure sore throat and nasal congestion. Patient also reports waves of "hot flashes." The patient interprets is similar to her prior nonepileptic seizures. No urinary or bowel incontinence no periods of loss time no episodes of loss of consciousness. No fevers. Exacerbated by bright lights no alleviating factors no radiation or other associated symptoms. Denies prior history of migraines. Anterior Head Pain Score (Numeric/FACES): 10 - Related Data Allergies Allergy/AdvReac Type Severity Reaction Status Date / Time divalproex sodium Allergy Change Verified 11/07/20 19:39 [From Depakote] Mental Status fluoxetine HCl [From Prozac] Allergy Change Verified 11/07/20 19:39 Mental Status Penicillins Allergy Difficulty Verified 11/07/20 19:39 Breathing Dtp Shot Allergy Seizure Uncoded 11/07/20 19:39 Home Meds: Home Meds Gabapentin [Neurontin] 600 mg PO TID 07/02/20 [History] Blue-Green Algae [Spirulina] 500 mg PO DAILY 10/24/20 [History] Cholecalciferol (Vitamin D3) [Vitamin D3] 1,000 unit PO DAILY 10/24/20 [History] Chorella 1 cap PO DAILY 10/24/20 [History] Echinacea 400 mg PO BID 10/24/20 [History] Folic Acid 0.8 mg PO DAILY 10/24/20 [History] Glucosam/Chond-Msm1/C/Brian/Bor [Wfbngcr-Gakhv-LOD Complex Cplt] 1 cap PO DAILY 10/24/20 [History] Melatonin 10 mg PO DAILY 10/24/20 [History] Calcium Carbonate/Vitamin D3 [Super Calcium 600-Vit D3 400] 1 each PO ASDIRECTED 10/25/20 [History] DULoxetine [Cymbalta] 1 tab PO DAILY 10/25/20 [History] Oxybutynin [Oxybutynin ER] 5 mg PO DAILY 10/25/20 [History] Sulfamethoxazole/Trimethoprim [Bactrim Ds Tablet] 1 each PO BID 10/25/20 [History] Tumeric Curcumin 1 tab PO ASDIRECTED 10/25/20 [History] traZODone 50 mg PO BEDTIME 10/25/20 [History] Past Medical History - Past Health History Medical/Surgical History: Denies Medical/Surgical History HEENT History: Reports: None Cardiovascular History: Reports: Other (See Below) Other Cardiovascular History: has "palpitations" Respiratory History: Reports: None Other Respiratory History: had "walking pneumonia" Gastrointestinal History: Reports: None Other Gastrointestinal History: pyelonephritis Genitourinary History: Reports: Renal Calculus Other Genitourinary History: hx of passing 1 kidney stone SEASONAL WAREHOUSE ASSOCIATE History: Reports: Polycystic Ovaries, Other SEASONAL WAREHOUSE ASSOCIATE History: cyst on right ovary Musculoskeletal History: Reports: Back Pain, Chronic, Fibromyalgia, Osteoarthritis, Other (See Below) Other Musculoskeletal History: uses a cane to walk because of Conversion disorder, hx of Raynauds- only takes Nifedipine during the winter months Neurological History: Reports: Seizure Other Neuro History: hx of juvenile seizures- none since age 23 Psychiatric History: Reports: Depression, Other (See Below) Other Psychiatric History: 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 Endocrine/Metabolic History: Reports: Obesity/BMI 30+ Other Endocrine/Metabolic History: "mild hypothyroid" Insulin Pump Model and Dining Room Host/Hostess: None Hematologic History: Reports: None Immunologic History: Reports: None Oncologic (Cancer) History: Reports: None Dermatologic History: Reports: Eczema Other Dermatologic History: Eczema - Infectious Disease History Infectious Disease History: Reports: Chicken Pox - Past Surgical History Head Surgeries/Procedures: Reports: None HEENT Surgical History: Reports: None Cardiovascular Surgical History: Reports: None Respiratory Surgical History: Reports: None GI Surgical History: Reports: None Female Surgical History: Reports: Section, Tubal Ligation Other Female Surgeries/Procedures: x2 Endocrine Surgical History: Reports: None Neurological Surgical History: Reports: None Musculoskeletal Surgical History: Reports: None Oncologic Surgical History: Reports: None Dermatological Surgical History: Reports: None Social & Family History - Family History Family Medical History: No Pertinent Family History - Tobacco Use Tobacco Use Status *Q: Never Tobacco User - Caffeine Use Caffeine Use: Reports: None - Recreational Drug Use Recreational Drug Use: No ED ROS GENERAL - Review of Systems Review Of Systems: See Below Free Text/Narrative/Comment: General: No fever. Skin: No rash. Eyes: No vision problems. ENT: Per HPI Neck: No neck stiffness. Respiratory: No shortness of breath. Cardiac: No chest pain. Gastrointestinal: No nausea, vomiting or abdominal pain. Urinary: No dysuria. Musculoskeletal: No myalgias/arthralgias. Neurologic: Per HPI ED EXAM, GENERAL - Physical Exam Exam: See Below Free Text/Narrative:: General Appearance: No acute distress, appears comfortable Skin: No rash HEENT: Normocephalic/atraumatic, sclera anicteric, mucous membranes moist, TMs with serous effusions bilaterally, no tonsillar exudate no trismus no sublingual or submental swelling Neck: Normal range of motion Chest and Lungs: Bilateral breath sounds, clear to auscultation Cardiovascular: Regular rate and rhythm, no murmur Abdomen: Soft, non-tender Back: Normal Musculoskeletal: No edema or tenderness Neurologic: Awake, alert, no obvious deficits, moving all extremities, extraocular movements intact 5 out of 5 strength bilateral upper and lower extremities sensation grossly intact Psychiatric: Appropriate, cooperative Course - Vital Signs Last Recorded V/S: Last Vital Signs Temp 97.2 F 11/07/20 19:39 Pulse 92 11/07/20 22:49 Resp 16 11/07/20 22:49 BP 111/54 L 11/07/20 22:49 Pulse Ox 96 11/07/20 22:49 - Orders/Labs/Meds Labs: Laboratory Tests 11/07/20 11/07/20 11/07/20 Range/Units 20:20 20:20 20:20 WBC 11.72 H (4.0-11.0) K/uL RBC 4.43 (4.30-5.90) M/uL Hgb 13.3 (12.0-16.0) g/dL Hct 40.8 (36.0-46.0) % MCV 92.1 (80.0-98.0) fL MCH 30.0 (27.0-32.0) pg MCHC 32.6 (31.0-37.0) g/dL RDW Std Deviation 45.9 (28.0-62.0) fl RDW Coeff of Arpit 14 (11.0-15.0) % Plt Count 391 (150-400) K/uL MPV 10.90 (7.40-12.00) fL Neut % (Auto) 57.3 (48.0-80.0) % Lymph % (Auto) 27.5 (16.0-40.0) % Appling % (Auto) 9.0 (0.0-15.0) % Eos % (Auto) 5.3 (0.0-7.0) % Baso % (Auto) 0.9 (0.0-1.5) % Neut # (Auto) 6.7 H (1.4-5.7) K/uL Lymph # (Auto) 3.2 H (0.6-2.4) K/uL Appling # (Auto) 1.1 H (0.0-0.8) K/uL Eos # (Auto) 0.6 (0.0-0.7) K/uL Baso # (Auto) 0.1 (0.0-0.1) K/uL Nucleated RBC % 0.0 /100WBC Nucleated RBCs # 0 K/uL Sodium 146 H (136-145) mmol/L Potassium 4.0 (3.5-5.1) mmol/L Chloride 109 H (98-107) mmol/L Carbon Dioxide 26.4 (21.0-32.0) mmol/L BUN 16 (7.0-18.0) mg/dL Creatinine 0.9 (0.6-1.0) mg/dL Est Cr Clr Drug Dosing 79.34 mL/min Estimated GFR (MDRD) > 60.0 ml/min Glucose 117 H (74-106) mg/dL Calcium 9.0 (8.5-10.1) mg/dL HCG, Qual NEGATIVE (NEG) Meds: Medications Discontinued Medications Generic Name Dose Route Start Last Admin Trade Name Freq PRN Reason Stop Dose Admin Diphenhydramine HCl 25 mg 11/07/20 19:58 11/07/20 20:22 Diphenhydramine 50 Mg/Ml Sdv IVPUSH 11/07/20 19:59 25 mg ONETIME ONE Administration Diphenhydramine HCl 25 mg 11/07/20 20:44 11/07/20 20:57 Diphenhydramine 50 Mg/Ml Sdv IVPUSH 11/07/20 20:45 25 mg ONETIME ONE Administration Lorazepam 2 mg 11/07/20 20:43 11/07/20 20:57 Lorazepam 2 Mg/Ml Sdv IVPUSH 11/07/20 20:44 2 mg ONETIME ONE Administration Metoclopramide HCl 10 mg 11/07/20 19:58 11/07/20 20:22 Metoclopramide 10 Mg/2 Ml Sdv IVPUSH 11/07/20 19:59 10 mg ONETIME ONE Administration Departure - Departure Time of Disposition: 23:20 Disposition: Home, Self-Care 01 Condition: Good Clinical Impression: Migraine headache - Discharge Information *PRESCRIPTION DRUG MONITORING PROGRAM REVIEWED*: Not Applicable *COPY OF PRESCRIPTION DRUG MONITORING REPORT IN PATIENT CYNTHIA: Not Applicable Instructions: Migraine Headache Referrals: Sendy Blevins, [Primary Care Provider] - Forms: ED Department Discharge Additional Instructions: The CT scan of your brain and blood work today was good. Your symptoms are most likely related to a migraine headache. You can take [id number] pain medication as you need to over the next couple days for headache. If your symptoms worsen or you have any other new symptoms of concern you please call your doctor or return to the ER. The following information is given to patients seen in the emergency department who are being discharged to home. This information is to outline your options for follow-up care. We provide all patients seen in our emergency department with a follow-up referral. The need for follow-up, as well as the timing and circumstances, are variable depending upon the specifics of your emergency department visit. If you don't have a primary care physician on staff, we will provide you with a referral. We always advise you to contact your personal physician following an emergency department visit to inform them of the circumstance of the visit and for follow-up with them and/or the need for any referrals to a consulting specialist. The emergency department will also refer you to a specialist when appropriate. This referral assures that you have the opportunity for follow-up care with a specialist. All of these measure are taken in an effort to provide you with optimal care, which includes your follow-up. Under all circumstances we always encourage you to contact your private physician who remains a resource for coordinating your care. When calling for follow-up care, please make the office aware that this follow-up is from your recent emergency room visit. If for any reason you are refused follow-up, please contact the [facility] Emergency Department at and asked to speak to the emergency department charge nurse. Sepsis Event Note (ED) - Evaluation Sepsis Screening Result: No Definite Risk - Focused Exam Vital Signs: Vital Signs Temp Pulse Resp BP Pulse Ox 11/07/20 22:49 92 16 111/54 L 96 11/07/20 22:22 100 105/45 L 96 11/07/20 20:59 94 18 147/79 H 94 L 11/07/20 19:39 97.2 F 110 H 20 129/90 98 - Assessment/Plan Assessment:: 40-year-old female present with signs symptoms most consistent with viral URI leading to associated migraine. Neurologic exam is nonfocal patient is without history of severe similar headaches in the past and for this reason CT scan has been ordered. I do not concern for meningitis encephalitis at this point no findings of deep space neck infection. Labs are pending Reglan Benadryl for symptoms and will reassess. 2047: Pt ambulated well to the bathroom. However, pt now with signs of akathesia and feels like she's having a panic attack. Will give 2mg ativan and additional 25mg benadryl. 2199: CT scan of the brain is normal. On reassessment patient is resting comfortably symptoms appear to be resolved. We will reevaluate when awake. Hopeful for discharge. Symptoms improved with treatment ambulatory with a steady gait patient discharged.
[2020-11-07 20:41] LABS: BLOOD UREA NITROGEN,BUN 16 mg/dL (7.0-18.0); CARBON DIOXIDE,CO2 26.4 mmol/L (21.0-32.0); CHLORIDE,CL 109 mmol/L (98-107); GLUCOSE RANDOM 117 mg/dL (74-106); SODIUM,NA 146 mmol/L (136-145)
[2020-11-07] MEDS ORDERED: LORazepam 2 MG/ML SDV IVPUSH ONE (20:43)
--- NOTE | 2020-11-07 21:57 | CT ---
INDICATION: Headache. TECHNIQUE: CT head without IV contrast. COMPARISON: CT head 08/24/2018. FINDINGS: No intracranial hemorrhage, edema, or mass effect. Remainder negative. IMPRESSION: No acute or significant intracranial pathology. Please note that all CT scans at this facility use dose modulation, iterative reconstruction, and/or weight-based dosing when appropriate to reduce radiation dose to as low as reasonably achievable. Dictated by Alfonso Menezes MD @ 11/07/2020 9:56:[address] Alfonso Menezes @ Nov 07 2020 9:56PM
[2020-11-07 23:25] VITALS: BP 111/54; PULSE 92
== END 2020-11-07 22:49 | disposition home or self-care (01) ==
LOC: MW.ED 19:28
DX: G43.909 Migraine, unspecified, not intractable, without status migrainosus (principal); E03.9 Hypothyroidism, unspecified; E66.9 Obesity, unspecified; Z88.0 Allergy status to penicillin; Z88.7 Allergy status to serum and vaccine; Z88.5 Allergy status to narcotic agent; Z79.899 Other long term (current) drug therapy; Z68.41 Body mass index [BMI] 40.0-44.9, adult
CPT/HCPCS: 36415; 70450; 80048; 84703; 85025; 96374; 96375; 96376; 99284; J1200; J2060; J2765

== ENCOUNTER 2020-12-04 12:03 | Emergency (ER) | payer MEDICAID, SELFPAY ==
--- NOTE | 2020-12-04 14:46 | CR ---
INDICATION: Right sided rib pain for 3 days after rib injury TECHNIQUE: Chest radiograph, Rib radiographs 3 views right COMPARISON: 04/10/2020 FINDINGS: Moderate degradation of image quality noted due to body habitus. Mediastinum: The mediastinum is normal in appearance. The heart silhouette is normal in size and morphology. Lung: Both lungs are unremarkable in appearance. No sign of pleural effusion seen. No pneumothorax is identified. Ribs and bones: No definite acute rib fractures are identified in the visualized ribs. The remaining osseous structures are unremarkable for age. Soft tissue: Unremarkable. IMPRESSION: 1. No acute cardiopulmonary disease is seen. No acute rib injuries noted. Dictated by: Floyd Don MD @ 12/04/2020 14:44:24 (Electronically Signed)
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
[2020-12-04 15:16] VITALS: BP 99/57; PULSE 78
== END 2020-12-04 15:16 | disposition home or self-care (01) ==
LOC: MW.ED 12:03
DX: S20.211A Contusion of right front wall of thorax, initial encounter (principal); E66.9 Obesity, unspecified; E03.9 Hypothyroidism, unspecified; Z68.30 Body mass index [BMI] 30.0-30.9, adult; Z72.0 Tobacco use; Y04.0XXA Assault by unarmed brawl or fight, initial encounter
CPT/HCPCS: 71101-26-RT; 71101-RT; 99283

== ENCOUNTER 2021-03-10 12:40 | Emergency (ER) | payer MEDICAID | END 2021-03-10 13:23 | disposition left against medical advice (07) | LOC: MW.ED 12:40 | DX: Z53.21 Procedure and treatment not carried out due to patient leaving prior to being seen by health care provider (principal) ==

== ENCOUNTER 2021-03-12 22:05 | Emergency (ER) | payer MEDICAID ==
[2021-03-12 22:27] VITALS: PULSE 82
--- NOTE | 2021-03-13 00:29 | EDM.PDOC ---
ED HPI GENERAL MEDICAL PROBLEM - General Chief Complaint: Respiratory Problem Stated Complaint: CHEST PAIN, NAUSEA Time Seen by Provider: 03/13/21 00:06 - History of Present Illness INITIAL COMMENTS - FREE TEXT/NARRATIVE: HISTORY AND PHYSICAL: History of present illness: This is a 41-year-old female reports she has a history significant for a conversion disorder in the past who presents ER today with tactile fevers, cough, congestion, sore throat, myalgias times several days. Patient reports that she has sinus drainage and cough. Patient reports has been tolerating p.o. solids and liquids well. Patient denies any vomiting or diarrhea. Patient denies any abdominal pain or discomfort. Patient has any dysuria, frequency, urgency. Review of systems: As per history of present illness and below otherwise all systems reviewed and negative. Past medical history: As per history of present illness and as reviewed below otherwise noncontributory. Surgical history: As per history of present illness and as reviewed below otherwise noncontributory. Social history: No reported history of drug abuse. Family history: As per history of present illness and as reviewed below otherwise noncontributory. Physical exam: This patient was seen and evaluated during the 2019 SARS-CoV-2 novel coronavirus pandemic period. Community viral transmission is ongoing at time of this encounter and the emergency department is operating under pandemic response procedures. Constitutional: Patient is oriented to person, place, and time. Appears well- developed and well-nourished. No distress. HEENT: Moist mucous membranes Head: Normocephalic and atraumatic Eyes: Right eye exhibits no discharge. Left eye exhibits no discharge. No scleral icterus Neck: Normal range of motion. No tracheal deviation present. Cardiovascular: Normal rate and regular rhythm. Pulmonary: Effort normal, no respiratory distress. Abdominal: No distention Musculoskeletal: Normal range of motion Neurologic: Alert and oriented to person, place and time. Skin: [place], warm and dry. Psychiatric: Normal mood and affect. Behavior is normal. Judgment and thought content normal. Nursing note and vital signs have been reviewed Diagnostics: Covid test negative Pulse ox 98% on room air Therapeutics: NSS x500 cc Assessment and plan: 41-year-old female who presents ER today secondary to sinus symptoms consistent with possible Covid infection versus a viral URI versus sinusitis. Patient's Covid test is negative. Patient is resting antibiotics to assist her with a possible sinus infection. Patient reports her roommate has similar symptoms. Patient be given a prescription for Zithromax and instructed to follow-up with her primary care physician next week. Reassessment at the time of disposition demonstrates that the patient is in no acute distress. The patient has remained stable throughout the entire ED visit and is without objective evidence for acute process requiring urgent intervention or hospitalization. The patient is stable for discharge, counseling is provided as documented above, discussed symptomatic treatment and specific conditions for return. I have spoken with the patient/caregiver and discussed todays findings, in addition to providing specific details for the plan of care. Questions are answered and there is agreement with the plan. Definitive disposition and diagnosis as appropriate pending reevaluation and review of above. Treatments BUSINESS INFORMATION ANALYST: Reports: IV/IO, Other Medication(s), Other (see below) Other Treatments BUSINESS INFORMATION ANALYST: 4 mg zofran, 500 mL bag NS Upper Abdomen Pain Score (Numeric/FACES): 6 - Related Data Allergies Allergy/AdvReac Type Severity Reaction Status Date / Time divalproex sodium Allergy Change Verified 03/12/21 22:28 [From Depakote] Mental Status fluoxetine HCl [From Prozac] Allergy Change Verified 03/12/21 22:28 Mental Status Penicillins Allergy Difficulty Verified 03/12/21 22:28 Breathing Dtp Shot Allergy Seizure Uncoded 03/12/21 22:28 Home Meds: Home Meds Gabapentin [Neurontin] 900 mg PO TID 07/02/20 [History] Blue-Green Algae [Spirulina] 500 mg PO DAILY 10/24/20 [History] Cholecalciferol (Vitamin D3) [Vitamin D3] 1,000 unit PO DAILY 10/24/20 [History] Chorella 1 cap PO DAILY 10/24/20 [History] Echinacea 400 mg PO BID 10/24/20 [History] Folic Acid 0.8 mg PO DAILY 10/24/20 [History] Glucosam/Chond-Msm1/C/Brian/Bor [Kkivfzc-Ecuoa-OQG Complex Cplt] 1 cap PO DAILY 10/24/20 [History] Melatonin 10 mg PO DAILY 10/24/20 [History] Calcium Carbonate/Vitamin D3 [Super Calcium 600-Vit D3 400] 1 each PO ASDIRECTED 10/25/20 [History] Tumeric Curcumin 1 tab PO ASDIRECTED 10/25/20 [History] traZODone 50 mg PO BEDTIME 10/25/20 [History] Past Medical History - Past Health History Medical/Surgical History: Denies Medical/Surgical History HEENT History: Reports: None Cardiovascular History: Reports: Other (See Below) Other Cardiovascular History: has "palpitations" Respiratory History: Reports: None Other Respiratory History: had "walking pneumonia" Gastrointestinal History: Reports: Other (See Below) Other Gastrointestinal History: pyelonephritis Genitourinary History: Reports: Renal Calculus Other Genitourinary History: hx of passing 1 kidney stone [employer] History: Reports: Polycystic Ovaries, Other [employer] History: cyst on right ovary Musculoskeletal History: Reports: Back Pain, Chronic, Fibromyalgia, Osteoarthritis, Other (See Below) Other Musculoskeletal History: uses a cane to walk because of Conversion disorder, hx of Raynauds- only takes Nifedipine during the winter months Neurological History: Reports: Seizure Other Neuro History: hx of juvenile seizures- none since age 23 Psychiatric History: Reports: Depression, Other (See Below) Other Psychiatric History: 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 Endocrine/Metabolic History: Reports: Obesity/BMI 30+ Other Endocrine/Metabolic History: "mild hypothyroid" Insulin Pump Model and Cytopathology Technologist: None Hematologic History: Reports: None Immunologic History: Reports: None Oncologic (Cancer) History: Reports: None Dermatologic History: Reports: Eczema Other Dermatologic History: Eczema - Infectious Disease History Infectious Disease History: Reports: Chicken Pox - Past Surgical History Head Surgeries/Procedures: Reports: None HEENT Surgical History: Reports: None Cardiovascular Surgical History: Reports: None Respiratory Surgical History: Reports: None GI Surgical History: Reports: None Female Surgical History: Reports: Section, Tubal Ligation Other Female Surgeries/Procedures: x2 Endocrine Surgical History: Reports: None Neurological Surgical History: Reports: None Musculoskeletal Surgical History: Reports: None Oncologic Surgical History: Reports: None Dermatological Surgical History: Reports: None Social & Family History - Family History Family Medical History: No Pertinent Family History - Tobacco Use Tobacco Use Status *Q: Never Tobacco User Second Hand Smoke Exposure: No - Caffeine Use Caffeine Use: Reports: Coffee - Recreational Drug Use Recreational Drug Use: No ED ROS GENERAL - Review of Systems Review Of Systems: See Below ED EXAM, GENERAL - Physical Exam Exam: See Below Course - Vital Signs Last Recorded V/S: Last Vital Signs Temp 97.6 F 09/05/21 22:25 Pulse 82 03/12/21 22:25 Resp 18 03/12/21 22:25 BP 143/80 H 03/12/21 22:25 Pulse Ox 98 03/12/21 22:25 - Orders/Labs/Meds Labs: Laboratory Tests 03/12/21 Range/Units 10:36 SARS-CoV-2 RNA (FERCHO) NEGATIVE (NEGATIVE) Departure - Departure Time of Disposition: 00:27 Disposition: Home, Self-Care 01 Condition: Good Clinical Impression: Sinusitis - Discharge Information Instructions: Sinusitis, Adult, [id number] Referrals: Sam Ye MD [Primary Care Provider] - Additional Instructions: You were seen and evaluated today secondary to signs and symptoms consistent with possible sinusitis. Your Covid test is negative. You will get started on an antibiotic to treat a sinus infection. This will be sent to our [employer] system since all the pharmacies are closed tomorrow. You may take Tylenol/ibuprofen as needed for muscle aches and fevers. Please make an appointment see your family doctor next week. The following information is given to patients seen in the emergency department who are being discharged to home. This information is to outline your options for follow-up care. We provide all patients seen in our emergency department with a follow-up referral. The need for follow-up, as well as the timing and circumstances, are variable depending upon the specifics of your emergency department visit. If you don't have a primary care physician on staff, we will provide you with a referral. We always advise you to contact your personal physician following an emergency department visit to inform them of the circumstance of the visit and for follow-up with them and/or the need for any referrals to a consulting specialist. The emergency department will also refer you to a specialist when appropriate. This referral assures that you have the opportunity for follow-up care with a specialist. All of these measure are taken in an effort to provide you with optimal care, which includes your follow-up. Under all circumstances we always encourage you to contact your private physician who remains a resource for coordinating your care. When calling for follow-up care, please make the office aware that this follow-up is from your recent emergency room visit. If for any reason you are refused follow-up, please contact the [facility] Department at and asked to speak to the emergency department charge nurse. [facility] [address], [place] [address] [facility] [address] [place] [id number] Sepsis Event Note (ED) - Focused Exam Vital Signs: Vital Signs Temp Pulse Resp BP Pulse Ox 03/12/21 22:25 97.6 F 82 18 143/80 H 98
[2021-03-13 00:46] VITALS: BP 121/51
== END 2021-03-13 00:41 | disposition home or self-care (01) ==
LOC: MW.ED 22:05
DX: J32.9 Chronic sinusitis, unspecified (principal); E66.9 Obesity, unspecified; Z68.30 Body mass index [BMI] 30.0-30.9, adult; Z20.822 Contact with and (suspected) exposure to COVID-19; Z88.0 Allergy status to penicillin; Z88.7 Allergy status to serum and vaccine; Z88.8 Allergy status to other drugs, medicaments and biological substances
CPT/HCPCS: 99284; U0002

== ENCOUNTER 2021-06-29 19:51 | Emergency (ER) | payer MEDICAID ==
[2021-06-29 20:45] LABS: BLOOD UREA NITROGEN,BUN 16 mg/dL (7.0-18.0); CARBON DIOXIDE,CO2 24.5 mmol/L (21.0-32.0); CHLORIDE,CL 104 mmol/L (98-107); GLUCOSE RANDOM 133 mg/dL (74-106); POTASSIUM,K 3.9 mmol/L (3.5-5.1); SODIUM,NA 140 mmol/L (136-145)
[2021-06-29] MEDS ORDERED: Acetaminophen 500 MG Tab PO ONE (20:48)
--- NOTE | 2021-06-29 20:49 | EDM.PDOC ---
ED HPI GENERAL MEDICAL PROBLEM - General Chief Complaint: General Stated Complaint: POSSIBLE SEIZURE Time Seen by Provider: 06/29/21 20:07 - History of Present Illness INITIAL COMMENTS - FREE TEXT/NARRATIVE: CHIEF COMPLAINT(S): "I have conversion disorder." HISTORY OF PRESENT ILLNESS: This is a 38-year-old woman with a reported past medical history of conversion disorder who comes to the emergency department with a chief complaint of "I have conversion disorder." The patient states "I have conversion disorder." And Dr. Manuel is my physician. She states that he was giving her 1800 mg of gabapentin per day to help with her chronic pain however she just recently switched from this primary care physician to a physician at [facility] in [place] who recommended that she stop her gabapentin and would not refill the gabapentin prescription. She states that she has not taken gabapentin in the last 3 days and she is feeling fatigued, and slept all day. She states it is hard to think and hard to move. She states sukhwinder t she is experiencing a mild bifrontal headache not associated with any blurry vision, double vision, numbness, tingling. She states that she is also experiencing nausea. She states that the headache was gradual and not sudden onset severe. She denies any chest pain or shortness of breath and she states that she recently got some CBD oil to try and treat her pain and she does not know if this is a reaction to that. She denies any itching, swollen throat, drooling, wheezing. REVIEW OF SYSTEMS: Constitutional: Positive for fatigue. Denies fever, chills. Eyes: Denies eye pain Ears, Nose, Mouth, & Throat: Denies earache Cardiovascular: Denies chest pain Respiratory: Denies shortness of breath Gastrointestinal: Positive for nausea. Denies vomiting, diarrhea, medic easier, melena, hematemesis. Genitourinary: Denies hematuria Skin:Denies a rash MSK: Denies joint pain Neurological: Positive for headache. Denies blurred vision, numbness, tingling, weakness Psychiatric: Positive for conversion disorder PAST MEDICAL HISTORY: As per history of present illness and as reviewed below otherwise noncontributory. SURGICAL HISTORY: As per history of present illness and as reviewed below otherwise noncontributory. SOCIAL HISTORY: As per history of present illness and as reviewed below otherwise noncontributory. FAMILY HISTORY: As per history of present illness and as reviewed below otherwise noncontributory. EXAMINATION OF ORGAN SYSTEMS/BODY AREAS: Constitutional: Blood pressure is 147/72, heart rate 92, respiratory rate 18 with an oxygen saturation 98% on room air. Temperature 37.3 General: Well-appearing woman who is in no acute distress Psychiatric: Appropriate mood and affect. Eyes: No scleral icterus or conjunctival erythema ENMT: Moist mucous membranes. No pharyngeal erythema tongue protrudes midline. No tongue laceration. Cardiovascular: Regular, rate, and rhythm. No gallops, murmurs, or rubs. Bilateral upper extremity pulses symmetric and intact. No peripheral edema. No JVD. Respiratory: Lungs clear to auscultation bilaterally. No wheezes, rales, or rhonchi. Gastrointestinal: Soft, non-tender, non-distended. Normoactive bowel sounds Genitourinary: No suprapubic tenderness Musculoskeletal: Normal range of motion. Skin: No lesions or abrasions. Neurological: Alert, GCS 15 strength and sensation grossly intact in upper and lower extremities bilaterally. Gait Normal MEDICAL DECISION MAKING AND COURSE IN THE ED WITH INTERPRETATION/REVIEW OF DIAGNOSTIC STUDIES: This is a 41-year-old woman with a past medical history of conversion disorder who comes to the emergency department with fatigue, headache and nausea who has normal vital signs at this time. Per triage report initial complaint was seizure. The patient denies any seizure and states that she is just feeling sluggish and tired after she has not had gabapentin. Gabapentin typically causes sedation this is unlikely any sort of gabapentin withdrawal. Will obtain screening labs and a Covid swab. We will provide the patient with Tylenol for pain relief. I did discuss with her that given that she just recently started taking CBD and she is feeling fatigued and sleepy that she should refrain from using this if she is concerned that it may be causing the symptoms. Laboratory: CBC reveals a mild leukocytosis 11.81 otherwise unremarkable. CMP is unremarkable. Lactic acid is normal at 1.7. According to the [place] prescription drug monitoring the patient failed a prescription of gabapentin 300 mg capsules 40 tablets on June 28, 2021 which is yesterday. Upon confronting the patient the patient states that "I told him to go fuck himself." She states he told her that he would give her 1200mg of gabapentin but that he was uncomfortable prescribing this medication to her. Per the report it does appear that the patient was prescribed [address] Manuel with last fill date of January 10, 2021. Given this the patient has not had gabapentin for months if she was taking it as prescribed. Given this finding it is unlikely that the patient is experiencing any sort of withdrawal from gabapentin is low risk for actual withdrawal seizure from gabapentin. Patient has no laboratory evidence for seizure either. Patient is not postictal. She has no other evidence of seizure on examination such as urinary incontinence or tongue biting. RN notified me that the patient ripped out her IV and wants to go home. The patient did not want an EKG at this time. At this time I do believe the patient is stable for discharge as evident by her normal labs and normal vital signs. I did discuss with her that she need to follow-up with her primary care physician for further discussion about gabapentin and her prescriptions. She was amenable discharge had no further question Laboratory: Covid and influenza are negative DISPOSITION: The patient was discharged home in stable condition. The patient will follow up with primary care physician in 3 to 5 days for reevaluation CONDITION: Fair PROCEDURES: None FINAL IMPRESSION(S)/DIAGNOSES: 1. Acute fatigue Mark Perry M.D. - Related Data Allergies Allergy/AdvReac Type Severity Reaction Status Date / Time divalproex sodium Allergy Change Verified 06/29/21 20:06 [From Depakote] Mental Status fluoxetine HCl [From Prozac] Allergy Change Verified 06/29/21 20:06 Mental Status Penicillins Allergy Difficulty Verified 06/29/21 20:06 Breathing Dtp Shot Allergy Seizure Uncoded 06/29/21 20:06 Home Meds: Home Meds Gabapentin [Neurontin] 900 mg PO TID 07/02/20 [History] Blue-Green Algae [Spirulina] 500 mg PO DAILY 10/24/20 [History] Cholecalciferol (Vitamin D3) [Vitamin D3] 1,000 unit PO DAILY 10/24/20 [History] Chorella 1 cap PO DAILY 10/24/20 [History] Echinacea 400 mg PO BID 10/24/20 [History] Folic Acid 0.8 mg PO DAILY 10/24/20 [History] Glucosam/Chond-Msm1/C/Brian/Bor [Tjgyasa-Anzvh-JHR Complex Cplt] 1 cap PO DAILY 10/24/20 [History] Melatonin 10 mg PO DAILY 10/24/20 [History] Calcium Carbonate/Vitamin D3 [Super Calcium 600-Vit D3 400] 1 each PO ASDIRECTED 10/25/20 [History] Tumeric Curcumin 1 tab PO ASDIRECTED 10/25/20 [History] traZODone 50 mg PO BEDTIME 10/25/20 [History] Azithromycin [Zithromax] 250 mg PO DAILY #5 tablet 03/13/21 [Rx] Past Medical History - Past Health History Medical/Surgical History: Denies Medical/Surgical History HEENT History: Reports: None Cardiovascular History: Reports: Other (See Below) Other Cardiovascular History: has "palpitations" Respiratory History: Reports: None Other Respiratory History: had "walking pneumonia" Gastrointestinal History: Reports: Other (See Below) Other Gastrointestinal History: pyelonephritis Genitourinary History: Reports: Renal Calculus Other Genitourinary History: hx of passing 1 kidney stone [employer] History: Reports: Polycystic Ovaries, Other [employer] History: cyst on right ovary Musculoskeletal History: Reports: Back Pain, Chronic, Fibromyalgia, Osteoarthritis, Other (See Below) Other Musculoskeletal History: uses a cane to walk because of Conversion disorder, hx of Raynauds- only takes Nifedipine during the winter months Neurological History: Reports: Seizure Other Neuro History: hx of juvenile seizures- none since age 23 Psychiatric History: Reports: Depression, Other (See Below) Other Psychiatric History: 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 Endocrine/Metabolic History: Reports: Obesity/BMI 30+ Other Endocrine/Metabolic History: "mild hypothyroid" [facility] Director: N/A Hematologic History: Reports: None Immunologic History: Reports: None Oncologic (Cancer) History: Reports: None Dermatologic History: Reports: Eczema Other Dermatologic History: Eczema - Infectious Disease History Infectious Disease History: Reports: Chicken Pox - Past Surgical History Head Surgeries/Procedures: Reports: None HEENT Surgical History: Reports: None Cardiovascular Surgical History: Reports: None Respiratory Surgical History: Reports: None GI Surgical History: Reports: None Female Surgical History: Reports: Section, Tubal Ligation Other Female Surgeries/Procedures: Endocrine Surgical History: Reports: None Neurological Surgical History: Reports: None Musculoskeletal Surgical History: Reports: None Oncologic Surgical History: Reports: None Dermatological Surgical History: Reports: None Social & Family History - Family History Family Medical History: No Pertinent Family History - Caffeine Use Caffeine Use: Reports: Coffee, Energy Drinks, Soda, Tea - Recreational Drug Use Recreational Drug Use: No ED ROS GENERAL - Review of Systems Review Of Systems: See Below ED EXAM, GENERAL - Physical Exam Exam: See Below Course - Vital Signs Last Recorded V/S: Last Vital Signs Temp 37.6 C 06/29/21 21:01 Pulse 92 06/29/21 20:00 Resp 18 06/29/21 20:00 BP 147/72 H 06/29/21 20:00 Pulse Ox 98 06/29/21 20:00 - Orders/Labs/Meds Labs: Laboratory Tests 06/29/21 06/29/21 06/29/21 Range/Units 20:10 20:10 20:30 WBC 11.81 H (4.0-11.0) K/uL RBC 4.76 (4.30-5.90) M/uL Hgb 14.2 (12.0-16.0) g/dL Hct 42.6 (36.0-46.0) % MCV 89.5 (80.0-98.0) fL MCH 29.8 (27.0-32.0) pg MCHC 33.3 (31.0-37.0) g/dL RDW Std Deviation 46.5 (28.0-62.0) fl RDW Coeff of Arpit 14 (11.0-15.0) % Plt Count 376 (150-400) K/uL MPV 10.40 (7.40-12.00) fL Neut % (Auto) 58.1 (48.0-80.0) % Lymph % (Auto) 29.2 (16.0-40.0) % [place] % (Auto) 7.9 (0.0-15.0) % Eos % (Auto) 4.2 (0.0-7.0) % Baso % (Auto) 0.6 (0.0-1.5) % Neut # (Auto) 6.9 H (1.4-5.7) K/uL Lymph # (Auto) 3.5 H (0.6-2.4) K/uL Raleigh # (Auto) 0.9 H (0.0-0.8) K/uL Eos # (Auto) 0.5 (0.0-0.7) K/uL Baso # (Auto) 0.1 (0.0-0.1) K/uL Nucleated RBC % 0.0 /100WBC Nucleated RBCs # 0 K/uL Sodium 140 (136-145) mmol/L Potassium 3.9 (3.5-5.1) mmol/L Chloride 104 (98-107) mmol/L Carbon Dioxide 24.5 (21.0-32.0) mmol/L BUN 16 (7.0-18.0) mg/dL Creatinine 1.0 (0.6-1.0) mg/dL Est Cr Clr Drug Dosing 70.71 mL/min Estimated GFR (MDRD) > 60.0 ml/min Glucose 133 H (74-106) mg/dL Lactic Acid 1.7 (0.4-2.0) mmol/L Calcium 9.2 (8.5-10.1) mg/dL Total Bilirubin 0.1 L (0.2-1.0) mg/dL AST 19 (15-37) IU/L ALT 38 (14-63) IU/L Alkaline Phosphatase 51 (46-116) U/L Total Protein 7.6 (6.4-8.2) g/dL Albumin 3.6 (3.4-5.0) g/dL Globulin 4.0 (2.6-4.0) g/dL Albumin/Globulin Ratio 0.9 (0.9-1.6) Influenza Type A RNA (NEGATIVE) Influenza Type B RNA (NEGATIVE) SARS-CoV-2 RNA (FERCHO) (NEGATIVE) 06/29/21 Range/Units 21:03 WBC (4.0-11.0) K/uL RBC (4.30-5.90) M/uL Hgb (12.0-16.0) g/dL Hct (36.0-46.0) % MCV (80.0-98.0) fL MCH (27.0-32.0) pg MCHC (31.0-37.0) g/dL RDW Std Deviation (28.0-62.0) fl RDW Coeff of Arpit (11.0-15.0) % Plt Count (150-400) K/uL MPV (7.40-12.00) fL Neut % (Auto) (48.0-80.0) % Lymph % (Auto) (16.0-40.0) % [place] % (Auto) (0.0-15.0) % Eos % (Auto) (0.0-7.0) % Baso % (Auto) (0.0-1.5) % Neut # (Auto) (1.4-5.7) K/uL Lymph # (Auto) (0.6-2.4) K/uL [place] # (Auto) (0.0-0.8) K/uL Eos # (Auto) (0.0-0.7) K/uL Baso # (Auto) (0.0-0.1) K/uL Nucleated RBC % /100WBC Nucleated RBCs # K/uL Sodium (136-145) mmol/L Potassium (3.5-5.1) mmol/L Chloride (98-107) mmol/L Carbon Dioxide (21.0-32.0) mmol/L BUN (7.0-18.0) mg/dL Creatinine (0.6-1.0) mg/dL Est Cr Clr Drug Dosing mL/min Estimated GFR (MDRD) ml/min Glucose (74-106) mg/dL Lactic Acid (0.4-2.0) mmol/L Calcium (8.5-10.1) mg/dL Total Bilirubin (0.2-1.0) mg/dL AST (15-37) IU/L ALT (14-63) IU/L Alkaline Phosphatase (46-116) U/L Total Protein (6.4-8.2) g/dL Albumin (3.4-5.0) g/dL Globulin (2.6-4.0) g/dL Albumin/Globulin Ratio (0.9-1.6) Influenza Type A RNA NEGATIVE (NEGATIVE) Influenza Type B RNA NEGATIVE (NEGATIVE) SARS-CoV-2 RNA (FERCHO) NEGATIVE (NEGATIVE) Meds: Medications Discontinued Medications Generic Name Dose Route Start Last Admin Trade Name Freq PRN Reason Stop Dose Admin Acetaminophen 1,000 mg 06/29/21 20:48 06/29/21 21:01 Acetaminophen 500 Mg Tab PO 06/29/21 20:49 1,000 mg ONETIME ONE Administration Departure - Departure Time of Disposition: 21:21 Disposition: Home, Self-Care 01 Condition: Fair Clinical Impression: Fatigue - Discharge Information *PRESCRIPTION DRUG MONITORING PROGRAM REVIEWED*: No *COPY OF PRESCRIPTION DRUG MONITORING REPORT IN PATIENT CYNTHIA: No Instructions: Fatigue Forms: ED Department Discharge Additional Instructions: Your evaluated today on an emergent basis. As reviewed and your prescription drug monitoring chart through [place] you were prescribed 120 mg tablets of gabapentin in January 2021. Since that time you have only had one prescription prescribed and that was yesterday by Dr. Thomas. I recommend that you follow- up with your primary care physician to discuss further prescriptions of gabapentin. You did leave prior to your Covid screening and influenza screening. If it is positive you will be called. If you have any worsening symptoms please return to the emergency department. [facility] [address] [place] [address] [facility] [address] [place] [address] The patient is informed of any results of their evaluation and diagnostic workup and all questions are answered. They are given discharge instructions and return precautions. The patient is stable for discharge. The patient states they understand and agree with the plan and that they will return if their symptoms get worse or if they have any new concerns. The following information is given to patients seen in the emergency department who are being discharged to home. This information is to outline your options for follow-up care. We provide all patients seen in our emergency department with a follow-up referral. The need for follow-up, as well as the timing and circumstances, are variable depending upon the specifics of your emergency department visit. If you don't have a primary care physician on staff, we will provide you with a referral. We always advise you to contact your personal physician following an emergency department visit to inform them of the circumstance of the visit and for follow-up with them and/or the need for any referrals to a consulting specialist. The emergency department will also refer you to a specialist when appropriate. This referral assures that you have the opportunity for follow-up care with a specialist. All of these measure are taken in an effort to provide you with optimal care, which includes your follow-up. Under all circumstances we always encourage you to contact your private physician who remains a resource for coordinating your care. When calling for follow-up care, please make the office aware that this follow-up is from your recent emergency room visit. If for any reason you are refused follow-up, please contact the [facility] Emergency Department at and asked to speak to the emergency department charge nurse. Sepsis Event Note (ED) - Evaluation Sepsis Screening Result: No Definite Risk - Focused Exam Vital Signs: Vital Signs Temp Temp Pulse Resp BP Pulse Ox 06/29/21 21:01 37.6 C 06/29/21 20:00 37.3 C 92 18 147/72 H 98
[2021-06-29 21:45] LABS: CORONAVIRUS COVID-19 NAA NEGATIVE (NEGATIVE); INFLUENZA A NAA NEGATIVE (NEGATIVE); INFLUENZA B NAA NEGATIVE (NEGATIVE)
[2021-06-30 00:38] VITALS: BP 134/91; PULSE 78
== END 2021-06-29 21:00 | disposition home or self-care (01) ==
LOC: MW.ED 19:51
DX: R53.83 Other fatigue (principal); E66.9 Obesity, unspecified; Z68.38 Body mass index [BMI] 38.0-38.9, adult; Z88.8 Allergy status to other drugs, medicaments and biological substances; Z88.0 Allergy status to penicillin; Z88.7 Allergy status to serum and vaccine; Z79.899 Other long term (current) drug therapy; Z20.822 Contact with and (suspected) exposure to COVID-19
CPT/HCPCS: 0240U; 36415; 80053; 83605; 85025; 99284; A9270